=== PATIENT | male | born 1940 | race Caucasian/White ===

== ENCOUNTER 2016-12-11 17:10 | Emergency (ER) | payer OTHER ==
--- NOTE | 2016-12-11 17:22 | DR.GENAD ---
HPI - PCP Primary Care Physician: arthur - Complaint/Symptoms Chief Complaint Doctors Comments: Patient reports that he went to his physician this morning and got a shot in left knee for pain. Upon arrival at home he started shivering. He denies chest pain or dyspnea - Nurses notes reviewed Nurses Notes Review: Yes - Source History Provided: EMS PMH - PMH Past Medical History: Arthritis, CHF, Coronary Artery Disease, Depression, Dyslipidemia, GERD, Hypertension Past Surgical History: Yes Surgical History: CABG/Valve Surgery - Family History Family Medical History: [place], Coronary Artery Disease, Heart Failure, Hypertension - Social History Do you use any recreational Drugs:: No ROS - Review of Systems Constitutional: No Symptoms Reported Eyes: No Symptoms Reported ENTM: No Symptoms Reported Respiratoy: No Symptoms Reported Cardiovascular: No Symptoms Reported Gastrointestinal/Abdominal: No Symptoms Reported Genitourinary: No Symptoms Reported Neurological: No Symptoms Reported Musculoskeletal: No Symptoms Reported Integumentary: No Symptoms Reported Hematologic/Lymphatic: No Symptoms Reported Endocrine: No Symptoms Reported Psychiatric: No Symptoms Reported All Other Systems: Reviewed and Negative PE - Vital Signs Vitals: Temperature 98.8 F Pulse Rate 68 Respiratory Rate 16 Blood Pressure 159/77 O2 Sat by Pulse Oximetry 97 - General Limitations: No Limitations General Appearance: Alert, In No Apparent Distress - Head Head Exam: Normal Inspection, Atraumatic - Eyes Eye exam: Normal Appearance, PERRL, EOMI - ENT ENT Exam: Normal Exam TM/Canal Exam: Bilateral Normal Nose Exam: Normal Nose Exam Mouth Exam: Normal Inspection Throat Exam: Normal Inspection - Neck Neck Exam: Normal Inspection - Chest Chest Inspection: Normal Inspection - Respiratory Respiratory Exam: Normal Lung Sounds Bilat Respiratory Exam: Bilateral Clear to Auscultation - Cardiovascular Cardiovascular Exam: Regular Rate, Normal Rhythm - Abdominal Exam Abdominal Exam: Normal Inspection Abdominal Tenderness: negative: RUQ, RLQ, LUQ, LLQ, Epigastrium, Suprapubic, Diffuse, Mild, Moderate, Severe, Other - Extremities Extremities Exam: Normal Inspection, Full ROM - Back Back Exam: Normal Inspection, Full ROM - Neurologic Neurological Exam: Alert, Oriented X3, CN II-XII Intact - Psychiatric Psychiatric Exam: Normal Affect - Skin Skin Exam: Warm, Dry, Intact Course - Treatment Treatment: IVF, - Reevaluation 1st: Improved ROR - Labs Reviewed Result Diagrams: 12/11/16 17:40 12/11/16 17:40 Laboratory: WBC 4.7 X10^3/uL (3.6-10.0) 12/11/16 17:40 RBC 4.17 X10^6/uL (4.7-6.0) L 12/11/16 17:40 Hgb 13.0 g/dL (13.5-18.0) L 12/11/16 17:40 Hct 38.1 % (42.0-54.0) L 12/11/16 17:40 MCV 91.4 fL (80.0-100.0) 12/11/16 17:40 MCH 31.1 pg (27.0-34.0) 12/11/16 17:40 MCHC 34.1 g/dL (33.0-35.0) 12/11/16 17:40 RDW 13.7 % (11.6-16.5) 12/11/16 17:40 Plt Count 112 X10^3/uL (150.0-450.0) L 12/11/16 17:40 MPV 8.3 fL (7.4-11.0) 12/11/16 17:40 Neut % 84.4 % (42.0-75.0) H 12/11/16 17:40 Lymph % 3.4 % (21.0-51.0) L 12/11/16 17:40 [place] % 4.7 % (0.0-13.0) 12/11/16 17:40 Eos % 7.1 % (0.9-2.9) H 12/11/16 17:40 Baso % 0.4 % (0.2-1.0) 12/11/16 17:40 Neut # 4.0 x10^3/uL (2.2-4.8) 12/11/16 17:40 Lymph # 0.2 X10^3/uL (1.3-2.9) L 12/11/16 17:40 [place] # 0.2 x10^3/uL (0.3-0.8) L 12/11/16 17:40 Eos # 0.3 x10^3/uL (0.0-0.2) H 12/11/16 17:40 Baso # 0.0 X10^3/uL (0.0-0.1) 12/11/16 17:40 Absolute Nucleated RBC 0.0 /100WBC 12/11/16 17:40 Sodium 141 mmol/L (136-145) 12/11/16 17:40 Corrected Sodium TNP 12/11/16 17:40 Potassium 5.1 mmol/L (3.5-5.1) 12/11/16 17:40 Chloride 108 mmol/L (98-107) H 12/11/16 17:40 Carbon Dioxide 25.7 mmol/L (21-32) 12/11/16 17:40 BUN 19 mg/dL (7-18) H 12/11/16 17:40 Creatinine 1.14 mg/dL (0.70-1.30) 12/11/16 17:40 Est GFR (MDRD) Af Amer > 60 (>60) 12/11/16 17:40 Est GFR (MDRD) Non-Af > 60 (>60) 12/11/16 17:40 Glucose 100 mg/dL (65-99) H 12/11/16 17:40 Calcium 8.8 mg/dL (8.5-10.1) 12/11/16 17:40 Corrected Calcium TNP 12/11/16 17:40 Total Bilirubin 0.90 mg/dL (0.2-1.0) 12/11/16 17:40 AST 24 Units/L (15-37) 12/11/16 17:40 ALT 23 Units/L (12-78) 12/11/16 17:40 Alkaline Phosphatase 82 Units/L (46-116) 12/11/16 17:40 C-Reactive Protein 2.70 mg/L (0-3.0) 12/11/16 17:40 Total Protein 7.1 g/dL (6.4-8.2) 12/11/16 17:40 Albumin 3.7 g/dL (3.4-5.0) 12/11/16 17:40 Globulin 3.4 g/dL (2.5-4.5) 12/11/16 17:40 Albumin/Globulin Ratio 1.1 Ratio (1.1-2.1) 12/11/16 17:40 - XRAY XRAY Interpreted by: Self (S/P CABG, no acute pulmonary disease) - Diagnosis Discharge Problem: Chills (without fever) - Discharge Plan Condition: Stable - Follow ups/Referrals Follow ups/Referrals: Sunday Gann [Primary Care Provider] - 3 days - Instructions
[2016-12-11 17:26] VITALS: BP 159/77; BMI 29.6
[2016-12-11] MEDS ORDERED: NS 1000 ML 1,000 ML ONE (17:27)
[2016-12-11] MEDS ORDERED: NS 1000 ML 1,000 ML IV SCH (18:00)
[2016-12-11 18:04] LABS: BASOPHILS % (AUTO) 0.4 % (0.2-1.0); EOSINOPHILS # (AUTO) 0.3 x10^3/uL (0.0-0.2); EOSINOPHILS % (AUTO) 7.1 % (0.9-2.9); HEMATOCRIT 38.1 % (42.0-54.0); LYMPHOCYTES # (AUTO) 0.2 X10^3/uL (1.3-2.9); LYMPHOCYTES % (AUTO) 3.4 % (21.0-51.0); MEAN CORPUSCULAR HEMOGLOBIN 31.1 pg (27.0-34.0); MEAN CORPUSCULAR HGB CONC 34.1 g/dL (33.0-35.0); MEAN CORPUSCULAR VOLUME 91.4 fL (80.0-100.0); MEAN PLATELET VOLUME 8.3 fL (7.4-11.0); MONOCYTES # (AUTO) 0.2 x10^3/uL (0.3-0.8); MONOCYTES % (AUTO) 4.7 % (0.0-13.0); NEUTROPHILS % (AUTO) 84.4 % (42.0-75.0); PLATELET COUNT 112 X10^3/uL (150.0-450.0); RED BLOOD COUNT 4.17 X10^6/uL (4.7-6.0); RED CELL DISTRIBUTION WIDTH 13.7 % (11.6-16.5); WHITE BLOOD COUNT 4.7 X10^3/uL (3.6-10.0)
[2016-12-11 18:14] LABS: ALANINE AMINOTRANSFERASE 23 Units/L (12-78); ALBUMIN 3.7 g/dL (3.4-5.0); ALKALINE PHOSPHATASE 82 Units/L (46-116); ASPARTATE AMINO TRANSFERASE 24 Units/L (15-37); BLOOD UREA NITROGEN 19 mg/dL (7-18); CALCIUM 8.8 mg/dL (8.5-10.1); CARBON DIOXIDE 25.7 mmol/L (21-32); CHLORIDE 108 mmol/L (98-107); CREATININE 1.14 mg/dL (0.70-1.30); GLUCOSE 100 mg/dL (65-99); SODIUM 141 mmol/L (136-145); TOTAL PROTEIN 7.1 g/dL (6.4-8.2); eGFR BLACK RACES > 60 (>60); eGFR NON BLACK RACES > 60 (>60)
--- NOTE | 2016-12-11 19:45 | RAD ---
HISTORY: Fever Study: Chest one view Comparison: December 21, 2015 Findings: The patient is status post median sternotomy and CABG. The heart is enlarged. No congestive heart fa ilure is noted. The jaz are normal. The lungs are hyperinflated consistent with COPD. There is a roberts btle right basilar infiltrate suggestive of pneumonia. No pleural effusions are identified. The bony thorax is unremarkable. IMPRESSION: Cardiomegaly without congestive heart failure Right basilar pneumonia COPD Reported By:
[2016-12-11] MEDS ORDERED: LEVAQUIN PREMIX IV 750 MG 750 MG/150 ML BAG IV ONE ×2 (19:56→20:02)
== END 2016-12-11 21:21 | disposition home or self-care (01) ==
LOC: ER 17:10
DX: J18.9 Pneumonia, unspecified organism (principal); J44.9 Chronic obstructive pulmonary disease, unspecified; I51.7 Cardiomegaly; R68.83 Chills (without fever)
CPT/HCPCS: 36415; 71010; 80053; 85025; 86140; 96365; 96367; 96374; 99283; A4222; J1956

== ENCOUNTER → 2017-04-03 | Outpatient (CLI) | payer OTHER ==
--- NOTE | 2017-04-03 12:58 | MRI ---
MRI left knee without contrast Indication: Left knee pain. Technique: Multi sequence, multiplanar MR images of the left knee were obtained without contrast. Comparison: None Findings: No acute fracture, malalignment or suspicious osseous lesion is identified. There is diffuse full thickness cartilage loss throughout the weight-bearing medial femorotibial com partment with patchy subchondral edema within the medial condyle and tibial plateau. The articular c artilage of the lateral compartment demonstrates mild diffuse thinning, but otherwise appears relati vely well maintained. Small full thickness cartilage defects with subchondral edema are also present throughout the patellofemoral compartment, greatest along the medial patellar facet and mid sagitta l ridge. A small joint effusion is present. A tiny popliteal fossa cyst is also noted. There is a complex degenerative tear of the posterior horn and body medial meniscus with a horizonta l component extending into the anterior junctional zone. The posterior horn tear demonstrates a radi al component with mild associated extrusion of the medial meniscal body. No parameniscal cyst is ayaka ntified.. The lateral meniscus, ACL, PCL superficial MCL, major lateral stabilizers of the knee and extensor m echanism appear intact. Mild edema about the superficial MCL is likely reactive from underlying meni scal tear. Impression: 1. 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 2. Mild chondral degeneration of the medial patellofemoral compartment. 3. Small reactive joint effusion. Reported By:
== END ==
LOC: RAD 09:03
PROVIDERS: ATTEND Internal Medicine
DX: M25.562 Pain in left knee (principal); M25.462 Effusion, left knee
CPT/HCPCS: 73721

== ENCOUNTER → 2017-05-08 | Outpatient (CLI) | payer OTHER ==
--- NOTE | 2017-05-09 09:21 | MRI ---
HISTORY: Low back pain Study: Noncontrast MRI of the lumbar spine Comparison: No priors. A report is made available from three-view lumbar spine done at Dr. Gann's office on May 05, 2017. Advanced degenerative disc disease was noted that exam. Technique: Multiplanar multi-sequence MRI of the lumbar spine was obtained. Sagittal T1, sagittal T 2, and stir weighted images, axial T1, and axial T2 images were obtained. Findings: No fracture or subluxation is seen. Conus terminates at the L1 level. There is fatty change present throughout the bone marrow of the lumbar spine region. Atherosclerotic irregularity is present invol ving the evans of the abdominal aorta without apparent aneurysm formation. No paraspinous mass or fl uid collection is seen there is disc space narrowing and disc desiccation at L4-5 and L5-S1. T12 -- L1: 5.7 millimeter Tarlov cyst present in the right lateral neural foramen. No disc protrusio n, central spinal stenosis lateral foraminal stenosis is seen. L1 -- L2: Mild bilateral facet joint hypertrophy. No disc protrusion, central spinal stenosis or lat eral foraminal stenosis is seen. L2 -- L3: Very mild bilateral facet joint hypertrophy and ligamentum flavum hypertrophy without disc protrusion, central spinal stenosis lateral foraminal stenosis. L3 -- L4: Facet joint and ligamentum flavum hypertrophy. No disc protrusion, central spinal stenosis or foraminal stenosis is seen. Multiple small bilateral cysts are present within the lateral forami nal regions. L4 -- L5: Disc space narrowing and disc desiccation. There is bilateral facet joint and ligamentum h ypertrophy. No central spinal stenosis is seen. Mild bilateral foraminal stenosis is appreciated. L5 -- S1: Disc space narrowing and disc desiccation. Moderate bilateral foraminal stenosis is apprec iated. No central spinal stenosis is seen. IMPRESSION: Multilevel abnormalities as detailed above. Reported By:
== END | disposition home or self-care (01) | DRG 552 ==
LOC: RAD 09:08
PROVIDERS: ATTEND Internal Medicine
DX: M54.5 Low back pain (principal); M47.896 Other spondylosis, lumbar region
CPT/HCPCS: 72148

== ENCOUNTER → 2017-12-31 | Outpatient (CLI) | payer OTHER ==
--- NOTE | 2017-12-31 10:26 | CT ---
CT pelvis without contrast Indication: Right-sided hip pain with fall several weeks prior Technique: 3 mm axial images of the pelvis with coronal and sagittal reformatted images provided with out IV contrast administration. Findings: There appear to be subacute minimally displaced fractures of the right inferior and superio r pubic rami. There is sclerosis noted within the right pubic tubercle and linear lucency seen on cor onal image 36 consistent with subacute potentially insufficiency fractures. There is also linear luce ncy within the right iliac wing extending to the SI joint seen on axial image 30 with sclerosis and p eriosteal reaction consistent with subacute fracture. The fracture extends inferiorly all into a lowe r portion of the SI joint seen on axial image 35. The no acute femoral head or femoral neck fracture identified. Chronic osteopenic insufficiency fractures are noted within bilateral sacral ala. Moderat e degenerative changes noted within both SI joints and mild degenerative change of the pubic symphysi s joint. Chronic buckle fracture deformity of the S1 sacral body with sclerosis is also noted. The th e imaging of the deep pelvis demonstrates moderate calcified atherosclerotic disease and tortuosity o f the abdominal aorta. Impression: 1. Multiple fractures within the pelvis all of which appear to be subacute to chronic in age. There a re minimally displaced right inferior and superior pubic rami fractures, nondisplaced right pubic tub ercle fracture and fracture of the right ilium extending into the superior and inferior portion of th e right SI joint without diastases. Insufficiency fractures are noted within bilateral sacral ala and likely chronic, insufficiency fracture of the S2 sacral body. Neither femoral head demonstrates evid ence of malalignment or fracture. No femoral neck fracture identified. 2. Moderate osteopenia throughout the visualized lumbar spine and pelvis. 3. Given the multiple likely subacute/chronic pelvic fractures if it will make a difference in patien t care MRI examination can be performed for determination of acuity of fracture deformities. Reported By:
--- NOTE | 2017-12-31 14:41 | NM ---
HISTORY: Multiple pelvic fractures. Study: Nuclear medicine whole-body bone scan Comparison: Pelvic CT examination dated 12/31/2017. Technique: Whole body bone scintigraphy was performed in the anterior and posterior projection after the intravenous administration of 25.0 mCi of technetium labeled MDP. Findings: Abnormal uptake is seen within the iliac bones bilaterally, right superior pubic ramus, right inferio r pubic ramus, and right ischium which would be consistent with the patient's known, multifocal, pelv ic fractures which are better defined on the comparative pelvic CT examination. Degenerative uptake is seen within the spine, knee joints, and shoulder joints bilaterally. No other abnormal FDG uptake is seen to suggest an additional fracture. There is appropriate renal uptake and excretion appreciated. There is abnormal soft tissue MDP uptake also observed. IMPRESSION: Abnormal uptake is seen within the iliac bones bilaterally, right superior pubic ramus, right inferio r pubic ramus, and right ischium which would be consistent with the patient's known, multifocal, pelv ic fractures which are better defined on the comparative pelvic CT examination. These multifocal fractures could be traumatic or insufficiency related. No additional focal uptake se en to suggest malignancy or additional fractures on this bone scan examination. Degenerative appearin g MDP uptake seen within the knee joints, spine, hip joints, shoulder joints bilaterally. Reported By:
== END ==
LOC: RAD 09:20
PROVIDERS: ATTEND Orthopaedic Surgery
DX: M25.551 Pain in right hip (principal); M16.11 Unilateral primary osteoarthritis, right hip; S32.810A Multiple fractures of pelvis with stable disruption of pelvic ring, initial encounter for closed fracture; X58.XXXA Exposure to other specified factors, initial encounter; M85.89 Other specified disorders of bone density and structure, multiple sites
CPT/HCPCS: 72192; 78306; A9503

== ENCOUNTER 2019-09-20 15:56 | Observation (INO) ==
--- NOTE | 2019-09-20 18:18 | DR.DIZZY ---
HPI Time seen Time Seen by Provider: 09/20/19 18:07 PCP Primary Care Physician: Azeem HPI Comment HPI Comment: PATIENT IS 79YR OLD MALE IN ER WITH FAMILY WITH GENERALIZED WEAKNESS, DIZZINESS, ANOREXIA AND FEELING OF NOT WANTING TO GET UP AND WALK [place]. FEEL WHEN HE TRY TO GET UP DUE TO DIZZINESS. NO FEVER, CHEST PAIN, ABDOMINAL PAIN OR DYSURIA. Complaint Chief Complaint Doctor Comments: DIZZINESS, GENERALIZED WEAKNESS AND FEELING LIKE HE CANNOT WALK SINCE YESTERDAY. Chief Complaint:: "Since yesterday I have been getting really dizzy. I don't feel like I can even walk good right now. I also fell at home from being dizzy." Nurses Notes Reviewed Nurses Notes Review: Yes Source History Provided: Patient and Family Member Mode of Arrival Mode of Arrival: Wheelchair Timing Onset of Chief Complaint: 09/19/19 Came on: Suddenly Duration Duration: Constant Duration: Days Location of Weakness Weakness Location: Generalized Context Onset: At rest and With light exertion Does pt take pot. toxic medication?: No History of: None Stroke Symptoms: Dizziness Severity Severity: Abnormal activity level Modifying factors Worsens: Other (ACTIVITY.) Associated signs and symptoms Associated Signs and Symptoms: Weak and Headache PMH PMH Past Medical History: Yes Past Medical History: Arthritis, CHF, Coronary Artery Disease, Depression, Dyslipidemia, GERD and Hypertension Past Surgical History: Yes Surgical History: CABG/Valve Surgery Family History History of Family Medical Conditions: Yes Family Medical History: [place], Coronary Artery Disease, Heart Failure and Hypertension Social History Does patient currently use any type of tobacco product: No Have you used tobacco products in the last 12 months: No Type of Tobacco Use: None Does any household member use tobacco: No Alcohol Use: None Do you use any recreational Drugs:: No Lives With: Alone Lives Where: Home infectious screening In the last 2 months have you had wt loss of >10#?: NO Have you had fever, night sweats or hemotysis?: No Have you traveled outside the country in the last 6 months?: No Isolation: Standard ROS Review of Systems Constitutional: See HPI, Weakness, Fatigue and Loss of Appetite; negative Fever Eyes: No Symptoms Reported and See HPI ENTM: No Symptoms Reported and See HPI; negative Ear Pain, Nose Discharge, Nose Congestion and Throat Pain Respiratoy: No Symptoms Reported, See HPI and Short of Breath (ON EXERTION.) Cardiovascular: No Symptoms Reported and See HPI; negative Chest Pain, Edema, Palpitations and Syncope Gastrointestinal/Abdominal: No Symptoms Reported and See HPI; negative Abdominal Pain, Constipation, Diarrhea, Nausea and Vomiting Genitourinary: No Symptoms Reported and See HPI; negative Dysuria, Hematuria and Pain Neurological: See HPI, Headache, Weakness and Dizziness Musculoskeletal: See HPI and Muscle Pain; negative Back Pain Integumentary: Dryness Hematologic/Lymphatic: Easy Bruising; negative Swollen Glands Endocrine: Increased Thirst and Decreased Appetite; negative Increased Urine Psychiatric: No Symptoms Reported and See HPI All Other Systems: Reviewed and Negative PE Vital Signs Vitals: Temperature 98 F Pulse Rate [Left Brachial] 94 Pulse Rate 93 Respiratory Rate 20 Blood Pressure [Right Arm] 151/98 Blood Pressure 168/93 O2 Sat by Pulse Oximetry 98 General Limitations: No Limitations General Appearance: Alert and In No Apparent Distress Head Head Exam: Normal Inspection and Atraumatic Eyes Eye exam: Normal Appearance, PERRL and EOMI; negative Scleral Icterus and Conjunctival Injection Pupils: Regular, Round: Bilateral and Reactive: Bilateral Sclera/Conjunctival: Normal Inspection: Bilateral ENT ENT Exam: Normal Exam, Normal Oropharynx, Normal External Ear Exam and TM's Normal Bilaterally Neck Neck Exam: Normal Inspection and Trachea Midline; negative Tenderness and Lymphadenopathy Chest Chest Inspection: Normal Inspection and Symmetric Chest Wall Rise; negative Tenderness Respiratory Respiratory Exam: Normal Lung Sounds Bilat; negative Accessory Muscle Use, Chest Wall Tenderness and Respiratory Distress Respiratory Exam: Bilateral: Rhonchi and Lower: Rhonchi Cardiovascular Cardiovascular Exam: Regular Rate, Normal Rhythm and Normal Heart Sounds; negative Systolic Murmur and Diastolic Murmur Abdominal Exam Abdominal Exam: Normal Inspection, Normal Bowel Sounds and Soft; negative Tenderness Rectal Rectal Exam: Deferred Extremeties Extremities Exam: Normal Inspection and Normal Capillary Refill; negative Tenderness, Edema and Calf Tenderness Back Back Exam: Normal Inspection; negative Tenderness, (R) CVA Tenderness and (L) CVA Tenderness Neurologic Neurological Exam: Alert, Oriented X3 and CN II-XII Intact; negative Motor Sensory Deficit Patient Oriented To: Person, Place and Time Cranial Nerve Exam: EOM Function (II, III, IV, ): Normal, Facial Sensation (V): Normal, Facial Palsy (VII): Normal, Gag reflex (XI): Normal and Tongue Deviation: Normal Motor Strength - LUE: 5/5 Motor Strength - RUE: 5/5 Motor Strength - LLE: 5/5 Motor Strength - RLE: 5/5 Upper Motor Neuron Exam: Babinski Sign: Normal Psychiatric Psychiatric Exam: Normal Affect and Normal Mood Skin Skin Exam: Dry MDM Additional Information Obtained Additional Information Obtained From: Family Differential Diagnosis Differential Diagnosis: Anemia, CVA, Dehydration, Dysrhythmia, Electrolyte disorder, Hypoglycemia, Myocardial infarction, TIA and Central Vertigo COURSE Treatment Treatment: SEE ORDERS. NS 1L PLUS KCL 40MEQ AT 125CC/HR. Consultation Consultation Comments: DISCUSSED PATIENT WITH DR. AGUIAR AND HE WILL ADMIT PATIENT. Education/Counseling Education/Counseling: Patient and Family Educated On: Diagnosis ROR Labs Reviewed Laboratory Results Reviewed?: Yes Result Diagrams: 09/21/19 04:52 09/21/19 04:52 Laboratory: WBC 5.2 X10^3/uL (3.6-10.0) 09/20/19 18:31 RBC 3.96 X10^6/uL (4.7-6.0) L 09/20/19 18:31 Hgb 13.0 g/dL (13.5-18.0) L 09/20/19 18:31 Hct 37.2 % (42.0-54.0) L 09/20/19 18:31 MCV 94.2 fL (80.0-100.0) 09/20/19 18:31 MCH 32.9 pg (27.0-34.0) 09/20/19 18:31 MCHC 34.9 g/dL (33.0-35.0) 09/20/19 18:31 RDW 13.4 % (11.6-16.5) 09/20/19 18:31 Plt Count 150 X10^3/uL (150.0-450.0) 09/20/19 18:31 MPV 8.1 fL (7.4-11.0) 09/20/19 18:31 Neut % (Auto) 67.2 % (42.0-75.0) 09/20/19 18:31 Lymph % (Auto) 10.3 % (21.0-51.0) L 09/20/19 18:31 [place] % (Auto) 10.1 % (0.0-13.0) 09/20/19 18:31 Eos % (Auto) 12.2 % (0.9-2.9) H 09/20/19 18:31 Baso % (Auto) 0.2 % (0.2-1.0) 09/20/19 18:31 Neut # (Auto) 3.5 x10^3/uL (2.2-4.8) 09/20/19 18:31 Lymph # (Auto) 0.5 X10^3/uL (1.3-2.9) L 09/20/19 18:31 [place] # (Auto) 0.5 x10^3/uL (0.3-0.8) 09/20/19 18:31 Eos # (Auto) 0.6 x10^3/uL (0.0-0.2) H 09/20/19 18:31 Baso # (Auto) 0.0 X10^3/uL (0.0-0.1) 09/20/19 18:31 Absolute Nucleated RBC 0.0 /100WBC 09/20/19 18:31 Sodium 142 mmol/L (136-145) 09/20/19 18:31 Corrected Sodium 145 mmol/L (136-145) 09/20/19 18:31 Potassium 2.9 mmol/L (3.5-5.1) L* 09/20/19 18:31 Chloride 106 mmol/L (98-107) 09/20/19 18:31 Carbon Dioxide 27.3 mmol/L (21-32) 09/20/19 18:31 BUN 19 mg/dL (7-18) H 09/20/19 18:31 Creatinine 1.63 mg/dL (0.70-1.30) H 09/20/19 18:31 Est GFR (MDRD) Af Amer 53 (>60) L 09/20/19 18:31 Est GFR (MDRD) Non-Af 43 (>60) L 09/20/19 18:31 Glucose 209 mg/dL (65-99) H 09/20/19 18:31 Hemoglobin A1c 6.6 % 09/20/19 18:31 Calcium 8.9 mg/dL (8.5-10.1) 09/20/19 18:31 Corrected Calcium TNP 09/20/19 18:31 Magnesium 2.2 mg/dL (1.7-2.9) 09/20/19 18:31 Total Bilirubin 0.40 mg/dL (0.2-1.0) 09/20/19 18:31 AST 18 Units/L (15-37) 09/20/19 18:31 ALT 16 Units/L (12-78) 09/20/19 18:31 Alkaline Phosphatase 65 Units/L (46-116) 09/20/19 18:31 Creatine Kinase 43 Units/L (39-308) 09/20/19 18:31 CK-MB (CK-2) < 1.0 ng/mL (0-4.0) 09/20/19 18:31 CK/CKMB % Calc 2.3 % (<4) 09/20/19 18:31 Troponin I < 0.02 ng/mL (0-1.5) 09/20/19 18:31 Total Protein 7.2 g/dL (6.4-8.2) 09/20/19 18:31 Albumin 3.5 g/dL (3.4-5.0) 09/20/19 18:31 Globulin 3.7 g/dL (2.5-4.5) 09/20/19 18:31 Albumin/Globulin Ratio 0.9 Ratio (1.1-2.1) L 09/20/19 18:31 Specimen Type Clean catch urine 09/20/19 19:08 Urine Color Yellow (YELLOW) 09/20/19 19:08 Urine Appearance Slightly hazy (CLEAR) 09/20/19 19:08 Urine pH 5.0 (5.0 - 8.0) 09/20/19 19:08 Ur Specific [place] 1.015 (1.000-1.030) 09/20/19 19:08 Urine Protein 1+ (NEGATIVE) 09/20/19 19:08 Urine Glucose (UA) 4+ (NEGATIVE) 09/20/19 19:08 Urine Ketones Negative (NEGATIVE) 09/20/19 19:08 Urine Occult Blood 1+ (NEGATIVE) 09/20/19 19:08 Urine Nitrite Negative (NEGATIVE) 09/20/19 19:08 Urine Bilirubin Negative (NEGATIVE) 09/20/19 19:08 Urine Urobilinogen Normal (NORMAL) 09/20/19 19:08 Ur Leukocyte Esterase Negative (NEGATIVE) 09/20/19 19:08 Urine RBC 0-2 /HPF (0-3) 09/20/19 19:08 Urine WBC 0-2 /HPF (0-5) 09/20/19 19:08 Ur Squamous Epith Cells Few /HPF (NEGATIVE) 09/20/19 19:08 Urine Bacteria Trace /HPF (NEGATIVE) 09/20/19 19:08 Urine Mucus Few /HPF (NEGATIVE) 09/20/19 19:08 Ur Culture Indicated? No/not indicated 09/20/19 19:08 XRAY XRAY Interpreted by: Radiologist XRAY Findings: REPORTS NOTED AND DISCUSSED WITH PATIENT. EKG Rate: 82 [place]: Normal Rhythm: NSR Block: None Hypertrophy: LVH ST: Nonsp Opioid Opioid Risk Tool Age (Ankur box if 16-45): No History of Preadolescent Sexual Abuse: No Total: 0 Total Score Risk Category: Low Risk Copyright: Denzel ANN predicting aberrant behaviors
[2019-09-20 18:53] LABS: BASOPHILS % (AUTO) 0.2 % (0.2-1.0); EOSINOPHILS # (AUTO) 0.6 x10^3/uL (0.0-0.2); EOSINOPHILS % (AUTO) 12.2 % (0.9-2.9); HEMATOCRIT 37.2 % (42.0-54.0); LYMPHOCYTES # (AUTO) 0.5 X10^3/uL (1.3-2.9); LYMPHOCYTES % (AUTO) 10.3 % (21.0-51.0); MEAN CORPUSCULAR HEMOGLOBIN 32.9 pg (27.0-34.0); MEAN CORPUSCULAR HGB CONC 34.9 g/dL (33.0-35.0); MEAN CORPUSCULAR VOLUME 94.2 fL (80.0-100.0); MEAN PLATELET VOLUME 8.1 fL (7.4-11.0); MONOCYTES # (AUTO) 0.5 x10^3/uL (0.3-0.8); MONOCYTES % (AUTO) 10.1 % (0.0-13.0); NEUTROPHILS # (AUTO) 3.5 x10^3/uL (2.2-4.8); NEUTROPHILS % (AUTO) 67.2 % (42.0-75.0); PLATELET COUNT 150 X10^3/uL (150.0-450.0); RED BLOOD COUNT 3.96 X10^6/uL (4.7-6.0); RED CELL DISTRIBUTION WIDTH 13.4 % (11.6-16.5); WHITE BLOOD COUNT 5.2 X10^3/uL (3.6-10.0)
--- NOTE | 2019-09-20 19:05 | RAD ---
CHEST, 1 VIEWHISTORY: SOBStudy: AP view of the chest.Comparison:NoneFindings:The cardiomediastinal silhouette is normal. No focal consolidations, pleural effusions or pneumothorax. Scarring atelectasis of the lung bases bilaterally. Bilateral hyperexpansion and interstitial prominence.IMPRESSION:1. No acute cardiopulmonary process.2. Findings of COPD.Electronically signed by: ADRIAN DUMAS (Sep 20, 2019 19:03:25)
--- NOTE | 2019-09-20 19:12 | CT ---
HISTORY: Headaches and mental status changeStudy: CT brain without contrastComparison: 12/25/2018Technique:Multiple axial images of the brain were obtained from the skull base to the vertex without administration of IV contrast. Automated dose control was utilized.Findings:The ventricles are mildly enlarged with diffuse mild prominence of the cortical sulci. There is mild periventricular low density bilaterally. No intracranial hemorrhage or edema is seen. There is no extra-axial fluid collection or mass. There is moderate mucosal thickening throughout the ethmoid and sphenoid sinuses extending into the maxillary air cells. There are no air-fluid levels. No fracture is seen. The midline structures are unremarkable.IMPRESSION:Mild atrophy and mild chronic microischemic changes scattered in the deep white matter with no acute intracranial abnormality seen.Moderate chronic pansinusitis.Electronically signed by: YARA LOO (Sep 20, 2019 19:11:07)
[2019-09-20 19:24] LABS: APPEARANCE,URINE SLIGHTLY HAZY (CLEAR); BILIRUBIN,URINE NEGATIVE (NEGATIVE); BLOOD/HEMOGLOBIN,URINE 1+ (NEGATIVE); COLOR,URINE YELLOW (YELLOW); GLUCOSE, URINE 4+ (NEGATIVE); KETONES,URINE NEGATIVE (NEGATIVE); LEUKOCYTE ESTERASE ,URINE NEGATIVE (NEGATIVE); NITRITES,URINE NEGATIVE (NEGATIVE); PROTEIN,URINE 1+ (NEGATIVE); UROBILINOGEN,URINE NORMAL (NORMAL)
[2019-09-20 19:29] LABS: RBC,URINE 0-2 /HPF (0-3)
[2019-09-20 19:30] LABS: BACTERIA,URINE TRACE /HPF (NEGATIVE); MUCUS,URINE FEW /HPF (NEGATIVE); SQUAMOUS EPITHELIAL CELL,UR FEW /HPF (NEGATIVE)
[2019-09-20 19:40] LABS: ALANINE AMINOTRANSFERASE 16 Units/L (12-78); ALBUMIN 3.5 g/dL (3.4-5.0); ALKALINE PHOSPHATASE 65 Units/L (46-116); ASPARTATE AMINO TRANSFERASE 18 Units/L (15-37); BLOOD UREA NITROGEN 19 mg/dL (7-18); CALCIUM 8.9 mg/dL (8.5-10.1); CARBON DIOXIDE 27.3 mmol/L (21-32); CHLORIDE 106 mmol/L (98-107); CKMB % 2.3 % (<4); COR NA(FOR HYPERGLY) 145 mmol/L (136-145); CREATINE KINASE 43 Units/L (39-308); CREATINE KINASE MB < 1.0 ng/mL (0-4.0); CREATININE 1.63 mg/dL (0.70-1.30); SODIUM 142 mmol/L (136-145); TOTAL PROTEIN 7.2 g/dL (6.4-8.2); TROPONIN I < 0.02 ng/mL (0-1.5); eGFR NON BLACK RACES 43 (>60)
[2019-09-20] MEDS: NS + KCL 40 MEQ/L 1,000 ML IV SCH (21:23)
[2019-09-20 22:22] VITALS: BMI 25.9
[2019-09-20 23:11] LABS: CKMB % 2.4 % (<4); CREATINE KINASE 41 Units/L (39-308); CREATINE KINASE MB < 1.0 ng/mL (0-4.0); TROPONIN I 0.02 ng/mL (0-1.5)
[2019-09-21] MEDS: NS + KCL 40 MEQ/L 1,000 ML IV SCH (05:41)
[2019-09-21 06:02] LABS: ALANINE AMINOTRANSFERASE 13 Units/L (12-78); ALBUMIN 3.1 g/dL (3.4-5.0); ALKALINE PHOSPHATASE 58 Units/L (46-116); ASPARTATE AMINO TRANSFERASE 16 Units/L (15-37); BLOOD UREA NITROGEN 15 mg/dL (7-18); CALCIUM 8.4 mg/dL (8.5-10.1); CHLORIDE 110 mmol/L (98-107); CKMB % 2.5 % (<4); COR CA(FOR HYPOALB) 9.1 mg/dL (8.5-10.1); COR NA(FOR HYPERGLY) 145 mmol/L (136-145); CREATINE KINASE 40 Units/L (39-308); CREATINE KINASE MB < 1.0 ng/mL (0-4.0); CREATININE 1.35 mg/dL (0.70-1.30); MAGNESIUM 1.8 mg/dL (1.7-2.9); SODIUM 144 mmol/L (136-145); TOTAL PROTEIN 6.3 g/dL (6.4-8.2); TROPONIN I 0.02 ng/mL (0-1.5); eGFR NON BLACK RACES 54 (>60)
[2019-09-21 06:05] LABS: BASOPHILS % (AUTO) 0.3 % (0.2-1.0); EOSINOPHILS # (AUTO) 0.6 x10^3/uL (0.0-0.2); EOSINOPHILS % (AUTO) 12.3 % (0.9-2.9); HEMATOCRIT 33.7 % (42.0-54.0); LYMPHOCYTES # (AUTO) 0.6 X10^3/uL (1.3-2.9); LYMPHOCYTES % (AUTO) 11.1 % (21.0-51.0); MEAN CORPUSCULAR HEMOGLOBIN 33.5 pg (27.0-34.0); MEAN CORPUSCULAR HGB CONC 35.6 g/dL (33.0-35.0); MEAN CORPUSCULAR VOLUME 94.1 fL (80.0-100.0); MEAN PLATELET VOLUME 8.3 fL (7.4-11.0); MONOCYTES # (AUTO) 0.5 x10^3/uL (0.3-0.8); MONOCYTES % (AUTO) 9.7 % (0.0-13.0); NEUTROPHILS # (AUTO) 3.5 x10^3/uL (2.2-4.8); NEUTROPHILS % (AUTO) 66.6 % (42.0-75.0); PLATELET COUNT 149 X10^3/uL (150.0-450.0); RED BLOOD COUNT 3.58 X10^6/uL (4.7-6.0); RED CELL DISTRIBUTION WIDTH 13.6 % (11.6-16.5); WHITE BLOOD COUNT 5.3 X10^3/uL (3.6-10.0)
[2019-09-21 12:08] VITALS: BP 170/89
[2019-09-21] MEDS ORDERED: COLACE CAP 100 MG PO SCH (21:00)
--- NOTE | 2019-09-24 15:24 | DR.CARTERS ---
Short Stay Summary - Admission Date Date of Admission: 09/20/19 - Discharge Date Discharge Date: 09/21/19 - Admission Diagnoses (1) Hypokalemia Status: Acute (2) Generalized weakness Status: Acute (3) Dehydration Status: Acute (4) Vertigo Status: Acute - Hospital Course Hospital Course: IS A 79 YEAR OLD PATIENT OF OURS WHO PRESENTED TO THE ER WITH COMPLAINTS OF DIZZINESS, GENERALIZED WEAKNESS, UNSTEADY GAIT X 1 DAY, AND SHORTNESS OF BREATH ON EXERTION. HE ALSO REPORTED FALLING AT HOME DUE TO DIZZINESS. FAMILY REPORTED THAT HE HAS NOT BEEN EATING WELL. HE HAS A PMH OF CAD, CHF, HTN, ARTHRITIS, DYSLIPIDEMIA, GERD, AND CABG. ON ARRIVAL, VITALS WERE 98.0-112-18-97%-171/97. LABS WERE OBTAINED. ABNORMAL LAB VALUES INCLUDED THE FOLLOWING: RBC 3.96, HGB 13.0, HCT 37.2, POTASSIUM 2.9, BUN 19, CREATININE 1.63, GLUCOSE 209. CARDIAC ENZYMES WITHIN NORMAL LIMITS. URINALYSIS IS UNREMARKABLE. BLOOD CULTURES WERE OBTAINED. A BRAIN CT WAS OBTAINED AND REVEALED: Mild atrophy and mild chronic microischemic changes scattered in the deep white matter with no acute intracranial abnormality seen. Moderate chronic pansinusitis. A CHEST XRAY WAS OBTAINED AND REVEALED: 1. No acute cardiopulmonary process. 2. Findings of COPD. EKG REVEALED: SINUS RHYTHM WITH HR 22. HE WAS ADMITTED FOR FURTHER EVALUATION AND TREATMENT OF HYPOKALEMIA, DEHYDRATION, GENERALIZED WEAKNESS, AND VERTIGO. HE WAS STARTED ON NS WITH 40MEQ KCL AT 125ML/HR AND HIS MECLIZINE WAS RESUMED. WE PLANNED TO FOLLOW UP WITH AM LABS, ECHO, AND CONTINUE TO MONITOR. ON MORNING ROUND, PATIENT IS ALERT AND ORIENTED, LYING IN BED ON MORNING ROUNDS. HE REPORTS IMPROVEMENT IN SYMPTOMS, BUT CONTINUES WITH SOME DIZZINESS AT TIMES. ON EXAMINATION, HEART IS REGULAR IN RATE AND RHYTHM. BILATERAL LUNGS ARE NOTED WITH DIMINISHED LUNG SOUNDS THROGHOUT. ABDOMEN IS ROUND, SOFT, AND NON-TENDER WITH NORMAL BOWEL SOUNDS IN ALL QUADRANTS. HIS VITALS THIS MORNING ARE: 98.0-96-20-97%-165/92. LABS WERE OBTAINED. ABNORMAL LAB VALUES INCLUDE THE FOLLOWING: RBC 3.58, HGB 12.0, HCT 33.7, PLT COUNT 149, POTASSIUM 3.1, CHLORIDE 110, CREATININE 1.35, GLUCOSE 125, CALCIUM 8.4, TOTAL PROTEIN 6.3, ALBUMIN 3.1. BLOOD CULTURES PENDING. AN ECHO WAS OBTAINED TODAY AND IS ESSENTIALLY NORMAL. WE PLANNED FOR DISCHARGE. INSTRUCTIONS FOR MEDICATIONS AND FOLLOW UP WERE DISCUSSED WITH PATIENT AND HIS DAUGHTER. THEY VERBALIZED UNDERSTANDING OF ALL ORDERS. HE WAS DISCHARGED HOME WITH NEW PRESCRIPTIONS FOR MECLIZINE 25MG PO TID AND VALIUM 5MG PO HS. WE WILL ARRANGE FOR VISITING NURSES TO MONITOR PATIENT. WE WILL FOLLOW HIM IN THE OFFICE IN ONE WEEK. PATIENT DISCHARGED TO HOME WITH FAMILY IN STABLE CONDITION. - Discharge Medications Discharge Medications: Home Medication List amlodipine 2.5 mg PO DAILY 09/21/19 [History] clobetasol [Temovate] 1 applic TOPICAL BID #1 g 09/21/19 [Rx] diazepam [Valium] 5 mg PO QHS #30 tab MDD 1 09/21/19 [Rx] diltiazem HCl [Cartia XT] 120 mg PO DAILY 09/21/19 [History] meclizine 25 mg PO TID #90 tab 09/21/19 [Rx] megestrol 40 mg PO BID 09/21/19 [History] meloxicam 7.5 mg PO DAILY 09/21/19 [History] metoprolol tartrate 100 mg PO BID 09/21/19 [History] montelukast 10 mg PO DAILY 09/21/19 [History] omeprazole 20 mg PO DAILY 09/21/19 [History] rosuvastatin 20 mg PO HS 09/21/19 [History] tamsulosin 0.4 mg PO DAILY 09/21/19 [History] triamterene-hydrochlorothiazid 1 cap PO DAILY 09/21/19 [History] venlafaxine 150 mg PO DAILY 09/21/19 [History] Prescriptions: clobetasol [Temovate] Sunday Gann diazepam [Valium] Sunday Gann meclizine Sunday Gann Risks, benefits, and alternatives of opioids discussed: No Prescription drug monitoring program results: PDMP was not reviewed - Discharge Plan Disposition: HOME HEALTH SERVICE Condition: Stable Prescriptions: clobetasol [Temovate] 1 applic TOPICAL BID #1 g diazepam [Valium] 5 mg PO QHS #30 tab MDD 1 meclizine 25 mg PO TID #90 tab - Follow up/Referrals Follow up/Referrals: [facility] [STAFF PHYSICIAN] - Sunday Gann [Primary Care Provider] - 09/28/19 12:40 pm - Instructions Instructions: Fall Prevention in the Home, Adult, [id number], Hypokalemia, Vertigo, [id number], Hypertension, [id number], Heart Failure, [id number]-[id number], Dizziness, [id number], Weakness, Rehydration, Elderly, Dehydration, Elderly, [id number] Additional Instructions: DIET TOLERATED. ACTIVITY TOLERATED. Forms: Patient Portal
== END 2019-09-21 12:30 | disposition home health service (06) ==
LOC: ER 16:09 → MED/SURG 16:09
PROVIDERS: ADMIT Family Medicine; ATTEND Internal Medicine
CPT/HCPCS: 36415; 70450; 71010; 71045; 80053; 81001; 82550; 82553; 83036; 83735; 84484; 85025; 87040; 93005; 93306; 94760; 96360; 96361; 96365; 99284; A4216; A4222; G0378

== ENCOUNTER 2020-02-25 11:51 | Observation (INO) ==
--- NOTE | 2020-02-25 12:09 | DR.EXTPAIN ---
HPI Time seen Time Seen by Provider: 02/25/20 12:04 HPI Comment HPI Comment: 79 y/o man 1hr s/p GLF, denies LOC, denies BOV, denies vertigo or dizziness, denies CP or SHOB, presents with c/o left shoulder pain when he moves it. 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 He admits to hitting his head on the wall and landing on the left side. The patient has been able to ambulate without problems after the fall. Denies any lower limb weakness or incontinence. Denies any other recent falls. Denies taking anticoagulants, admits to taking daily ASA. Complaint/Symptoms Chief Complaint:: Ground level fall Nurses notes reviewed Nurses Notes Review: Yes Context History of: None Associated signs and symptoms Associated Signs and Symptoms: None PMH PMH Past Medical History: Arthritis, CHF, Coronary Artery Disease, Depression, Dyslipidemia, GERD and Hypertension Past Surgical History: Yes Surgical History: CABG/Valve Surgery Family History Family Medical History: [place], Coronary Artery Disease, Heart Failure and Hypertension Social History Do you use any recreational Drugs:: No ROS Review of Systems Constitutional: No Symptoms Reported Eyes: No Symptoms Reported ENTM: No Symptoms Reported Respiratoy: No Symptoms Reported Cardiovascular: No Symptoms Reported Gastrointestinal/Abdominal: No Symptoms Reported Genitourinary: No Symptoms Reported Neurological: No Symptoms Reported Musculoskeletal: See HPI and Shoulder Integumentary: No Symptoms Reported Hematologic/Lymphatic: No Symptoms Reported Endocrine: No Symptoms Reported Psychiatric: No Symptoms Reported All Other Systems: Reviewed and Negative PE Vital Signs Vitals: Temperature 98.7 F Pulse Rate [Right Brachial] 81 Pulse Rate 71 Respiratory Rate 16 Blood Pressure [Left Arm] 182/91 Blood Pressure [Right Arm] 151/98 Blood Pressure 187/92 O2 Sat by Pulse Oximetry 99 General Limitations: No Limitations General Appearance: Alert and In No Apparent Distress Head Head Exam: Other (abrasion to the occiput, no surrounding hematoma or tenderness, no lacerations. ); negative Normal Inspection and Atraumatic Eyes Eye exam: Normal Appearance ENT ENT Exam: Normal Exam Neck Neck Exam: Normal Inspection, Full ROM and Other (No step offs, no tenderness. ) Chest Chest Inspection: Normal Inspection and Symmetric Chest Wall Rise; negative Tenderness Respiratory Respiratory Exam: Normal Lung Sounds Bilat; negative Accessory Muscle Use and Chest Wall Tenderness Cardiovascular Cardiovascular Exam: Regular Rate and Normal Rhythm Abdominal Exam Abdominal Exam: Normal Inspection, Normal Bowel Sounds and Soft; negative Dis tention, Tenderness, Guarding, Rebound, Rigidity and Trauma Extremities Extremities Exam: Normal Inspection Upper Extremities Shoulder Exam: Normal Inspection, Full ROM and Other (Pain on shoulder movem ent.); negative Tenderness Elbow Exam: Normal Inspection and Full ROM; negative Tenderness Forearm Exam: Normal Inspection and Full ROM; negative Tenderness Hand Exam: Normal Inspection and Full ROM; negative Tenderness Lower Extremities Hip/Pelvis Exam: Normal Inspection, Full ROM and Pelvis Stable; negative Tenderness Knee Exam: Normal Inspection and Full ROM; negative Tenderness Lower Leg Exam: Normal Inspection and Full ROM; negative Tenderness Ankle Exam: Normal Inspection and Full ROM; negative Tenderness Back Back Exam: Normal Inspection Neurological Neurological Exam: Alert, Oriented X3 and CN II-XII Intact Psychiatric Psychiatric Exam: Normal Affect and Normal Mood Skin Skin Exam: Warm, Dry, Intact and Normal Color COURSE Treatment Treatment: Results concerning for hypokalemia, t1 spinal process fracture, and suspicion of aortic dissection. CKD unchanged from previous. Patient remains largely asymptomatic. Will perform CTA of Chest/abdomen to better assess. Effervescent K+ given, 40 mEq PO. CTA chest/abd was negative for aortic dissection. Discussed the case with Dr. Oreilly, who agreed that the patient needs admission for obs and K+ replacement. Dr. Freed, orthopedics, is currently out of town and couldn't be reached for consult for the T1 SP fx. [facility] Labs Reviewed Laboratory Results Reviewed?: Yes Result Diagrams: 02/25/20 12:14 02/25/20 12:14 Laboratory: WBC 6.9 X10^3/uL (3.6-10.0) 02/25/20 12:14 RBC 4.10 X10^6/uL (4.7-6.0) L 02/25/20 12:14 Hgb 13.4 g/dL (13.5-18.0) L 02/25/20 12:14 Hct 37.8 % (42.0-54.0) L 02/25/20 12:14 MCV 92.3 fL (80.0-100.0) 02/25/20 12:14 MCH 32.7 pg (27.0-34.0) 02/25/20 12:14 MCHC 35.5 g/dL (33.0-35.0) H 02/25/20 12:14 RDW 13.5 % (11.6-16.5) 02/25/20 12:14 Plt Count 165 X10^3/uL (150.0-450.0) 02/25/20 12:14 MPV 7.8 fL (7.4-11.0) 02/25/20 12:14 Neut % (Auto) 72.1 % (42.0-75.0) 02/25/20 12:14 Lymph % (Auto) 5.9 % (21.0-51.0) L 02/25/20 12:14 Crook % (Auto) 8.0 % (0.0-13.0) 02/25/20 12:14 Eos % (Auto) 13.7 % (0.9-2.9) H 02/25/20 12:14 Baso % (Auto) 0.3 % (0.2-1.0) 02/25/20 12:14 Neut # (Auto) 5.0 x10^3/uL (2.2-4.8) H 02/25/20 12:14 Lymph # (Auto) 0.4 X10^3/uL (1.3-2.9) L 02/25/20 12:14 Crook # (Auto) 0.5 x10^3/uL (0.3-0.8) 02/25/20 12:14 Eos # (Auto) 0.9 x10^3/uL (0.0-0.2) H 02/25/20 12:14 Baso # (Auto) 0.0 X10^3/uL (0.0-0.1) 02/25/20 12:14 Absolute Nucleated RBC 0.0 /100WBC 02/25/20 12:14 Sodium 137 mmol/L (136-145) 02/25/20 12:14 Corrected Sodium 139 mmol/L (136-145) 02/25/20 12:14 Potassium 2.6 mmol/L (3.5-5.1) L* 02/25/20 12:14 Chloride 100 mmol/L (98-107) 02/25/20 12:14 Carbon Dioxide 26.8 mmol/L (21-32) 02/25/20 12:14 BUN 26 mg/dL (7-18) H 02/25/20 12:14 Creatinine 1.88 mg/dL (0.70-1.30) H 02/25/20 12:14 Est GFR (MDRD) Af Amer 45 (>60) L 02/25/20 12:14 Est GFR (MDRD) Non-Af 37 (>60) L 02/25/20 12:14 Glucose 180 mg/dL (65-99) H 02/25/20 12:14 Calcium 9.0 mg/dL (8.5-10.1) 02/25/20 12:14 Corrected Calcium TNP 02/25/20 12:14 Magnesium 2.3 mg/dL (1.7-2.9) 02/25/20 12:14 Total Bilirubin 0.40 mg/dL (0.2-1.0) 02/25/20 12:14 AST 22 Units/L (15-37) 02/25/20 12:14 ALT 21 Units/L (12-78) 02/25/20 12:14 Alkaline Phosphatase 61 Units/L (46-116) 02/25/20 12:14 Total Protein 7.6 g/dL (6.4-8.2) 02/25/20 12:14 Albumin 3.8 g/dL (3.4-5.0) 02/25/20 12:14 Globulin 3.8 g/dL (2.5-4.5) 02/25/20 12:14 Albumin/Globulin Ratio 1.0 Ratio (1.1-2.1) L 02/25/20 12:14 Other Results Comments: EKG demonstrates t-wave flattening and u waves, as well as T-U waves, consistent with hypokalemia XRAY XRAY Interpreted by: Radiologist, Self and Both X-ray Results: T1 spinous process fx, non-contrasted CT findings suspicious for aortic dissection. EKG Rate: 67 Slater: Normal Rhythm: NSR Block: None Hypertrophy: None ST: Normal Opioid Opioid Risk Tool Age (Ankur box if 16-45): No History of Preadolescent Sexual Abuse: No Total: 0 Total Score Risk Category: Low Risk Copyright: Denzel ANN predicting aberrant behaviors Diagnosis Discharge Problem: Acute hypokalemia, Closed fracture of spinous process of thoracic vertebra Instructions Forms: Excuse From Work Precautions for COVID19 Patient Portal Social Distancing
[2020-02-25 12:11] VITALS: BMI 23.7
[2020-02-25 12:23] LABS: BASOPHILS % (AUTO) 0.3 % (0.2-1.0); EOSINOPHILS # (AUTO) 0.9 x10^3/uL (0.0-0.2); EOSINOPHILS % (AUTO) 13.7 % (0.9-2.9); HEMATOCRIT 37.8 % (42.0-54.0); HEMOGLOBIN 13.4 g/dL (13.5-18.0); LYMPHOCYTES # (AUTO) 0.4 X10^3/uL (1.3-2.9); LYMPHOCYTES % (AUTO) 5.9 % (21.0-51.0); MEAN CORPUSCULAR HEMOGLOBIN 32.7 pg (27.0-34.0); MEAN CORPUSCULAR HGB CONC 35.5 g/dL (33.0-35.0); MEAN CORPUSCULAR VOLUME 92.3 fL (80.0-100.0); MEAN PLATELET VOLUME 7.8 fL (7.4-11.0); MONOCYTES # (AUTO) 0.5 x10^3/uL (0.3-0.8); NEUTROPHILS % (AUTO) 72.1 % (42.0-75.0); PLATELET COUNT 165 X10^3/uL (150.0-450.0); RED CELL DISTRIBUTION WIDTH 13.5 % (11.6-16.5); WHITE BLOOD COUNT 6.9 X10^3/uL (3.6-10.0)
[2020-02-25 12:30] LABS: BLOOD UREA NITROGEN 26 mg/dL (7-18); CARBON DIOXIDE 26.8 mmol/L (21-32); CHLORIDE 100 mmol/L (98-107); COR NA(FOR HYPERGLY) 139 mmol/L (136-145); CREATININE 1.88 mg/dL (0.70-1.30); SODIUM 137 mmol/L (136-145); eGFR NON BLACK RACES 37 (>60)
[2020-02-25 12:36] LABS: ALANINE AMINOTRANSFERASE 21 Units/L (12-78); ALBUMIN 3.8 g/dL (3.4-5.0); ALKALINE PHOSPHATASE 61 Units/L (46-116); ASPARTATE AMINO TRANSFERASE 22 Units/L (15-37); TOTAL PROTEIN 7.6 g/dL (6.4-8.2)
[2020-02-25] MEDS ORDERED: KLOR-CON PO ONE (12:45)
--- NOTE | 2020-02-25 12:45 | CT ---
HISTORYFELL THIS A.M, C/O NECK AND MID BACK PAIN, HIT HEAD, C/O PAIN, SHOULDER PAINSTUDYCT HEAD WITHOUT CONTRASTCOMPARISONDecember 2018TECHNIQUEAxial CT of the head is performed from the base of the skull through the vertex WITHOUT contrast . Multiplaner reformats are generated from the original axial data.FINDINGSAge related cortical volume loss is observed. There is commensurate dilation of the lateral ventricles. Moderate chronic microangiopathic ischemic white matter changes of the supratentorial brain are observed. There is no evidence of an acute intracranial hemorrhage or extra-axial fluid collection. There is no mass effect, shift or cerebral edema. Atherosclerotic calcifications are associated with the cavernous ICA segments. There is no acute stage, large artery territorial infarct.Mild multi chamber paranasal sinus mucosal thickening is observed affecting the right sphenoid sinus and right and left maxillary sinus chamber to the greatest degree. The mastoid air cells are clear. No skull fracture or extracalvarial soft tissue hematoma is identified.IMPRESSIONNo acute intracranial abnormalities. Chronic age related involutional changes of the brain parenchyma and microangiopathic ischemic findings as described aboveMulti chamber paranasal sinus mucosal thickening consistent with chronic sinus disease.Radiation dose reduction was achieved through individualized adjustment of kVP and/or mA, through adaptive statistical iterative reconstruction, and/or through automated tube current modulation.Electronically signed by: JENS MCKAY (Feb 25, 2020 12:44:27)
--- NOTE | 2020-02-25 12:50 | RAD ---
HISTORYFELL THIS A.M, C/O LT SHOULDER PAINSTUDYThree views of the left shoulderCOMPARISONNoneFINDINGSThere is no fracture or subluxation or significant osteophyte formation.IMPRESSIONNegativeElectronically signed by: IKE PA (Feb 25, 2020 12:48:55)
--- NOTE | 2020-02-25 12:52 | CT ---
HISTORYFell this morning, complains of neck and mid back painSTUDYCT of the cervical spine without contrastCOMPARISONNo recent comparison studiesNoncontrast cervical spine CT is performed in the axial plane and is reconstructed with multiplanar imaging sequences.Radiation dose reduction was achieved through individualized adjustment of kVP and/or mA, through adaptive statistical iterative reconstruction, and/or through automated tube current modulation.FINDINGSThe included intracranial contents of the exam are unremarkable. No prevertebral soft tissue swelling or paraspinal fluid collections are demonstrated. Atherosclerotic calcifications are associated with the aortic arch and bilateral carotid tributaries. The partially imaged lung apices are clear. Biapical pleural parenchymal scarring is evident.The cranial cervical alignment is maintained. The occipital condyle is intact. Advanced osteopenia is noted. Cervical spinal alignment remains anatomic. There are no perched or dislocated facet joints. The vertebral body heights are adequately maintained. There is disc space narrowing with spondylosis and uncovertebral hypertrophy at C4-5, C5-6 and C6-7 levels, associated with bilateral neural foraminal compromise. Mild multilevel facet arthropathy is also observed. There is an acute fracture associated with the mid spinous process of the T1 vertebral body which is transversely oriented and mildly displaced.Incidental note is made of severe left temporomandibular joint osteoarthrosis.IMPRESSIONAcute spinous process fracture of the T1 vertebral body with mild displacement.Otherwise, no additional acute cervical spine fracture or posttraumatic subluxation identifiedDegenerative disc space narrowing, spondylosis and uncovertebral hypertrophy at C4-5, C5-6 and C6-7 with bilateral neural foraminal compromiseAdvanced osteopeniaOther chronic and age related degenerative findings as above.Electronically signed by: JENS MCKAY (Feb 25, 2020 12:51:12)
--- NOTE | 2020-02-25 13:04 | CT ---
HISTORYFell this morning, neck and mid back pain, hit head, shoulder painSTUDYCT of the thoracic spine without contrastCOMPARISONNo priorsNoncontrast CT of the thoracic spine is performed in the axial plane and is reconstructed with multiplanar reformats.Radiation dose reduction was achieved through individualized adjustment of kVP and/or mA, through adaptive statistical iterative reconstruction, and/or through automated tube current modulation.FINDINGSPostoperative changes of median sternotomy and coronary bypass surgery are observed. Atherosclerotic calcifications are demonstrated within the thoracic aorta and [place] coronary arteries. The thoracic aorta maintains a tortuous configuration and the ascending segment is ectatic and measures 4.2 cm while the descending segment measures approximately 3.3 cm. The aortic arch measures 3.4 cm. There is a trace, loculated right basilar pleural effusion with adjacent parenchymal scarring or atelectasis observed. The cardiac silhouette is mildly enlarged and there is evidence of a small hiatal hernia. Atherosclerotic calcifications are also demonstrated within the upper abdominal aorta and also involve the mesenteric tributaries. Aspects of both the thoracic aorta as well as the abdominal aorta demonstrate regions of low attenuation along the inner wall with displaced intimal calcifications. Dissection cannot be excluded on a noncontrast CT. The abdominal aorta is also dilated at 3 cm below the level of the renal arteries.Scoliotic curvature of the thoracic spine is demonstrated with evidence of multilevel endplate spondylosis. There is an acute fracture associated with the mid spinous process of the T1 vertebral body. This fracture is mildly displaced and transversely oriented. Advanced osteopenia is observed. There is minor height loss at T6 probably due to spondylosis with anterior wedging which is likely chronic and degenerative in nature. There is also mild height loss associated with the L2 vertebral body which also appears chronic. Multilevel endplate Schmorl's node defects are observed. The sagittal alignment of the thoracic spine is normal. No other acute fractures are demonstrated separately within the thoracic spine. The remaining vertebral bodies demonstrate normal height and no acute compression fractures are identified.Incidental nonobstructing upper pole right renal calculus is observed measuring approximately 5.6 mm.IMPRESSIONAn acute fracture involving the T1 spinous process with mild displacement.Aneurysmal dilatation of the ascending thoracic aorta, aortic arch and portions of the abdominal aorta with displaced intimal calcifications for which superimposed dissection cannot be excluded on a noncontrast CT. Further evaluation with a CTA of the chest and abdomen is recommended.Mild scoliotic curvature of the thoracic spine associated with multilevel endplate spondylosis.Chronic, partially loculated right basilar pleural effusion with adjacent parenchymal scarring or atelectasisOther chronic and incidental findings as detailed within the body of the report.Critical findings were resulted to Dr. Pinedo at 1 p.m. on 02/25/[address] MCKAY.Electronically signed by: JENS MCKAY (Feb 25, 2020 13:02:47)
[2020-02-25] MEDS ORDERED: NS 500 ML IV 500 ML IV ONE ×2 (13:05→13:06)
[2020-02-25] MEDS ORDERED: KLOR-CON ONE (14:00)
[2020-02-25] MEDS ORDERED: NS + KCL 40 MEQ/L 1,000 ML IV ONE (16:14)
--- NOTE | 2020-02-25 16:32 | CT ---
HISTORYDILATION OF ASCENDING AORTASTUDYCTA chest AND abdomenCOMPARISONCT THORACIC SPINE DATED 02/25/2020TECHNIQUEAXIAL IMAGES THROUGH THE CHEST AND ABDOMEN TO THE BIFURCATION WERE OBTAINED AFTER THE ADMINISTRATION OF 50 CC OF OMNIPAQUE 350. 3D MPR IMAGES WERE PERFORMED.CT scan was performed following ALARA (As low as Reasonably Achievable). CORONAL AND SAGITTAL IMAGES WERE ALSO PERFORMEDFINDINGSThe ascending aorta measures 4 x 4.1 centimeters. No pleural or pericardial effusions. There is normal enhancement of the great vessels with tortuosity of the subclavian arteries. There is extensive thrombous/plaque along the descending thoracic aorta and the abdominal aorta after the takeoff from the subclavian artery. Some areas demonstrate calcification suggestive of a subacute or old process. No hyperdensity seen on prior CT from 02/25/2020 to suggest acute hematoma or acute dissection. However small penetrating ulcer are not totally excluded. There is no evidence of filling defects in the pulmonary arteries, there are patchy atelectases in the right lower lobe with a small effusionNo significant mediastinal or axillary adenopathyThe liver and spleen and pancreas demonstrate no focal lesion lesions, gallbladder is contracted, no intra or extrahepatic biliary dilatation, no adrenal masses normal-sized kidneys without hydronephrosis, no abnormal dilated small bowel loops.These extensive calcifications at the level of the abdominal branches with 70 percent stenosis the celiac trunk and 70 percent stenosis at the level of the superior mesenteric artery, there is also severe stenoses at the origin of the left renal artery, the right renal artery demonstrates 50 percent narrowing. No free air or free fluid.Bone windows no acute compression fractures. Fracture of the spinous processes of [id number] suspicious for acute dissection of the thoracic and abdominal aorta. Extensive thrombus and plaque with some calcification and without hyperdensity to suggest acute changes. 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 Acute fracture of the T1 spinous processElectronically signed by: Rach Ortega (Feb 25, 2020 16:30:43)
[2020-02-25] MEDS: NS + KCL 40 MEQ/L 1,000 ML IV SCH (16:33)
[2020-02-25] MEDS ORDERED: NORCO 5/325 MG TAB PO PRN (18:32)
[2020-02-25] MEDS ORDERED: TYLENOL 325 MG TAB PO PRN (18:32)
[2020-02-25] MEDS: MEGACE PO SCH (20:20)
[2020-02-25] MEDS: ANTIVERT TAB 25 MG PO SCH (20:20)
[2020-02-25] MEDS: CRESTOR TAB 10 MG PO SCH (20:20)
[2020-02-26] MEDS: NS + KCL 40 MEQ/L 1,000 ML IV SCH ×3 (01:55→18:42)
[2020-02-26 06:53] LABS: BASOPHILS % (AUTO) 0.3 % (0.2-1.0); EOSINOPHILS # (AUTO) 0.9 x10^3/uL (0.0-0.2); HEMATOCRIT 37.5 % (42.0-54.0); HEMOGLOBIN 13.4 g/dL (13.5-18.0); LYMPHOCYTES # (AUTO) 0.6 X10^3/uL (1.3-2.9); LYMPHOCYTES % (AUTO) 10.6 % (21.0-51.0); MEAN CORPUSCULAR HEMOGLOBIN 33.5 pg (27.0-34.0); MEAN CORPUSCULAR HGB CONC 35.7 g/dL (33.0-35.0); MEAN CORPUSCULAR VOLUME 93.8 fL (80.0-100.0); MEAN PLATELET VOLUME 8.9 fL (7.4-11.0); MONOCYTES # (AUTO) 0.6 x10^3/uL (0.3-0.8); MONOCYTES % (AUTO) 10.3 % (0.0-13.0); NEUTROPHILS # (AUTO) 3.9 x10^3/uL (2.2-4.8); NEUTROPHILS % (AUTO) 64.8 % (42.0-75.0); PLATELET COUNT 154 X10^3/uL (150.0-450.0); RED CELL DISTRIBUTION WIDTH 13.4 % (11.6-16.5); WHITE BLOOD COUNT 6.1 X10^3/uL (3.6-10.0)
[2020-02-26 07:00] LABS: BLOOD UREA NITROGEN 18 mg/dL (7-18); CALCIUM 8.9 mg/dL (8.5-10.1); CARBON DIOXIDE 22.9 mmol/L (21-32); CHLORIDE 107 mmol/L (98-107); CREATININE 1.42 mg/dL (0.70-1.30); SODIUM 140 mmol/L (136-145); eGFR NON BLACK RACES 51 (>60)
[2020-02-26] MEDS ORDERED: POTASSIUM CHL 40 MEQ/NS 0.45% 500 ML IV PRN (08:47)
[2020-02-26] MEDS ORDERED: POTASSIUM CHLORIDE LIQ 20 MEQ UDC PO PRN (08:47)
[2020-02-26] MEDS ORDERED: POTASSIUM CHL 60 MEQ/NS 0.45% 500 ML IV PRN (08:47)
[2020-02-26] MEDS ORDERED: K-DUR TAB 20 MEQ PO PRN (08:47)
[2020-02-26] MEDS ORDERED: KLOR-CON PO PRN (08:47)
[2020-02-26] MEDS ORDERED: MICRO K EXTEN CAP 10 MEQ PO PRN (08:47)
[2020-02-26] MEDS ORDERED: K-RIDER 10 MEQ/NS 100 ML 10 MEQ/100 ML BAG IV PRN (08:47)
[2020-02-26] MEDS ORDERED: MAGNESIUM PO SCH (09:00)
[2020-02-26] MEDS ORDERED: CHOLECALCIFEROL 25 MCG PO SCH (09:00)
[2020-02-26] MEDS ORDERED: TRIAMTERENE HYDROCHLOROTHIAZID PO SCH (09:00)
[2020-02-26] MEDS ORDERED: CHOLECALCIFEROL PO SCH (09:00)
[2020-02-26] MEDS ORDERED: CALCIUM CARBONATE PO SCH (09:00)
[2020-02-26] MEDS: CARDIZEM CD 120 MG 24-HR PO SCH (09:47)
[2020-02-26] MEDS: VITAMIN D3 25 mcg (1,000 UNITS) PO SCH (09:48)
[2020-02-26] MEDS: OSCAL+D or CALTRATE+D PO SCH (09:48)
[2020-02-26] MEDS: SINGULAIR TAB 10 MG PO SCH (09:48)
[2020-02-26] MEDS: MAXZIDE 37.5/25 MG PO SCH (09:49)
[2020-02-26] MEDS: ANTIVERT TAB 25 MG PO SCH ×2 (09:49→20:58)
[2020-02-26] MEDS: MEGACE PO SCH ×2 (09:49→20:58)
[2020-02-26] MEDS: FLOMAX PO SCH (09:49)
[2020-02-26] MEDS: LOVENOX INJ 30 MG SYR SC SCH (09:50)
[2020-02-26] MEDS: EFFEXOR XR 150 MG CAP 24-HR PO SCH (09:50)
[2020-02-26] MEDS: ASPIRIN EC 81 MG PO SCH (09:50)
[2020-02-26 18:10] LABS: APPEARANCE,URINE CLEAR (CLEAR); BILIRUBIN,URINE NEGATIVE (NEGATIVE); BLOOD/HEMOGLOBIN,URINE NEGATIVE (NEGATIVE); COLOR,URINE YELLOW (YELLOW); GLUCOSE, URINE 1+ (NEGATIVE); KETONES,URINE NEGATIVE (NEGATIVE); LEUKOCYTE ESTERASE ,URINE NEGATIVE (NEGATIVE); NITRITES,URINE NEGATIVE (NEGATIVE); PROTEIN,URINE NEGATIVE (NEGATIVE); UROBILINOGEN,URINE NORMAL (NORMAL)
[2020-02-26] MEDS: CRESTOR TAB 10 MG PO SCH (20:58)
[2020-02-27] MEDS: NS + KCL 40 MEQ/L 1,000 ML IV SCH ×3 (02:00→23:00)
[2020-02-27 06:30] LABS: BASOPHILS % (AUTO) 0.3 % (0.2-1.0); EOSINOPHILS # (AUTO) 0.7 x10^3/uL (0.0-0.2); EOSINOPHILS % (AUTO) 13.4 % (0.9-2.9); HEMATOCRIT 36.2 % (42.0-54.0); HEMOGLOBIN 12.9 g/dL (13.5-18.0); LYMPHOCYTES # (AUTO) 0.5 X10^3/uL (1.3-2.9); LYMPHOCYTES % (AUTO) 9.4 % (21.0-51.0); MEAN CORPUSCULAR HEMOGLOBIN 33.4 pg (27.0-34.0); MEAN CORPUSCULAR HGB CONC 35.7 g/dL (33.0-35.0); MEAN CORPUSCULAR VOLUME 93.6 fL (80.0-100.0); MEAN PLATELET VOLUME 8.1 fL (7.4-11.0); MONOCYTES # (AUTO) 0.5 x10^3/uL (0.3-0.8); MONOCYTES % (AUTO) 8.9 % (0.0-13.0); NEUTROPHILS # (AUTO) 3.7 x10^3/uL (2.2-4.8); PLATELET COUNT 145 X10^3/uL (150.0-450.0); RED BLOOD COUNT 3.87 X10^6/uL (4.7-6.0); RED CELL DISTRIBUTION WIDTH 13.5 % (11.6-16.5); WHITE BLOOD COUNT 5.4 X10^3/uL (3.6-10.0)
[2020-02-27 06:45] LABS: ALANINE AMINOTRANSFERASE 20 Units/L (12-78); ALBUMIN 3.2 g/dL (3.4-5.0); ALKALINE PHOSPHATASE 51 Units/L (46-116); ASPARTATE AMINO TRANSFERASE 20 Units/L (15-37); BLOOD UREA NITROGEN 13 mg/dL (7-18); CALCIUM 9.1 mg/dL (8.5-10.1); CARBON DIOXIDE 22.9 mmol/L (21-32); CHLORIDE 107 mmol/L (98-107); COR CA(FOR HYPOALB) 9.7 mg/dL (8.5-10.1); COR NA(FOR HYPERGLY) 139 mmol/L (136-145); CREATININE 1.35 mg/dL (0.70-1.30); SODIUM 139 mmol/L (136-145); TOTAL PROTEIN 6.8 g/dL (6.4-8.2); eGFR NON BLACK RACES 54 (>60)
[2020-02-27] MEDS ORDERED: MEGACE PO SCH (09:00)
[2020-02-27] MEDS: ASPIRIN EC 81 MG PO SCH (09:16)
[2020-02-27] MEDS: ANTIVERT TAB 25 MG PO SCH ×2 (09:16→21:13)
[2020-02-27] MEDS: CARDIZEM CD 120 MG 24-HR PO SCH (09:17)
[2020-02-27] MEDS: FLOMAX PO SCH (09:17)
[2020-02-27] MEDS: EFFEXOR XR 150 MG CAP 24-HR PO SCH (09:17)
[2020-02-27] MEDS: MAXZIDE 37.5/25 MG PO SCH (09:18)
[2020-02-27] MEDS: LOVENOX INJ 30 MG SYR SC SCH (09:18)
[2020-02-27] MEDS: OSCAL+D or CALTRATE+D PO SCH (09:19)
[2020-02-27] MEDS: MEGACE PO SCH ×2 (09:19→21:12)
[2020-02-27] MEDS: SINGULAIR TAB 10 MG PO SCH (09:20)
[2020-02-27] MEDS: VITAMIN D3 25 mcg (1,000 UNITS) PO SCH (09:22)
[2020-02-27] MEDS ORDERED: NORVASC TAB 2.5 MG ONE (09:24)
[2020-02-27] MEDS ORDERED: LOPRESSOR TAB 50 MG ONE (09:25)
[2020-02-27] MEDS: LOPRESSOR TAB 50 MG PO SCH ×2 (09:27→21:12)
[2020-02-27] MEDS: NORVASC TAB 2.5 MG PO SCH (09:28)
[2020-02-27] MEDS: CRESTOR TAB 10 MG PO SCH (21:13)
[2020-02-28] MEDS: NS + KCL 40 MEQ/L 1,000 ML IV SCH ×2 (01:00→11:15)
[2020-02-28 05:51] LABS: BASOPHILS % (AUTO) 0.3 % (0.2-1.0); EOSINOPHILS # (AUTO) 0.9 x10^3/uL (0.0-0.2); EOSINOPHILS % (AUTO) 14.2 % (0.9-2.9); HEMATOCRIT 36.4 % (42.0-54.0); HEMOGLOBIN 12.9 g/dL (13.5-18.0); LYMPHOCYTES # (AUTO) 0.4 X10^3/uL (1.3-2.9); LYMPHOCYTES % (AUTO) 6.8 % (21.0-51.0); MEAN CORPUSCULAR HEMOGLOBIN 33.7 pg (27.0-34.0); MEAN CORPUSCULAR HGB CONC 35.5 g/dL (33.0-35.0); MEAN CORPUSCULAR VOLUME 94.9 fL (80.0-100.0); MEAN PLATELET VOLUME 8.6 fL (7.4-11.0); MONOCYTES # (AUTO) 0.5 x10^3/uL (0.3-0.8); MONOCYTES % (AUTO) 8.2 % (0.0-13.0); NEUTROPHILS # (AUTO) 4.4 x10^3/uL (2.2-4.8); NEUTROPHILS % (AUTO) 70.5 % (42.0-75.0); PLATELET COUNT 149 X10^3/uL (150.0-450.0); RED BLOOD COUNT 3.84 X10^6/uL (4.7-6.0); RED CELL DISTRIBUTION WIDTH 13.6 % (11.6-16.5); WHITE BLOOD COUNT 6.2 X10^3/uL (3.6-10.0)
[2020-02-28 06:09] LABS: ALBUMIN 3.1 g/dL (3.4-5.0); CALCIUM 8.7 mg/dL (8.5-10.1); COR CA(FOR HYPOALB) 9.4 mg/dL (8.5-10.1); CREATININE 1.47 mg/dL (0.70-1.30); TOTAL PROTEIN 6.6 g/dL (6.4-8.2)
[2020-02-28] MEDS ORDERED: NORVASC TAB 2.5 MG ONE (09:05)
[2020-02-28] MEDS: LOVENOX INJ 30 MG SYR SC SCH (09:17)
[2020-02-28] MEDS: FLOMAX PO SCH (09:18)
[2020-02-28] MEDS: VITAMIN D3 25 mcg (1,000 UNITS) PO SCH (09:18)
[2020-02-28] MEDS: ANTIVERT TAB 25 MG PO SCH (09:19)
[2020-02-28] MEDS: OSCAL+D or CALTRATE+D PO SCH (09:19)
[2020-02-28] MEDS: CARDIZEM CD 120 MG 24-HR PO SCH (09:20)
[2020-02-28] MEDS: MEGACE PO SCH (09:20)
[2020-02-28] MEDS: SINGULAIR TAB 10 MG PO SCH (09:20)
[2020-02-28] MEDS: EFFEXOR XR 150 MG CAP 24-HR PO SCH (09:20)
[2020-02-28] MEDS: MAXZIDE 37.5/25 MG PO SCH (09:20)
[2020-02-28] MEDS: ASPIRIN EC 81 MG PO SCH (09:21)
[2020-02-28] MEDS: NORVASC TAB 2.5 MG PO SCH (09:21)
[2020-02-28] MEDS: LOPRESSOR TAB 50 MG PO SCH (09:24)
[2020-02-28 09:58] VITALS: BP 168/86
== END 2020-02-28 11:05 | disposition home health service (06) ==
LOC: ER 11:51 → MED/SURG 11:51
PROVIDERS: ADMIT Internal Medicine; ATTEND Internal Medicine
DX: W18.39XA Other fall on same level, initial encounter; M54.2 Cervicalgia; S22.019A Unspecified fracture of first thoracic vertebra, initial encounter for closed fracture; M25.512 Pain in left shoulder; Y92.091 Bathroom in other non-institutional residence as the place of occurrence of the external cause; E87.6 Hypokalemia; M85.89 Other specified disorders of bone density and structure, multiple sites; R94.31 Abnormal electrocardiogram [ECG] [EKG]
CPT/HCPCS: 36415; 70450; 71275; 72125; 72128; 73030; 74175; 80048; 80053; 81003; 83735; 84132; 85025; 87040; 93005; 96365; 97110; 97166; 99284; A4222; G0378; J1650; J3490; J7040; S0179

== ENCOUNTER 2021-07-14 14:17 | Observation (INO) ==
[2021-07-14 14:42] VITALS: BMI 24.3
[2021-07-14 15:21] LABS: BASOPHILS # (AUTO) 0.1 X10^3/uL (0.0-0.1); BASOPHILS % (AUTO) 1.2 % (0.2-1.0); EOSINOPHILS # (AUTO) 0.5 x10^3/uL (0.0-0.2); EOSINOPHILS % (AUTO) 8.3 % (0.9-2.9); HEMOGLOBIN 14.1 g/dL (13.5-18.0); LYMPHOCYTES # (AUTO) 0.3 X10^3/uL (1.3-2.9); LYMPHOCYTES % (AUTO) 4.6 % (21.0-51.0); MEAN CORPUSCULAR HEMOGLOBIN 34.1 pg (27.0-34.0); MEAN CORPUSCULAR VOLUME 94.7 fL (80.0-100.0); MEAN PLATELET VOLUME 8.2 fL (7.4-11.0); MONOCYTES # (AUTO) 0.4 x10^3/uL (0.3-0.8); MONOCYTES % (AUTO) 6.4 % (0.0-13.0); NEUTROPHILS # (AUTO) 5.2 x10^3/uL (2.2-4.8); NEUTROPHILS % (AUTO) 79.5 % (42.0-75.0); PLATELET COUNT 181 X10^3/uL (150.0-450.0); RED BLOOD COUNT 4.12 X10^6/uL (4.7-6.0); RED CELL DISTRIBUTION WIDTH 13.7 % (11.6-16.5); WHITE BLOOD COUNT 6.5 X10^3/uL (3.6-10.0)
--- NOTE | 2021-07-14 15:35 | CT ---
PROCEDURE: CT Head without Contrast .HISTORY: Syncopal episode.TECHNIQUE: Axial images were performed through the head without the administration of IV contrast with multiplanar reformations . Dose reduction techniques including Automated Exposure Control (AEC) and adjustment of mA and kV were utilized .COMPARISON: 09/25/2020.TECHNICAL QUALITY: Satisfactory .FINDINGS:Brain shows no mass, hemorrhage, or acute stroke.Mild periventricular old micro ischemic changes. Moderate diffuse cerebral and cerebellar atrophy.Ventricles are normal size for patient's age.No acute skull or scalp abnormality.Visualized sinuses and mastoids are clear.IMPRESSION:1. No acute intracranial abnormality.2. Senescent changes.Electronically signed by: Amol Swanson (Jul 14, 2021 15:33:19)
--- NOTE | 2021-07-14 15:45 | RAD ---
HISTORYfall, syncope CAD, HTN, CHF, BOWEL, CABGSTUDYCHEST, 1 VIEWCOMPARISONOne-view chest September 20, 2019.FINDINGSThe lungs are adequately expanded. The airway is normal. The lungs are clear without infiltrates or effusions.No pneumothorax.No pleural effusion.No consolidation.Cardiomediastinal silhouette is normal in size and position. There are sternotomy wires and surgical clips from prior CIS heart surgery.Osseous structures and soft tissues are unremarkable.IMPRESSIONPostsurgical chest but no acute cardiopulmonary findings and no change from prior film September 20, 2019..Electronically signed by: ABDOULAYE MELO (Jul 14, 2021 15:43:28)
--- NOTE | 2021-07-14 15:50 | RAD ---
HISTORYfall, left knee pains CAD, HTN, CHF, BOWEL, CABGSTUDYKNEE, AP/LAT LEFTCOMPARISONNoneFINDINGSNo evidence for acute cortical disruption or dislocation. There is moderate joint space narrowing medial compartment of the left knee. There is also mild hypertrophic lipping. The lateral and patellofemoral compartment are normal. The lateral radiograph fails to demonstrate significant joint effusion. Patellofemoral compartment is normal in its appearance.IMPRESSIONNegative exam other than moderate osteoarthritic narrowing medial compartment of the left knee.Electronically signed by: ABDOULAYE MELO (Jul 14, 2021 15:48:23)
[2021-07-14 15:53] LABS: ALANINE AMINOTRANSFERASE 22 Units/L (12-78); ALBUMIN 3.5 g/dL (3.4-5.0); ALKALINE PHOSPHATASE 65 Units/L (46-116); ASPARTATE AMINO TRANSFERASE 18 Units/L (15-37); BLOOD UREA NITROGEN 42 mg/dL (7-18); CALCIUM 10.1 mg/dL (8.5-10.1); CARBON DIOXIDE 26.8 mmol/L (21-32); CHLORIDE 98 mmol/L (98-107); CKMB % 3.6 % (<4); COR NA(FOR HYPERGLY) 140 mmol/L (136-145); CREATINE KINASE 28 Units/L (39-308); CREATINE KINASE MB < 1.0 ng/mL (0-4.0); CREATININE 3.15 mg/dL (0.70-1.30); SODIUM 136 mmol/L (136-145); TOTAL PROTEIN 7.6 g/dL (6.4-8.2); TROPONIN I < 0.02 ng/mL (0-1.5); eGFR NON BLACK RACES 20 (>60)
--- NOTE | 2021-07-14 15:53 | DR.EXTPAIN ---
HPI Time seen Time Seen by Provider: 07/14/21 15:47 PCP Primary Care Physician: Azeem HPI Comment HPI Comment: Pt accompanied by daughter .According to her pt has had several fall over the last few weeks .he felt dizzy this morning and then fell. EMS called and patient was brought to ER .His blood sugar when checked by EMS was over 300 .pt indicates he feels wek and tired with decreased appetite Complaint/Symptoms Chief Complaint:: Left hip pain post dizziness with fall COVID-19 Coronavirus risk:travel/contact w/high risk person: No Has patient experienced Coronavirus symptoms: No Nurses notes reviewed Nurses Notes Review: Yes Source History Provided: Patient, Family Member and EMS Mode of arrival Mode of Arrival: EMS Timing Onset of Chief Complaint: 07/14/21 Context History of: Arthritis Associated signs and symptoms Associated Signs and Symptoms: Weakness PMH PMH Past Medical History: Yes Past Medical History: Diabetes and Hypertension Past Surgical History: No Surgical History: Unknown Family History History of Family Medical Conditions: No (unknown) Family Medical History: [place], Coronary Artery Disease, Heart Failure and Hypertension Social History Does patient currently use any type of tobacco product: No Do you use any recreational Drugs:: No Lives With: Alone Lives Where: Home Travel Risk Coronavirus risk:travel/contact w/high risk person: No Has patient experienced Coronavirus symptoms: No Infectious screening Have you traveled outside the country in the last 6 months?: No Isolation: Standard ROS Review of Systems Constitutional: Malaise and Fatigue Eyes: No Symptoms Reported ENTM: No Symptoms Reported Cardiovascular: No Symptoms Reported and See HPI Gastrointestinal/Abdominal: No Symptoms Reported Genitourinary: No Symptoms Reported Neurological: Dizziness Musculoskeletal: Joint Pain Integumentary: No Symptoms Reported Hematologic/Lymphatic: No Symptoms Reported PE Vital Signs Vitals: Temperature 98.1 F Pulse Rate 84 Respiratory Rate 17 Blood Pressure [Left Arm] 161/83 Blood Pressure 138/93 O2 Sat by Pulse Oximetry 96 General Limitations: No Limitations General Appearance: Alert and Lethargic Head Head Exam: Normal Inspection and Atraumatic Eyes Eye exam: PERRL and EOMI ENT ENT Exam: Normal Exam and Mucous Membranes Dry Neck Neck Exam: Normal Inspection and Full ROM Chest Chest Inspection: Normal Inspection and Symmetric Chest Wall Rise Respiratory Respiratory Exam: Normal Lung Sounds Bilat Respiratory Exam: Bilateral: Clear to Auscultation Cardiovascular Cardiovascular Exam: +S1 and +S2 Abdominal Exam Abdominal Exam: Normal Bowel Sounds and Soft Extremities Extremities Exam: Full ROM and Other (left knee tendernes no ligament laxity ) Lower Extremities Hip/Pelvis Exam: Normal Inspection Upper Leg Exam: Normal Inspection Lower Leg Exam: Normal Inspection Ankle Exam: Normal Inspection Foot/Toe Exam: Normal Inspection Neurovascular/Tendon Exam: Normal Capillary Refill Back Back Exam: Normal Inspection Neurological Neurological Exam: Alert Psychiatric Psychiatric Exam: Flat Affect Skin Skin Exam: Normal Color MDM Differential Diagnosis Differential Diagnosis: Other (fall,fatigue,malaise,dizziness ,hx of fdementia ,chronic systolic CHF ) COURSE Treatment Treatment: labs, ekg NEW ONSET DM cardiac enzymes neg Dimer pos may be sec to chronic CHF unable to perform CTA due to low GFR and ser cr of 0ver3. Will hydrate monitor cardiac enzymes and drug and alcohol counselor blood sugra supplement potassium stop lasix and dyazide spoke with Dr Gann agreed to admit patient for further management ROR Labs Reviewed Laboratory Results Reviewed?: Yes Result Diagrams: 07/14/21 14:50 07/14/21 14:50 Laboratory: WBC 6.5 X10^3/uL (3.6-10.0) 07/14/21 14:50 RBC 4.12 X10^6/uL (4.7-6.0) L 07/14/21 14:50 Hgb 14.1 g/dL (13.5-18.0) 07/14/21 14:50 Hct 39.0 % (42.0-54.0) L 07/14/21 14:50 MCV 94.7 fL (80.0-100.0) 07/14/21 14:50 MCH 34.1 pg (27.0-34.0) H 07/14/21 14:50 MCHC 36.0 g/dL (33.0-35.0) H 07/14/21 14:50 RDW 13.7 % (11.6-16.5) 07/14/21 14:50 Plt Count 181 X10^3/uL (150.0-450.0) 07/14/21 14:50 MPV 8.2 fL (7.4-11.0) 07/14/21 14:50 Neut % (Auto) 79.5 % (42.0-75.0) H 07/14/21 14:50 Lymph % (Auto) 4.6 % (21.0-51.0) L 07/14/21 14:50 [place] % (Auto) 6.4 % (0.0-13.0) 07/14/21 14:50 Eos % (Auto) 8.3 % (0.9-2.9) H 07/14/21 14:50 Baso % (Auto) 1.2 % (0.2-1.0) H 07/14/21 14:50 Neut # (Auto) 5.2 x10^3/uL (2.2-4.8) H 07/14/21 14:50 Lymph # (Auto) 0.3 X10^3/uL (1.3-2.9) L 07/14/21 14:50 [place] # (Auto) 0.4 x10^3/uL (0.3-0.8) 07/14/21 14:50 Eos # (Auto) 0.5 x10^3/uL (0.0-0.2) H 07/14/21 14:50 Baso # (Auto) 0.1 X10^3/uL (0.0-0.1) 07/14/21 14:50 Absolute Nucleated RBC 0.0 /100WBC 07/14/21 14:50 PT 13.9 SECONDS (11.8-14.3) 07/14/21 14:50 INR Target Range - 07/14/21 14:50 INR 1.12 (0.8-1.3) 07/14/21 14:50 APTT 33.4 SECONDS (22.9-36.5) 07/14/21 14:50 PTT Comment - 07/14/21 14:50 D-Dimer 2.70 ug/ml (0.0-0.57) H* 07/14/21 14:50 Sodium 136 mmol/L (136-145) 07/14/21 14:50 Corrected Sodium 140 mmol/L (136-145) 07/14/21 14:50 Potassium 2.6 mmol/L (3.5-5.1) L* 07/14/21 14:50 Chloride 98 mmol/L (98-107) 07/14/21 14:50 Carbon Dioxide 26.8 mmol/L (21-32) 07/14/21 14:50 BUN 42 mg/dL (7-18) H 07/14/21 14:50 Creatinine 3.15 mg/dL (0.70-1.30) H 07/14/21 14:50 Est GFR (MDRD) Af Amer 25 (>60) L 07/14/21 14:50 Est GFR (MDRD) Non-Af 20 (>60) L 07/14/21 14:50 Glucose 247 mg/dL (65-99) H 07/14/21 14:50 Hemoglobin A1c 6.8 % 07/14/21 14:50 Calcium 10.1 mg/dL (8.5-10.1) 07/14/21 14:50 Corrected Calcium TNP 07/14/21 14:50 Magnesium 2.5 mg/dL (1.7-2.9) 07/14/21 14:50 Total Bilirubin 0.90 mg/dL (0.2-1.0) 07/14/21 14:50 AST 18 Units/L (15-37) 07/14/21 14:50 ALT 22 Units/L (12-78) 07/14/21 14:50 Alkaline Phosphatase 65 Units/L (46-116) 07/14/21 14:50 Creatine Kinase 28 Units/L (39-308) L 07/14/21 14:50 CK-MB (CK-2) < 1.0 ng/mL (0-4.0) 07/14/21 14:50 CK/CKMB % Calc 3.6 % (<4) 07/14/21 14:50 Troponin I < 0.02 ng/mL (0-1.5) 07/14/21 14:50 Total Protein 7.6 g/dL (6.4-8.2) 07/14/21 14:50 Albumin 3.5 g/dL (3.4-5.0) 07/14/21 14:50 Globulin 4.1 g/dL (2.5-4.5) 07/14/21 14:50 Albumin/Globulin Ratio 0.9 Ratio (1.1-2.1) L 07/14/21 14:50 Other Results Comments: non specific ST changes Opioid Opioid Risk Tool Age (Ankur box if 16-45): No History of Preadolescent Sexual Abuse: No Total: 0 Total Score Risk Category: Low Risk Copyright: [facility] predicting aberrant behaviors Diagnosis Discharge Problem: Dehydration, Acute hypokalemia, Chronic systolic (congestive) heart failure, New onset type 2 diabetes mellitus, Dementia Acute renal failure Qualifiers: Acute renal failure type: unspecified Qualified Code(s): N17.9 - Acute kidney failure, unspecified Instructions Forms: [facility] Patient Portal Social Distancing
--- NOTE | 2021-07-14 15:54 | RAD ---
HISTORYfall, left hip pains CAD, HTN, CHF, BOWEL, CABGSTUDYHIP, LEFTCOMPARISONCT pelvis September 14, 2020FINDINGSA single frontal view of the pelvis demonstrates the pelvic ring to be intact. There are old healed fractures of the right superior pubic ramus and right inferior pubic ramus that were present on the prior CT September 14, 2020. No evidence for acute cortical disruption or dislocation of the hip can be observed. Frog leg views of the hip fails to demonstrate evidence for fracture or significant joint abnormality.IMPRESSIONNegative exam for acute fracture at the left hip or pubic bones.Old healed fractures are seen at the right superior pubic ramus and right inferior pubic ramus.Electronically signed by: ABDOULAYE MELO (Jul 14, 2021 15:52:09)
[2021-07-14] MEDS ORDERED: K-DUR TAB 20 MEQ PO ONE ×3 (16:24→21:00)
[2021-07-14] MEDS: NS 1000 ML 1,000 ML IV SCH (18:15)
[2021-07-14] MEDS: LOPRESSOR TAB 50 MG PO SCH (20:39)
[2021-07-14] MEDS: CRESTOR TAB 10 MG PO SCH (20:39)
[2021-07-14 21:07] LABS: CKMB % 3.6 % (<4); CREATINE KINASE 28 Units/L (39-308); TROPONIN I < 0.02 ng/mL (0-1.5)
[2021-07-15 03:10] LABS: CKMB % 3.7 % (<4); CREATINE KINASE 27 Units/L (39-308); TROPONIN I < 0.02 ng/mL (0-1.5)
[2021-07-15] MEDS: NS 1000 ML 1,000 ML IV SCH ×3 (06:03→23:13)
[2021-07-15 06:43] LABS: BASOPHILS % (AUTO) 0.4 % (0.2-1.0); EOSINOPHILS # (AUTO) 0.6 x10^3/uL (0.0-0.2); EOSINOPHILS % (AUTO) 10.6 % (0.9-2.9); HEMATOCRIT 35.6 % (42.0-54.0); LYMPHOCYTES # (AUTO) 0.6 X10^3/uL (1.3-2.9); LYMPHOCYTES % (AUTO) 10.6 % (21.0-51.0); MEAN CORPUSCULAR HEMOGLOBIN 34.2 pg (27.0-34.0); MEAN CORPUSCULAR HGB CONC 36.4 g/dL (33.0-35.0); MEAN CORPUSCULAR VOLUME 94.1 fL (80.0-100.0); MEAN PLATELET VOLUME 7.8 fL (7.4-11.0); MONOCYTES # (AUTO) 0.6 x10^3/uL (0.3-0.8); MONOCYTES % (AUTO) 10.3 % (0.0-13.0); NEUTROPHILS # (AUTO) 3.9 x10^3/uL (2.2-4.8); NEUTROPHILS % (AUTO) 68.1 % (42.0-75.0); PLATELET COUNT 180 X10^3/uL (150.0-450.0); RED BLOOD COUNT 3.79 X10^6/uL (4.7-6.0); RED CELL DISTRIBUTION WIDTH 14.1 % (11.6-16.5); WHITE BLOOD COUNT 5.7 X10^3/uL (3.6-10.0)
[2021-07-15 07:05] LABS: ALANINE AMINOTRANSFERASE 19 Units/L (12-78); ALBUMIN 3.1 g/dL (3.4-5.0); ALKALINE PHOSPHATASE 54 Units/L (46-116); ASPARTATE AMINO TRANSFERASE 17 Units/L (15-37); BLOOD UREA NITROGEN 34 mg/dL (7-18); CALCIUM 9.2 mg/dL (8.5-10.1); CARBON DIOXIDE 25.6 mmol/L (21-32); CHLORIDE 106 mmol/L (98-107); COR CA(FOR HYPOALB) 9.9 mg/dL (8.5-10.1); CREATININE 2.39 mg/dL (0.70-1.30); SODIUM 140 mmol/L (136-145); TOTAL PROTEIN 6.7 g/dL (6.4-8.2); eGFR NON BLACK RACES 28 (>60)
[2021-07-15] MEDS: LOPRESSOR TAB 50 MG PO SCH ×2 (08:18→22:02)
--- NOTE | 2021-07-15 14:43 | DR.H&P ---
H&P - History & Physical for Day of: H&P Date: 07/14/21 - Chief Complaint Chief Complaint: LEFT KNEE PAIN, LEFT HIP PAIN, DIZZINESS, DECREASED APPETITE, WEAKNESS, FREQUENT FALLS - History of Present Illness History of Present Illness: IS A 80 YEAR OLD PATIENT OF OURS. HE REPORTED TO THE ER WITH COMPLAINTS OF FREQUENT FALLS AT HOME OVER THE PAST TWO WEEKS. HE REPORTS LEFT KNEE PAIN, LEFT HIP PAIN, DIZZINESS, DECREASED APPETITE, AND WEAKNESS. HE LIVES AT HOME ALONE. EMS REPORTS THAT HIS BLOOD GLUCOSE LEVEL WAS GREATER THAN 300. PATIENT DOES NOT REPORT A HISTORY OF DIABETES. HIS PMH INCLUDES: Arthritis, CHF, Coronary Artery Disease, Depression, Dyslipidemia, GERD, Hypertension, and CABG. ON ARRIVAL TO THE ER, VITALS WERE 98.1-93-16-96%-138/93. LABS WERE OBTAINED. ABNORMAL LAB VALUES INCLUDE THE FOLLOWING: RBC 4.12, HCT 39.0, D-DIMER 2.70, POTASSIUM 2.6, BUN 42, CREATININE 3.15, GLUCOSE 247, HA1C 6.8, CREATINE KINASE 28. TROPONIN WAS NORMAL. COVID, INFLUENZA, AND RSV NEGATIVE. A BRAIN CT WAS OBTAINED AND REVEALED: 1. No acute intracranial abnormality.2. Senescent changes. CHEST XRAY OBTAINED AND REVEALED: Postsurgical chest but no acute cardiopulmonary findings and no change from prior film September 20, 2019. LEFT KNEE XRAY OBTAINED AND REVEALED: Negative exam other than moderate osteoarthritic narrowing medial compartment of the left knee. A LEFT HIP XRAY WAS OBTAINED AND REVEALED: Negative exam for acute fract ure at the left hip or pubic bones. Old healed fractures are seen at the right superior pubic ramus and right inferior pubic ramus. AN EKG WAS OBTAINED AND REVEALED: SINUS RHYTHM WITH HR 91. IN THE ER, HE WAS GIVEN K-DUR 40MEQ PO X 1 DOSE. HE WAS ADMITTED TO THE HOSPITAL FOR FURTHER EVALUATION AND TREATMENT OF ACUTE RENAL FAILURE, HYPOKALEMIA, DEHYDRATION, NEW ONSET DM. HE WAS STARTED ON NORMAL SALINE AT 80 ML/HR, METOPROLOL 100MG PO BID, ROSUVASTATIN 20MG PO HS, COLACE 100MG PO HS, OTBS ACHS. WE WILL REVIEW HIS OTHER HOME MEDICATIONS WHEN THEY ARE VERIFIED. OTHERWISE, WE WILL FOLLOW UP WITH AM LABS AND CONTINUE TO MONITOR. TIME SPENT ON CLINICAL ASSESSMENT, REVIEWING LABS AND IMAGING, DECISION MAKING, AND DOCUMENTATION GREATER THAN 75 MINUTES. - Past Medical History Past Medical History: Arthritis, CHF, Coronary Artery Disease, Depression, Dyslipidemia, GERD, Hypertension - Past Surgical History Surgical History: CABG/Valve Surgery, Other - Family History Family Medical History: [place], Coronary Artery Disease, Heart Failure, Hypertension - Social History Does patient currently use any type of tobacco product: No Have you used tobacco products in the last 12 months: No Type of Tobacco Use: None Does any household member use tobacco: No Alcohol Use: None Drug Use: None - Medications Home Medications: Penicillins Allergy (Verified 02/25/20 11:52) CONTINUE taking the following medications aspirin 81 mg PO ONCE 07/14/21 [History] donepezil [Aricept] 5 mg PO DAILY 07/14/21 [History] duloxetine [Cymbalta] 60 mg PO DAILY 07/14/21 [History] furosemide [Lasix] 20 mg PO BID 07/14/21 [History] meclizine 25 mg PO HS 07/14/21 [History] megestrol 40 mg PO BID 07/14/21 [History] metoprolol tartrate 100 mg PO BID 07/14/21 [History] mirabegron [Myrbetriq] 50 mg PO ONCE 07/14/21 [History] triamterene-hydrochlorothiazid [Dyazide] 1 cap PO QAM 07/14/21 [History] - Review of Systems Constitutional: Weakness, Malaise Eyes: No Symptoms Reported ENT: No Symptoms Reported Respiratory: No Symptoms Reported Cardiovascular: Light Headedness Gastrointestinal: No Symptoms Reported Genitourinary: No Symptoms Reported Musculoskeletal: See HPI, Other (LEFT KNEE PAIN, LEFT HIP PAIN ) Skin: No Symptoms Reported Neurological: Weakness - Physical Exam Vital Signs: Temperature 98.8 F Pulse Rate [Right Radial] 53 Pulse Rate 84 Respiratory Rate 20 Blood Pressure [Left Arm] 158/85 Blood Pressure 138/93 O2 Sat by Pulse Oximetry 97 Oriented: Normal Eyes: Normal Ear: Normal Nose: Normal Throat: Normal Respiratory: Diminished Throughout Cardiovascular: Normal : Normal Auscultation: Bowel Sounds: Normal Palpation: Normal Tenderness: Normal Skin: Normal Musculoskeletal: Left, Hip, Knee, Tender Psychiatric: Normal Mood Description: Calm Affect: Normal Speech Pattern: Clear - Assessment/Plan (1) Acute renal failure Qualifiers: Acute renal failure type: unspecified Qualified Code(s): N17.9 - Acute kidney failure, unspecified Status: Acute Plan: ADMIT, NORMAL SALINE AT 80 ML/HR, METOPROLOL 100MG PO BID, ROSUVASTATIN 20MG PO HS, COLACE 100MG PO HS, OTBS ACHS. (2) Dehydration Status: Acute (3) Acute hypokalemia Status: Acute (4) New onset type 2 diabetes mellitus Status: Acute (5) Frequent falls Status: Acute - Allergies Allergies/Adverse Reactions: Allergies Allergy/AdvReac Type Severity Reaction Status Date / Time Penicillins Allergy Verified 02/25/20 11:52
[2021-07-15] MEDS ORDERED: HumuLIN R SC PRN (20:00)
[2021-07-15] MEDS ORDERED: COLACE CAP 100 MG PO SCH (21:00)
[2021-07-15] MEDS: CRESTOR TAB 10 MG PO SCH (22:02)
[2021-07-16 05:18] LABS: BASOPHILS % (AUTO) 0.5 % (0.2-1.0); EOSINOPHILS # (AUTO) 0.7 x10^3/uL (0.0-0.2); EOSINOPHILS % (AUTO) 12.2 % (0.9-2.9); HEMATOCRIT 35.3 % (42.0-54.0); HEMOGLOBIN 12.7 g/dL (13.5-18.0); LYMPHOCYTES # (AUTO) 0.6 X10^3/uL (1.3-2.9); LYMPHOCYTES % (AUTO) 10.2 % (21.0-51.0); MEAN CORPUSCULAR HEMOGLOBIN 34.6 pg (27.0-34.0); MEAN CORPUSCULAR HGB CONC 36.1 g/dL (33.0-35.0); MEAN CORPUSCULAR VOLUME 95.9 fL (80.0-100.0); MEAN PLATELET VOLUME 8.3 fL (7.4-11.0); MONOCYTES # (AUTO) 0.6 x10^3/uL (0.3-0.8); MONOCYTES % (AUTO) 9.2 % (0.0-13.0); NEUTROPHILS # (AUTO) 4.1 x10^3/uL (2.2-4.8); NEUTROPHILS % (AUTO) 67.9 % (42.0-75.0); PLATELET COUNT 176 X10^3/uL (150.0-450.0); RED BLOOD COUNT 3.68 X10^6/uL (4.7-6.0); RED CELL DISTRIBUTION WIDTH 13.8 % (11.6-16.5)
[2021-07-16 05:27] LABS: ALBUMIN 2.8 g/dL (3.4-5.0); CALCIUM 8.5 mg/dL (8.5-10.1); CARBON DIOXIDE 23.1 mmol/L (21-32); COR CA(FOR HYPOALB) 9.5 mg/dL (8.5-10.1); CREATININE 1.98 mg/dL (0.70-1.30); TOTAL PROTEIN 6.2 g/dL (6.4-8.2)
[2021-07-16] MEDS ORDERED: POTASSIUM CHL 60 MEQ/NS 0.45% 500 ML IV PRN (05:48)
[2021-07-16] MEDS ORDERED: KLOR-CON PO PRN (05:48)
[2021-07-16] MEDS ORDERED: K-DUR TAB 20 MEQ PO PRN (05:48)
[2021-07-16] MEDS ORDERED: POTASSIUM CHLORIDE LIQ 20 MEQ UDC PO PRN (05:48)
[2021-07-16] MEDS ORDERED: POTASSIUM CHL 40 MEQ/NS 0.45% 500 ML IV PRN (05:48)
[2021-07-16] MEDS ORDERED: MICRO K EXTEN CAP 10 MEQ PO PRN (05:48)
[2021-07-16] MEDS ORDERED: K-RIDER 10 MEQ/NS 100 ML 10 MEQ/100 ML BAG IV PRN (05:48)
[2021-07-16] MEDS: LOPRESSOR TAB 50 MG PO SCH (08:36)
[2021-07-16] MEDS ORDERED: MIRABEGRON 50 MG PO SCH (08:45)
[2021-07-16] MEDS ORDERED: ASPIRIN EC 81 MG PO NR (08:45)
[2021-07-16] MEDS ORDERED: ARICEPT TAB 5 MG PO SCH (09:00)
[2021-07-16] MEDS ORDERED: CYMBALTA PO SCH (09:00)
[2021-07-16] MEDS ORDERED: SINGULAIR TAB 10 MG PO SCH (09:00)
[2021-07-16] MEDS ORDERED: NORVASC TAB 2.5 MG PO SCH (09:00)
[2021-07-16] MEDS ORDERED: MEGACE PO SCH (09:00)
[2021-07-16 10:49] VITALS: BP 168/92
[2021-07-16] MEDS: NS 1000 ML 1,000 ML IV SCH (10:50)
[2021-07-16] MEDS ORDERED: NORVASC TAB 2.5 MG ONE (10:54)
== END 2021-07-16 11:20 | disposition home health service (06) ==
LOC: ER 14:17 → INTOOBSV 17:03 → MED/SURG 17:03
PROVIDERS: ADMIT Internal Medicine; ATTEND Internal Medicine
DX: Z20.822 Contact with and (suspected) exposure to COVID-19; I25.10 Atherosclerotic heart disease of native coronary artery without angina pectoris; K21.9 Gastro-esophageal reflux disease without esophagitis; R55 Syncope and collapse; R29.6 Repeated falls; W18.39XA Other fall on same level, initial encounter; E86.0 Dehydration; E78.2 Mixed hyperlipidemia; M25.562 Pain in left knee; M25.552 Pain in left hip; R94.31 Abnormal electrocardiogram [ECG] [EKG]; E87.6 Hypokalemia; E11.65 Type 2 diabetes mellitus with hyperglycemia; I10 Essential (primary) hypertension; N17.8 Other acute kidney failure

== ENCOUNTER 2022-02-24 22:38 | Observation (INO) ==
--- NOTE | 2022-02-24 22:55 | DR.EXTPAIN ---
HPI Time seen Time Seen by Provider: 02/24/22 22:50 HPI Comment HPI Comment: An 81 y/o male presenting with c/o Lt. lower rib pain onset just before he called the EMS tonight. He was trying to get out of bed, and hit his chest on the edge of his hospital bed. It hurts to inhale deeply. He has no SOB or cough. Nurses notes reviewed Nurses Notes Review: Yes Source History Provided: Patient Mode of arrival Mode of Arrival: EMS Context History of: None Associated signs and symptoms Associated Signs and Symptoms: None PMH PMH Past Medical History: Arthritis, CHF, Coronary Artery Disease, Depression, Dyslipidemia, GERD and Hypertension Past Surgical History: No Surgical History: CABG/Valve Surgery and Other Family History Family Medical History: [place], Coronary Artery Disease, Heart Failure and Hypertension Social History Do you use any recreational Drugs:: No ROS Review of Systems Constitutional: No Symptoms Reported Eyes: No Symptoms Reported ENTM: No Symptoms Reported Respiratoy: No Symptoms Reported Cardiovascular: No Symptoms Reported Gastrointestinal/Abdominal: No Symptoms Reported Genitourinary: No Symptoms Reported Neurological: No Symptoms Reported Musculoskeletal: Rib(s) (pain, Lt.) Integumentary: No Symptoms Reported Hematologic/Lymphatic: No Symptoms Reported Endocrine: No Symptoms Reported Psychiatric: No Symptoms Reported PE Vital Signs Vitals: Temperature 98.1 F Pulse Rate 74 Respiratory Rate 18 Blood Pressure [Left Arm] 168/92 Blood Pressure 178/89 O2 Sat by Pulse Oximetry 92 General Limitations: No Limitations General Appearance: Alert and In No Apparent Distress Head Head Exam: Normal Inspection, Atraumatic and Normocephalic Eyes Eye exam: Normal Appearance and EOMI ENT ENT Exam: Normal Exam, Normal Oropharynx, Normal External Ear Exam, Mucous Membranes Moist and TM's Normal Bilaterally Neck Neck Exam: Normal Inspection, Full ROM and Trachea Midline Chest Chest Inspection: Normal Inspection, Symmetric Chest Wall Rise and Tenderness (Lt. lower ribs in mid-axillary line ) Respiratory Respiratory Exam: Normal Lung Sounds Bilat Cardiovascular Cardiovascular Exam: Regular Rate, Normal Rhythm, Normal Heart Sounds, +S1 and +S2 Abdominal Exam Abdominal Exam: Normal Inspection, Normal Bowel Sounds and Soft Extremities Extremities Exam: Normal Inspection and Full ROM Back Back Exam: Normal Inspection and Full ROM Neurological Neurological Exam: Alert and Oriented X3 Psychiatric Psychiatric Exam: Normal Affect and Normal Mood Skin Skin Exam: Intact COURSE Treatment Treatment: He was sent home with a script for Ultram 50 mg tabs, directions to take 1 tab p.o. TID/prn. Reevaluation 1st: Unchanged Education/Counseling Education/Counseling: Patient, Family, Education and Counseling Educated On: Treatment, Diagnosis, Prognosis and Needs for Follow Up ROR XRAY XRAY Interpreted by: Self X-ray Results: Lt. rib series: THere is no pneumothorax or rib fracture(s) noted. The cardiac silhouette is normal. He is s/p anterior thoracotomy. Radiologist report is pending. Opioid Opioid Risk Tool Age (Ankur box if 16-45): No History of Preadolescent Sexual Abuse: No Total: 0 Total Score Risk Category: Low Risk Copyright: [facility] predicting aberrant behaviors Diagnosis Discharge Problem: Contusion of rib on left side Qualifiers: Encounter type: initial encounter Qualified Code(s): S20.212A - Contusion of left front wall of thorax, initial encounter Instructions Instructions: Rib Contusion Forms: Precautions for COVID19 [facility] Patient Portal Social Distancing
[2022-02-24] MEDS ORDERED: XYLOCAINE 1 % (PLAIN) ONE (23:18)
[2022-02-24] MEDS ORDERED: ROCEPHIN VIAL 1 GRAM ONE (23:18)
[2022-02-25] MEDS ORDERED: ULTRAM PO ONE (00:10)
[2022-02-25] MEDS ORDERED: ULTRAM ONE (00:16)
--- NOTE | 2022-02-25 01:56 | RAD ---
HISTORYT IN ED VIA STRETCHER PER [facility] EMS WITH C/O OF FALLING AGAINST THE CORNER OF HIS HOSPITAL BED HITTING LEFT UPPER RIB AREA. PT C/O PAIN THAT AREA AND LEFT UPPER ABD. ARTHRITIS, CHF, CAD, HTN SX: CABG/VALVESTUDYRIB SERIESCOMPARISONOctober 2020.FINDINGSThe patient is s/p median sternotomy for coronary artery bypass grafting. The trachea is midline. The cardiac silhouette is unremarkable. There is dolichoectasia and aneurysmal dilatation of the aortic arch measuring up to 5.2 cm in its largest diameter.. The lungs reveal a left upper lobe pneumothorax representing approximately 20 percent of the left lung volume. Most of the pneumothorax is noted involving the left upper lobe. There is also focal density in the left retrocardiac region concerning for an infiltrate.There are subtle nondisplaced fractures involving the left 7th, 8th, and 9th posterior ribs.IMPRESSION1. Left lung pneumothorax involving 20 percent of the left lung volume. Dr. Chen was notified of the findings at the time of the interpretation of the exam at 1:45 a.m. on 02/25/2022.2. Subtle nondisplaced fractures involving the left 7th, 8th, 9th posterior ribs.3. Query left retrocardiac infiltrate.4. Prominence of the aortic arch which may represent aneurysmal dilatation measuring up to 5.2 cm.Electronically signed by: Janeth Gaitan (Feb 25, 2022 01:55:14)
[2022-02-25] MEDS ORDERED: APRESOLINE INJ 20 MG VIAL IVP ONE (02:55)
[2022-02-25] MEDS ORDERED: MORPHINE SULFATE INJ 2 MG INJ IVP ONE (02:55)
[2022-02-25] MEDS ORDERED: APRESOLINE INJ 20 MG VIAL ONE (02:57)
[2022-02-25] MEDS ORDERED: MORPHINE SULFATE INJ 2 MG INJ ONE (02:58)
--- NOTE | 2022-02-25 03:12 | DR.EXTPAIN ---
HPI Time seen Time Seen by Provider: 02/24/22 22:50 PCP Primary Care Physician: YODIT HPI Comment HPI Comment: I [facility] (Dr. Janeth Gaitan)that his films have been over read showing a 20 % Lt. pneumothorax. and roberts btle ribfractures ot hte LT. postrior 7th, 8th and 9th ribs. We had contacted the family to bring the pt. back into the ED. EMS service was also called to see if they could help reach him at home. In the interim, I spoke with on-call surgeon - Dr. Mustafa about the case. The recommendation is that if the pt. is clinically stable he can be admitted to Dr. Cast's service and to have repeat chest films on him in early a.m. Complaint/Symptoms Chief Complaint:: PT IN ED VIA STRETCHER [facility] EMS WITH C/O OF FALLING AGAINST THE CORNER OF HIS HOSPITAL BED HITTING LEFT UPPER RIB AREA. PT C/O PAIN THAT AREA AND LEFT UPPER ABD. COVID-19 Coronavirus risk:travel/contact w/high risk person: No Has patient experienced Coronavirus symptoms: No Source History Provided: Patient Mode of arrival Mode of Arrival: EMS Timing Onset of Chief Complaint: 02/24/22 Associated signs and symptoms Associated Signs and Symptoms: None PMH PMH Past Medical History: Yes Past Medical History: Arthritis, CHF, Coronary Artery Disease, Depression, Dyslipidemia, GERD and Hypertension Past Surgical History: No Surgical History: CABG/Valve Surgery and Other Family History History of Family Medical Conditions: Yes Family Medical History: [place], Coronary Artery Disease, Heart Failure and Hypertension Social History Does patient currently use any type of tobacco product: No Have you used tobacco products in the last 12 months: No Type of Tobacco Use: None Does any household member use tobacco: No Alcohol Use: None Do you use any recreational Drugs:: No Lives With: Family Lives Where: Home Travel Risk Coronavirus risk:travel/contact w/high risk person: No Has patient experienced Coronavirus symptoms: No Infectious screening In the last 2 months have you had wt loss of >10#?: NO Have you had fever, night sweats or hemotysis?: No Have you traveled outside the country in the last 6 months?: No Isolation: Standard PE Vital Signs Vitals: Temperature 98.1 F Pulse Rate [Left Brachial] 78 Pulse Rate 74 Respiratory Rate 24 Blood Pressure [Left Arm] 192/108 Blood Pressure 178/89 O2 Sat by Pulse Oximetry 94 General Limitations: No Limitations General Appearance: Alert and In No Apparent Distress Head Head Exam: Normal Inspection, Atraumatic and Normocephalic Eyes Eye exam: Normal Appearance and EOMI ENT ENT Exam: Normal Exam, Normal Oropharynx, Normal External Ear Exam and Mucous Membranes Moist Neck Neck Exam: Normal Inspection, Full ROM and Trachea Midline Chest Chest Inspection: Normal Inspection, Symmetric Chest Wall Rise and Tenderness (Lt. lower anterior rib cage) Respiratory Respiratory Exam: Normal Lung Sounds Bilat Cardiovascular Cardiovascular Exam: Regular Rate, Normal Rhythm, Normal Heart Sounds, +S1 and +S2 Abdominal Exam Abdominal Exam: Normal Inspection, Normal Bowel Sounds and Soft Extremities Extremities Exam: Normal Inspection and Full ROM Back Back Exam: Normal Inspection and Full ROM Neurological Neurological Exam: Alert and Oriented X3 Psychiatric Psychiatric Exam: Normal Affect and Normal Mood Skin Skin Exam: Intact COURSE Reevaluation 1st: Unchanged Opioid Opioid Risk Tool Age (Ankur box if 16-45): No History of Preadolescent Sexual Abuse: No Total: 0 Total Score Risk Category: Low Risk Copyright: [facility] predicting aberrant behaviors Diagnosis Discharge Problem: Pneumothorax on right Multiple fractures of ribs of left side Qualifiers: Encounter type: initial encounter Fracture type: closed Qualified Code(s): S22.42XA - Multiple fractures of ribs, left side, initial encounter for closed fracture CHF (congestive heart failure), NYHA class III Qualifiers: Congestive heart failure type: unspecified Qualified Code(s): I50.9 - Heart failure, unspecified Hypertensive heart disease with congestive heart failure Qualifiers: Heart failure type: unspecified Qualified Code(s): I11.0 - Hypertensive heart disease with heart failure Instructions Forms: Precautions for [address] [facility] Patient Portal Social Distancing
[2022-02-25 04:57] VITALS: BMI 23.1
[2022-02-25 05:26] LABS: BASOPHILS % (AUTO) 0.2 % (0.2-1.0); EOSINOPHILS % (AUTO) 0.5 % (0.9-2.9); HEMATOCRIT 39.5 % (42.0-54.0); HEMOGLOBIN 14.1 g/dL (13.5-18.0); LYMPHOCYTES # (AUTO) 0.3 X10^3/uL (1.3-2.9); LYMPHOCYTES % (AUTO) 4.4 % (21.0-51.0); MEAN CORPUSCULAR HEMOGLOBIN 32.6 pg (27.0-34.0); MEAN CORPUSCULAR HGB CONC 35.6 g/dL (33.0-35.0); MEAN CORPUSCULAR VOLUME 91.6 fL (80.0-100.0); MEAN PLATELET VOLUME 8.6 fL (7.4-11.0); MONOCYTES # (AUTO) 0.5 x10^3/uL (0.3-0.8); NEUTROPHILS # (AUTO) 6.8 x10^3/uL (2.2-4.8); NEUTROPHILS % (AUTO) 87.9 % (42.0-75.0); RED BLOOD COUNT 4.31 X10^6/uL (4.7-6.0); RED CELL DISTRIBUTION WIDTH 14.8 % (11.6-16.5); WHITE BLOOD COUNT 7.7 X10^3/uL (3.6-10.0)
[2022-02-25 05:42] LABS: ALBUMIN 3.3 g/dL (3.4-5.0); CALCIUM 9.4 mg/dL (8.5-10.1); CARBON DIOXIDE 23.2 mmol/L (21-32); CREATININE 1.82 mg/dL (0.70-1.30); TOTAL PROTEIN 7.5 g/dL (6.4-8.2)
[2022-02-25] MEDS: APRESOLINE TAB 25 MG PO SCH ×3 (06:23→22:34)
--- NOTE | 2022-02-25 06:58 | RAD ---
HISTORYFollow-up pneumothoraxSTUDYChest AP [id number]/2022FINDINGSPati ent is status post median sternotomy and CABG. The heart is enlarged. No congestive heart failure is noted. Aortic arch is dilated measuring 5.2 cm. This is unchanged from the prior examination. Once again noted is a left pneumothorax which has increased somewhat when compared to the prior examination. Is likely 30 of 35 percent. No midline shift. No definite acute infiltrates are identified. Bony thorax is unremarkable. The left rib fractures described on the prior examination are not well demonstrated on this examination.IMPRESSIONIncreasing left pneumothorax now 30 of 35 percent. Chest tube therapy may be required.Cardiomegaly without congestive heart failureDilated aortic arch likely aneurysmal but unchanged from the prior examinationNo infiltratesPatient's left rib fractures are not well demonstrated on this examination.Electronically signed by: LORIE SAAVEDRA (Feb 25, 2022 06:56:49)
[2022-02-25] MEDS: MORPHINE SULFATE INJ 2 MG INJ IVP PRN (07:42)
[2022-02-25] MEDS: LOVENOX INJ 30 MG SYR SC SCH ×2 (09:00→09:50)
[2022-02-25] MEDS ORDERED: NORVASC TAB 2.5 MG ONE (09:45)
[2022-02-25] MEDS: ARICEPT TAB 5 MG PO SCH (09:47)
[2022-02-25] MEDS: ASPIRIN EC 81 MG PO SCH (09:47)
[2022-02-25] MEDS: CYMBALTA PO SCH (09:48)
[2022-02-25] MEDS: CARDIZEM CD 120 MG 24-HR PO SCH (09:48)
[2022-02-25] MEDS: FLOMAX PO SCH (09:49)
[2022-02-25] MEDS: EXELON PATCH TD SCH (09:49)
[2022-02-25] MEDS: LOPRESSOR TAB 50 MG PO SCH ×2 (09:50→20:35)
[2022-02-25] MEDS: MEGACE PO SCH ×2 (09:51→20:36)
[2022-02-25] MEDS: PriLOSEC PO SCH (09:52)
[2022-02-25] MEDS: MICRO K EXTEN CAP 10 MEQ PO SCH (09:52)
[2022-02-25] MEDS: NORVASC TAB 2.5 MG PO SCH (09:52)
[2022-02-25] MEDS: SINGULAIR TAB 10 MG PO SCH (09:53)
[2022-02-25] MEDS: NS 1,000 ML IV 1,000 ML IV SCH (09:57)
--- NOTE | 2022-02-25 10:07 | DR.H&P ---
H&P - History & Physical for Day of: H&P Date: 02/25/22 - Chief Complaint Chief Complaint: FREQUENT FALLS, LEFT SIDE RIB PAIN - History of Present Illness History of Present Illness: IS A 81 YEAR OLD PATIENT OF OUR[facility]. HE PRESENTED TO THE ER WITH COMPLAINTS OF LEFT SIDE RIB PAIN FOLLOWING A FALL AT HOME. HE REPORTS HITTING HIS CHEST AND LEFT SIDE ON THE EDGE OF HIS HOSPITAL BED. HE REPORTS THAT IT HURTS WHEN HE TRIES TO INHALE DEEPLY. HE DENIES SHORTNESS OF BREATH OR COUGH. HIS PMH INCLUDES: ARTHRITIS, CHF, CAD, DEPRESSION, DYSLIPIDEMIA, GERD, HTN, CABG. EXAMINATION REVEALED DIMINISHED LUNG SOUNDS ON THE LEFT SIDE. MODERATE PAIN NOTED TO PALPATION OF LEFT LOWER RIBS. ON ARRIVAL, HIS VITALS WERE: 98.1-74-24-92%-178/89. LABS WERE OBTAINED. WBC 7.7, RBC 4.31, HGB 14.1, HCT 39.5, SODIUM 137, POTASSIUM 4.2, CHLORIDE 103, BUN 30, CREATININE 1.82, GLUCOSE 212, AST 34, ALT 41, ALK PHOS 79, TOTAL PROTEIN 7.5, ALBUMIN 3.3. COVID-19 NEGATIVE. A RIB SERIES WITH CHEST XRAY WAS OBTAINED AND REVEALED: 1. Left lung pneumothorax involving 20 percent of the left lung volume. Dr. Chen was notified of the findings at the time of the interpretation of the exam at 1:45 a.m. on 02/25/2022. 2. Subtle nondisplaced fractures involving the left 7th, 8th, 9th posterior ribs. 3. Query left retrocardiac infiltrate. 4. Prominence of the aortic arch which may represent aneurysmal dilatation measuring up to 5.2 cm. 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 IN THE ER, HE WAS GIVEN ULTRAM 50MG PO X 1, APRESOLINE 20MG IV X 1, MORPHINE 2MG IV X 1. - Past Medical History Past Medical History: Coronary Artery Disease, Hypertension, Dyslipidemia, Depression, GERD, Arthritis, CHF - Past Surgical History Surgical History: CABG/Valve Surgery, Other - Family History Family Medical History: [place], Coronary Artery Disease, Heart Failure, Hypertension - Social History Does patient currently use any type of tobacco product: No Have you used tobacco products in the last 12 months: No Type of Tobacco Use: None Does any household member use tobacco: No Alcohol Use: None Drug Use: None - Medications Home Medications: Penicillins Allergy (Verified 02/25/20 11:52) CONTINUE taking the following medications omeprazole 20 mg PO DAILY 02/25/22 [History] rivastigmine 1 patch TRANSDERMAL DAILY 02/25/22 [History] New Prescriptions tramadol 50 mg PO TID PRN #15 tab MDD 3 02/25/22 [Rx] - Review of Systems Constitutional: Weakness Eyes: No Symptoms Reported ENT: No Symptoms Reported - Physical Exam Vital Signs: Temperature 98 F Pulse Rate [Right Brachial] 90 Pulse Rate [Left Brachial] 82 Pulse Rate 74 Respiratory Rate 18 Blood Pressure [Right Arm] 148/78 Blood Pressure [Left Arm] 179/95 Blood Pressure 178/89 O2 Sat by Pulse Oximetry 93 - Allergies Allergies/Adverse Reactions: Allergies Allergy/AdvReac Type Severity Reaction Status Date / Time Penicillins Allergy Verified 02/25/20 11:52
[2022-02-25 10:25] LABS: CKMB % 4.3 % (<4); CREATINE KINASE MB 1.5 ng/mL (0-4.0)
--- NOTE | 2022-02-25 10:59 | RAD ---
HISTORYFollow-up pneumothoraxSTUDYChest AP [id number]/06/2022 5:17 a.m.FINDINGSPatient is status post median sternotomy and CABG. The heart remains enlarged. No congestive heart failure is noted. Aortic arch is dilated but unchanged. Once again noted is a left pneumothorax which continues to increase in size. Pleural separation in the lung apex measures 3.49 cm on this examination as compared to 2.12 cm on the prior examination. Along the lateral chest wall pleural separation is 1.47 cm as compared to 1.35 cm. No tension identified. No definite acute infiltrates are identified. Bony thorax is unremarkable. Left rib fractures described on prior examinations are not definitely visualized on this examination.IMPRESSIONContinued increase in the size of the patient's left pneumothorax particularly in the left upper hemithorax when compared with the prior examination.No other changes when compared to the earlier examinationElectronically signed by: LORIE SAAVEDRA (Feb 25, 2022 10:58:09)
[2022-02-25] MEDS: MIRABEGRON 50 MG PO SCH (11:27)
--- NOTE | 2022-02-25 13:27 | DR.CONSULT ---
Consult - Consultation for Day of: Date: 02/25/22 - Chief Complaint Chief Complaint: WEAKNESS, DIZZINESS, LEFT SIDED RIB PAIN - History of Present Illness History of Present Illness: IS A 81 YEAR OLD PATIENT OF [facility]. HE PRESENTED TO THE ER WITH COMPLAINTS OF LEFT SIDE RIB PAIN FOLLOWING A FALL AT HOME. HE REPORTS HITTING HIS CHEST AND LEFT SIDE ON THE EDGE OF HIS HOSPITAL BED. HE REPORTS THAT IT HURTS WHEN HE TRIES TO INHALE DEEPLY. HE DENIES SHORTNESS OF BREATH OR COUGH. HIS PMH INCLUDES: ARTHRITIS, CHF, CAD, DEPRESSION, DYSLIPIDEMIA, GERD, HTN, CABG. EXAMINATION REVEALED DIMINISHED LUNG SOUNDS ON THE LEFT SIDE. MODERATE PAIN NOTED TO PALPATION OF LEFT LOWER RIBS. ON ARRIVAL, HIS VITALS WERE: 98.1-74-24-92%-192/108. LABS WERE OBTAINED. WBC 7.7, RBC 4.31, HGB 14.1, HCT 39.5, SODIUM 137, POTASSIUM 4.2, CHLORIDE 103, BUN 30, CREATININE 1.82, GLUCOSE 212, AST 34, ALT 41, ALK PHOS 79, TOTAL PROTEIN 7.5, ALBUMIN 3.3. COVID-19 NEGATIVE. A RIB SERIES WITH CHEST XRAY WAS OBTAINED AND REVEALED: 1. Left lung pneumothorax involving 20 percent of the left lung volume. Dr. Chen was notified of the findings at the time of the interpretation of the exam at 1:45 a.m. on 02/25/2022. 2. Subtle nondisplaced fractures involving the left 7th, 8th, 9th posterior ribs. 3. Query left retrocardiac infiltrate. 4. Prominence of the aortic arch which may represent aneurysmal dilatation measuring up to 5.2 cm. HIS CHEST XRAY WAS REPEATED AT 0515 THIS MORNING. IT REVEALED: Increasing left pneumothorax now 30 of 35 percent. Chest tube therapy may be required. 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 IN THE ER, HE WAS GIVEN ULTRAM 50MG PO X 1, APRESOLINE 20MG IV X 1, MORPHINE 2MG IV X 1. BLOOD PRESSURE DECREASED TO 179/95. ADMITTED PATIENT OBSERVATION STATUS FOR FURTHER EVALUATION AND TREATMENT OF LEFT SIDED PNEUMOTHORAX, MULTIPLE RIB FX, HTN. WE WERE CONSULTED FOR MEDICAL MANAGEMENT. WE WILL START HIM ON NORMAL SALINE AT 75 ML/HR DUE TO DEHYDRATION. WE WILL ALSO START LOVENOX 30MG SC DAILY, MORPHINE 2MG IV Q4H PRN, AND HIS HOME MEDICATIONS WERE RESUMED WITH THE EXCEPTION OF HIS TRIAMTERENE-HCTZ. PLANS TO HOLD OFF ON A CHEST TUBE FOR NOW, BUT WILL CONTINUE TO MONITOR WITH CHEST XRAYS. WE WILL OBTAIN A BRAIN CT WITHOUT CONTRAST DUE TO COMPLAINTS OF SEVERE WEAKNESS AND DIZZINESS. OTHERWISE, WE WILL FOLLOW-UP WITH AM LABS AND CONTINUE TO MONITOR. TIME SPENT ON CLINICAL ASSESSMENT, REVIEWING LABS AND IMAGING, DECISION MAKING, AND DOCUMENTATION GREATER THAN 75 MINUTES. - Past Medical History Past Medical History: Coronary Artery Disease, Hypertension, Dyslipidemia, Depression, GERD, Arthritis, CHF - Past Surgical History Surgical History: CABG/Valve Surgery, Other - Family History Family Medical History: [place], Coronary Artery Disease, Heart Failure, Hypertension - Social History Does patient currently use any type of tobacco product: No Have you used tobacco products in the last 12 months: No Type of Tobacco Use: None Does any household member use tobacco: No Alcohol Use: None Drug Use: None - Medications Home Medications: Penicillins Allergy (Verified 02/25/20 11:52) CONTINUE taking the following medications omeprazole 20 mg PO DAILY 02/25/22 [History] rivastigmine 1 patch TRANSDERMAL DAILY 02/25/22 [History] New Prescriptions tramadol 50 mg PO TID PRN #15 tab MDD 3 02/25/22 [Rx] - Review of Systems Constitutional: Weakness Eyes: No Symptoms Reported ENT: No Symptoms Reported Respiratory: No Symptoms Reported Cardiovascular: Light Headedness Gastrointestinal: No Symptoms Reported Genitourinary: No Symptoms Reported Musculoskeletal: See HPI, Other (LEFT SIDE RIB PAIN ) Skin: Bruising Neurological: See HPI, Weakness - Physical Exam Vital Signs: Temperature 98 F Pulse Rate [Right Brachial] 90 Pulse Rate [Left Brachial] 82 Pulse Rate 72 Respiratory Rate 21 Blood Pressure [Right Arm] 148/78 Blood Pressure [Left Arm] 179/95 Blood Pressure 177/88 O2 Sat by Pulse Oximetry 93 Oriented: Normal Eyes: Normal Ear: Normal Nose: Normal Throat: Normal Respiratory: LML Diminished, LLL Diminished Cardiovascular: Normal : Normal Auscultation: Bowel Sounds: Normal Palpation: Normal Tenderness: Normal Skin: Decreased Turgur Musculoskeletal: Left (LEFT SIDE RIB PAIN TENDERNESS ), Tender Psychiatric: Normal Mood Description: Calm Affect: Normal Speech Pattern: Clear - Plan Plan: OBTAIN BRAIN CT WITHOUT CONTRAST, MONITOR LABS, MONITOR CHEST XRAYS - Allergies Allergies/Adverse Reactions: Allergies Allergy/AdvReac Type Severity Reaction Status Date / Time Penicillins Allergy Verified 02/25/20 11:52
--- NOTE | 2022-02-25 16:43 | CT ---
HISTORYAltered mental statusSTUDYCT brain without contrastCOMPARISONOctober 2020TECHNIQUEMultiple axial images of the brain were obtained from the skull base to the vertex [without] administration of IV contrast.Dose reduction techniques including Automated Exposure Control (AEC) and adjustment of mA and kV were utlized.FINDINGS[No acute intraparenchymal hemorrhage or mass can be identified.] [No extra-axial fluid collections are seen.] [No alteration in the attenuation of the brain parenchyma can be identified to suggest acute or subacute ischemic change.] Small vessel ischemic changes and age-appropriate atrophy are again noted. An old left basal ganglia lacunar infarct is noted. [The ventricular system is symmetric and nondilated.] [There is opacification of the right maxillary sinus with small air-fluid level which is new from prior and correlation for acute sinusitis is requested.IMPRESSION[No acute intracranial process can be identified.]Possible acute right maxillary sinusitis as above.Electronically signed by: CODY DIMAS (Feb 25, 2022 16:41:18)
[2022-02-25] MEDS: CRESTOR TAB 10 MG PO SCH (20:35)
[2022-02-25] MEDS: ANTIVERT TAB 25 MG PO SCH (20:36)
[2022-02-25] MEDS: VIBRAMYCIN 100 MG in D5W 250 ML IV 250 ML IV SCH (20:36)
--- NOTE | 2022-02-25 22:54 | RAD ---
HISTORYPNEUMOTHORAXSTUDYCHEST, 1 VIEWCOMPARISONJune 2021 at 10:12 a.m.TECHNIQUEChest radiographic imaging, AP portable projection, 1 imageFINDINGSMild cardiomegaly.Status post median sternotomy/CABG.No focal airspace disease.No pleural effusion.Left pneumothorax; without significant change when compared to the previous exam.No acute osseous abnormality.IMPRESSIONNo significant interval acute cardiopulmonary changes.Electronically signed by: Fortino Camarena (Feb 25, 2022 22:52:20)
[2022-02-26] MEDS: NS 1,000 ML IV 1,000 ML IV SCH ×2 (00:30→13:47)
[2022-02-26 05:04] LABS: BASOPHILS % (AUTO) 0.2 % (0.2-1.0); EOSINOPHILS % (AUTO) 0.8 % (0.9-2.9); HEMATOCRIT 36.6 % (42.0-54.0); LYMPHOCYTES # (AUTO) 0.3 X10^3/uL (1.3-2.9); LYMPHOCYTES % (AUTO) 5.5 % (21.0-51.0); MEAN CORPUSCULAR HEMOGLOBIN 32.6 pg (27.0-34.0); MEAN CORPUSCULAR HGB CONC 35.5 g/dL (33.0-35.0); MONOCYTES # (AUTO) 0.4 x10^3/uL (0.3-0.8); MONOCYTES % (AUTO) 7.5 % (0.0-13.0); NEUTROPHILS # (AUTO) 5.2 x10^3/uL (2.2-4.8); RED BLOOD COUNT 3.98 X10^6/uL (4.7-6.0); RED CELL DISTRIBUTION WIDTH 14.6 % (11.6-16.5)
[2022-02-26] MEDS: APRESOLINE TAB 25 MG PO SCH ×3 (05:08→21:00)
[2022-02-26 05:14] LABS: ALBUMIN 2.7 g/dL (3.4-5.0); CALCIUM 8.9 mg/dL (8.5-10.1); CARBON DIOXIDE 26.1 mmol/L (21-32); COR CA(FOR HYPOALB) 9.9 mg/dL (8.5-10.1); CREATININE 1.48 mg/dL (0.70-1.30); TOTAL PROTEIN 6.3 g/dL (6.4-8.2)
[2022-02-26] MEDS: MORPHINE SULFATE INJ 2 MG INJ IVP PRN ×2 (06:07→12:50)
--- NOTE | 2022-02-26 06:14 | RAD ---
HISTORYFollow-up pneumothoraxSTUDYChest AP [id number]/06/2022FINDINGSPati ent is rotated to the left. Patient is status post median sternotomy and CABG. The heart remains enlarged. No congestive heart failure is noted. Once again noted is aneurysmal dilatation of the aortic arch stable when compared to the prior examination. The right lung remains clear. Left pneumothorax is not significantly changed from the prior examination. Left upper lung field is clear. There is increasing density in the retrocardiac area of the left lower lobe which could be due to developing atelectasis or infiltrate. No definite left pleural effusion is identified. Bony thorax is unremarkable.IMPRESSIONNo significant change left pneumothoraxNo change cardiomegaly without congestive heart failureIncreasing density retrocardiac area of the left lower lobe which could be due to atelectasis or infiltrateNo change dilated aortic archElectronically signed by: LORIE SAAVEDRA (Feb 26, 2022 06:13:14)
[2022-02-26] MEDS ORDERED: NORVASC TAB 2.5 MG ONE (09:03)
[2022-02-26] MEDS: ARICEPT TAB 5 MG PO SCH (09:13)
[2022-02-26] MEDS: CARDIZEM CD 120 MG 24-HR PO SCH (09:14)
[2022-02-26] MEDS: ASPIRIN EC 81 MG PO SCH (09:14)
[2022-02-26] MEDS: CYMBALTA PO SCH (09:15)
[2022-02-26] MEDS: EXELON PATCH TD SCH (09:15)
[2022-02-26] MEDS: FLOMAX PO SCH (09:16)
[2022-02-26] MEDS: LOPRESSOR TAB 50 MG PO SCH ×2 (09:16→20:46)
[2022-02-26] MEDS: LOVENOX INJ 30 MG SYR SC SCH (09:17)
[2022-02-26] MEDS: MEGACE PO SCH ×2 (09:18→20:46)
[2022-02-26] MEDS: MICRO K EXTEN CAP 10 MEQ PO SCH (09:18)
[2022-02-26] MEDS: NORVASC TAB 2.5 MG PO SCH (09:19)
[2022-02-26] MEDS: MIRABEGRON 50 MG PO SCH (09:19)
[2022-02-26] MEDS: PriLOSEC PO SCH (09:20)
[2022-02-26] MEDS: SINGULAIR TAB 10 MG PO SCH (09:22)
[2022-02-26] MEDS: VIBRAMYCIN 100 MG in D5W 250 ML IV 250 ML IV SCH ×2 (09:22→20:47)
[2022-02-26] MEDS: XOPENEX 1.25 MG/3 ML NEBULE NEB SCH ×3 (09:25→21:33)
--- NOTE | 2022-02-26 10:01 | DR.PROGNOT ---
Hospital Progress Notes - Progress Note for Day of: Progress Note Date: 02/26/22 - Chief Complaint Chief Complaint: c/o Lt chest pain .. no SOB .mild cough . no abdominal pain . chest X ray showed no changes in the pneumothorax . - Past Medical Family Social History Past Med/Fam/Surg Hx: No changes since H&P Allergies: Allergies Penicillins Allergy (Verified 02/25/20 11:52) - Review Of Systems ROS: No change since H&P - Vital Signs Vital Signs: Temperature 98.6 F Pulse Rate [Right Brachial] 90 Pulse Rate [Left Brachial] 82 Pulse Rate 74 Respiratory Rate 18 Blood Pressure [Right Arm] 148/78 Blood Pressure [Left Arm] 179/95 Blood Pressure 180/91 O2 Sat by Pulse Oximetry 94 - Physical Exam Oriented: Normal Eyes: Normal Ear: Normal Nose: Normal Throat: Normal Respiratory: Left (tenderness Lt chest wall with diminished BS ), Diminished Cardiovascular: Normal : Normal GI:Auscultation: Normal GI:Palpation: Normal GI: Tenderness: Normal Skin: Decreased Turgur Musculoskeletal: Left (LEFT SIDE RIB PAIN TENDERNESS ), Tender Psychiatric: Normal Mood Description: Calm Affect: Normal Speech Pattern: Clear, Appropriate - Laboratory and Diagnostics Result Diagrams: 02/26/22 04:10 02/26/22 04:10 Labs: Laboratory WBC 6.0 X10^3/uL (3.6-10.0) 02/26/22 04:10 RBC 3.98 X10^6/uL (4.7-6.0) L 02/26/22 04:10 Hgb 13.0 g/dL (13.5-18.0) L 02/26/22 04:10 Hct 36.6 % (42.0-54.0) L 02/26/22 04:10 MCV 92.0 fL (80.0-100.0) 02/26/22 04:10 MCH 32.6 pg (27.0-34.0) 02/26/22 04:10 MCHC 35.5 g/dL (33.0-35.0) H 02/26/22 04:10 RDW 14.6 % (11.6-16.5) 02/26/22 04:10 Plt Count 163 X10^3/uL (150.0-450.0) 02/26/22 04:10 MPV 8.0 fL (7.4-11.0) 02/26/22 04:10 Neut % (Auto) 86.0 % (42.0-75.0) H 02/26/22 04:10 Lymph % (Auto) 5.5 % (21.0-51.0) L 02/26/22 04:10 [place] % (Auto) 7.5 % (0.0-13.0) 02/26/22 04:10 Eos % (Auto) 0.8 % (0.9-2.9) L 02/26/22 04:10 Baso % (Auto) 0.2 % (0.2-1.0) 02/26/22 04:10 Neut # (Auto) 5.2 x10^3/uL (2.2-4.8) H 02/26/22 04:10 Lymph # (Auto) 0.3 X10^3/uL (1.3-2.9) L 02/26/22 04:10 [place] # (Auto) 0.4 x10^3/uL (0.3-0.8) 02/26/22 04:10 Eos # (Auto) 0.0 x10^3/uL (0.0-0.2) 02/26/22 04:10 Baso # (Auto) 0.0 X10^3/uL (0.0-0.1) 02/26/22 04:10 Absolute Nucleated RBC 0.0 /100WBC 02/26/22 04:10 Sodium 136 mmol/L (136-145) 02/26/22 04:10 Corrected Sodium 137 mmol/L (136-145) 02/26/22 04:10 Potassium 3.5 mmol/L (3.5-5.1) 02/26/22 04:10 Chloride 103 mmol/L (98-107) 02/26/22 04:10 Carbon Dioxide 26.1 mmol/L (21-32) 02/26/22 04:10 BUN 23 mg/dL (7-18) H 02/26/22 04:10 Creatinine 1.48 mg/dL (0.70-1.30) H 02/26/22 04:10 Est GFR (MDRD) Af Amer 59 (>60) 02/26/22 04:10 Est GFR (MDRD) Non-Af 48 (>60) L 02/26/22 04:10 Glucose 125 mg/dL (65-99) H 02/26/22 04:10 POC Glucose (mg/dL) 182 mg/dL (65-99) H 02/25/22 20:17 Calcium 8.9 mg/dL (8.5-10.1) 02/26/22 04:10 Corrected Calcium 9.9 mg/dL (8.5-10.1) 02/26/22 04:10 Total Bilirubin 1.00 mg/dL (0.2-1.0) 02/26/22 04:10 AST 17 Units/L (15-37) 02/26/22 04:10 ALT 28 Units/L (12-78) 02/26/22 04:10 Alkaline Phosphatase 68 Units/L (46-116) 02/26/22 04:10 Creatine Kinase 35 Units/L (39-308) L 02/25/22 09:54 CK-MB (CK-2) 1.5 ng/mL (0-4.0) 02/25/22 09:54 CK/CKMB % Calc 4.3 % (<4) 02/25/22 09:54 Troponin I High Sens 11.3 ng/L (4.0-60.0) 02/25/22 09:54 Total Protein 6.3 g/dL (6.4-8.2) L 02/26/22 04:10 Albumin 2.7 g/dL (3.4-5.0) L 02/26/22 04:10 Globulin 3.6 g/dL (2.5-4.5) 02/26/22 04:10 Albumin/Globulin Ratio 0.8 Ratio (1.1-2.1) L 02/26/22 04:10 SARS-CoV-2 (PCR) Negative (NEGATIVE) 02/25/22 03:21 - Assessment and Plan 1: blunt ches trauma . Lt pneumothorax ( stable ). rib Fractures 7,8,9. same plan .. PT and OOB , incentive spirometer .. repeat chest Xray in am - Problem Patient Problems: Patient Problems Pneumothorax on right (Acute) J93.9 Multiple fractures of ribs of left side (Acute) S22.42XA CHF (congestive heart failure), NYHA class III (Acute) I50.9 Hypertensive heart disease with congestive heart failure (Acute) I11.0
[2022-02-26] MEDS ORDERED: LEVAQUIN PREMIX IV 500 MG 500 MG/100 ML BAG IV NR (11:00)
--- NOTE | 2022-02-26 18:22 | RAD ---
HISTORYAbdominal painSTUDYKUBCOMPARISONNone availableTECHNIQUEKUB, 2 imagesFINDINGSGas and stool in non-distended colon and rectum.No gross free.No abnormal calcifications.No acute osseous abnormality.Imaged portion of the lungs are clear.IMPRESSIONNo acute intra-abdominal abnormality detected.Electronically signed by: Fortino Camarena (Feb 26, 2022 18:21:35)
[2022-02-26] MEDS ORDERED: VIBRAMYCIN IV ONE (20:07)
[2022-02-26] MEDS: ANTIVERT TAB 25 MG PO SCH (20:46)
[2022-02-26] MEDS: CRESTOR TAB 10 MG PO SCH (20:46)
[2022-02-27 04:53] LABS: BASOPHILS % (AUTO) 0.2 % (0.2-1.0); EOSINOPHILS % (AUTO) 0.5 % (0.9-2.9); HEMATOCRIT 36.1 % (42.0-54.0); HEMOGLOBIN 12.7 g/dL (13.5-18.0); LYMPHOCYTES # (AUTO) 0.3 X10^3/uL (1.3-2.9); LYMPHOCYTES % (AUTO) 5.3 % (21.0-51.0); MEAN CORPUSCULAR HEMOGLOBIN 32.3 pg (27.0-34.0); MEAN CORPUSCULAR HGB CONC 35.2 g/dL (33.0-35.0); MEAN CORPUSCULAR VOLUME 91.6 fL (80.0-100.0); MONOCYTES # (AUTO) 0.5 x10^3/uL (0.3-0.8); MONOCYTES % (AUTO) 8.5 % (0.0-13.0); NEUTROPHILS # (AUTO) 4.6 x10^3/uL (2.2-4.8); NEUTROPHILS % (AUTO) 85.5 % (42.0-75.0); RED BLOOD COUNT 3.94 X10^6/uL (4.7-6.0); RED CELL DISTRIBUTION WIDTH 14.8 % (11.6-16.5); WHITE BLOOD COUNT 5.4 X10^3/uL (3.6-10.0)
[2022-02-27 05:13] LABS: ALBUMIN 2.4 g/dL (3.4-5.0); CALCIUM 8.7 mg/dL (8.5-10.1); CARBON DIOXIDE 21.6 mmol/L (21-32); CREATININE 1.52 mg/dL (0.70-1.30); TOTAL PROTEIN 6.2 g/dL (6.4-8.2)
[2022-02-27] MEDS: NS 1,000 ML IV 1,000 ML IV SCH ×3 (05:13→18:09)
[2022-02-27] MEDS: XOPENEX 1.25 MG/3 ML NEBULE NEB SCH ×3 (06:07→21:17)
--- NOTE | 2022-02-27 06:07 | RAD ---
HISTORYShortness of breathSTUDYChest AP [id number]/07/2022FINDINGSPati ent is status post median sternotomy and CABG. Heart remains enlarged. No congestive heart failure is noted. The aortic arch is dilated but unchanged. Right lung is clear. There has been a decrease in the size of the left pneumothorax when compared with the prior examination. Pneumothorax can still be identified in the apical region, medial upper lung and left costophrenic angle. Increased density remains in the retrocardiac area of the left lower lobe obscuring the medial left hemidiaphragm which could be due to atelectasis or infiltrate. No definite left pleural effusion is identified. Bony thorax is unremarkable.IMPRESSIONDecreasing left pneumothorax when compared with the prior examinationExamination is otherwise unchanged from the prior examinationElectronically signed by: LORIE SAAVEDRA (Feb 27, 2022 06:05:25)
[2022-02-27] MEDS: APRESOLINE TAB 25 MG PO SCH ×3 (06:28→21:02)
[2022-02-27] MEDS ORDERED: NORVASC TAB 2.5 MG ONE (08:57)
[2022-02-27] MEDS: ASPIRIN EC 81 MG PO SCH (09:07)
[2022-02-27] MEDS: CYMBALTA PO SCH (09:07)
[2022-02-27] MEDS: CARDIZEM CD 120 MG 24-HR PO SCH (09:07)
[2022-02-27] MEDS: LOPRESSOR TAB 50 MG PO SCH ×2 (09:08→21:01)
[2022-02-27] MEDS: FLOMAX PO SCH (09:08)
[2022-02-27] MEDS: LEVAQUIN PREMIX IV 250 MG 250 MG/50 ML BAG IV SCH (09:08)
[2022-02-27] MEDS: LOVENOX INJ 30 MG SYR SC SCH (09:09)
[2022-02-27] MEDS: MEGACE PO SCH ×2 (09:09→21:01)
[2022-02-27] MEDS: MICRO K EXTEN CAP 10 MEQ PO SCH (09:11)
[2022-02-27] MEDS: MIRABEGRON 50 MG PO SCH (09:12)
[2022-02-27] MEDS: NORVASC TAB 2.5 MG PO SCH (09:12)
[2022-02-27] MEDS: PriLOSEC PO SCH (09:13)
[2022-02-27] MEDS: SINGULAIR TAB 10 MG PO SCH (09:13)
[2022-02-27] MEDS: EXELON PATCH TD SCH (09:16)
[2022-02-27] MEDS: ARICEPT TAB 5 MG PO SCH (09:16)
--- NOTE | 2022-02-27 09:50 | DR.PROGNOT ---
Hospital Progress Notes - Progress Note for Day of: Progress Note Date: 02/27/22 - Chief Complaint Chief Complaint: confused at times .. no SOB ,. c/o Lt chest pain . no abdominal pain . chest X ray showed decreased pneumothorax and infiltrates LLL. BUN/Creat 21/1.5 .. K 3.4 - Past Medical Family Social History Past Med/Fam/Surg Hx: No changes since H&P Allergies: Allergies Penicillins Allergy (Verified 02/25/20 11:52) - Review Of Systems ROS: No change since H&P - Vital Signs Vital Signs: Temperature 98.7 F Pulse Rate [Right Brachial] 90 Pulse Rate [Left Brachial] 82 Pulse Rate 92 Respiratory Rate 28 Blood Pressure [Right Arm] 148/78 Blood Pressure [Left Arm] 179/95 Blood Pressure 166/85 O2 Sat by Pulse Oximetry 93 - Physical Exam Oriented: Normal Eyes: Normal Ear: Normal Nose: Normal Throat: Normal Respiratory: Left (tenderness Lt chest wall with diminished BS ), Diminished Cardiovascular: Normal : Normal GI:Auscultation: Normal GI:Palpation: Normal GI: Tenderness: Normal Skin: Decreased Turgur Musculoskeletal: Left (LEFT SIDE RIB PAIN TENDERNESS ), Tender Psychiatric: Normal Mood Description: Calm Affect: Normal Speech Pattern: Unclear - Laboratory and Diagnostics Result Diagrams: 02/27/22 04:20 02/27/22 04:20 Labs: Laboratory WBC 5.4 X10^3/uL (3.6-10.0) 02/27/22 04:20 RBC 3.94 X10^6/uL (4.7-6.0) L 02/27/22 04:20 Hgb 12.7 g/dL (13.5-18.0) L 02/27/22 04:20 Hct 36.1 % (42.0-54.0) L 02/27/22 04:20 MCV 91.6 fL (80.0-100.0) 02/27/22 04:20 MCH 32.3 pg (27.0-34.0) 02/27/22 04:20 MCHC 35.2 g/dL (33.0-35.0) H 02/27/22 04:20 RDW 14.8 % (11.6-16.5) 02/27/22 04:20 Plt Count 151 X10^3/uL (150.0-450.0) 02/27/22 04:20 MPV 8.0 fL (7.4-11.0) 02/27/22 04:20 Neut % (Auto) 85.5 % (42.0-75.0) H 02/27/22 04:20 Lymph % (Auto) 5.3 % (21.0-51.0) L 02/27/22 04:20 [place] % (Auto) 8.5 % (0.0-13.0) 02/27/22 04:20 Eos % (Auto) 0.5 % (0.9-2.9) L 02/27/22 04:20 Baso % (Auto) 0.2 % (0.2-1.0) 02/27/22 04:20 Neut # (Auto) 4.6 x10^3/uL (2.2-4.8) 02/27/22 04:20 Lymph # (Auto) 0.3 X10^3/uL (1.3-2.9) L 02/27/22 04:20 [place] # (Auto) 0.5 x10^3/uL (0.3-0.8) 02/27/22 04:20 Eos # (Auto) 0.0 x10^3/uL (0.0-0.2) 02/27/22 04:20 Baso # (Auto) 0.0 X10^3/uL (0.0-0.1) 02/27/22 04:20 Absolute Nucleated RBC 0.0 /100WBC 02/27/22 04:20 Sodium 133 mmol/L (136-145) L 02/27/22 04:20 Corrected Sodium 135 mmol/L (136-145) L 02/27/22 04:20 Potassium 3.4 mmol/L (3.5-5.1) L 02/27/22 04:20 Chloride 103 mmol/L (98-107) 02/27/22 04:20 Carbon Dioxide 21.6 mmol/L (21-32) 02/27/22 04:20 BUN 21 mg/dL (7-18) H 02/27/22 04:20 Creatinine 1.52 mg/dL (0.70-1.30) H 02/27/22 04:20 Est GFR (MDRD) Af Amer 57 (>60) L 02/27/22 04:20 Est GFR (MDRD) Non-Af 47 (>60) L 02/27/22 04:20 Glucose 163 mg/dL (65-99) H 02/27/22 04:20 POC Glucose (mg/dL) 242 mg/dL (65-99) H 02/26/22 19:45 Calcium 8.7 mg/dL (8.5-10.1) 02/27/22 04:20 Corrected Calcium 10.0 mg/dL (8.5-10.1) 02/27/22 04:20 Total Bilirubin 0.50 mg/dL (0.2-1.0) 02/27/22 04:20 AST 16 Units/L (15-37) 02/27/22 04:20 ALT 22 Units/L (12-78) 02/27/22 04:20 Alkaline Phosphatase 65 Units/L (46-116) 02/27/22 04:20 Creatine Kinase 35 Units/L (39-308) L 02/25/22 09:54 CK-MB (CK-2) 1.5 ng/mL (0-4.0) 02/25/22 09:54 CK/CKMB % Calc 4.3 % (<4) 02/25/22 09:54 Troponin I High Sens 11.3 ng/L (4.0-60.0) 02/25/22 09:54 Total Protein 6.2 g/dL (6.4-8.2) L 02/27/22 04:20 Albumin 2.4 g/dL (3.4-5.0) L 02/27/22 04:20 Globulin 3.8 g/dL (2.5-4.5) 02/27/22 04:20 Albumin/Globulin Ratio 0.6 Ratio (1.1-2.1) L 02/27/22 04:20 SARS-CoV-2 (PCR) Negative (NEGATIVE) 02/25/22 03:21 - Assessment and Plan 1: blunt chest trauma . Lt pneumothorax ( stable ). Rib Fractures 7,8,9. LLL infiltrate , atelectasis . CKD. confusion. same plan .. PT and OOB , incentive spirometer .. repeat chest Xray in am - Problem Patient Problems: Patient Problems Pneumothorax on right (Acute) J93.9 Multiple fractures of ribs of left side (Acute) S22.42XA CHF (congestive heart failure), NYHA class III (Acute) I50.9 Hypertensive heart disease with congestive heart failure (Acute) I11.0
[2022-02-27] MEDS: ATIVAN TAB 1 MG PO PRN ×2 (10:07→21:03)
[2022-02-27] MEDS: VIBRAMYCIN 100 MG in D5W 250 ML IV 250 ML IV SCH ×2 (10:28→21:02)
--- NOTE | 2022-02-27 13:18 | PCM.PROG ---
Progress Note - Progress Note for Day of Date of Exam: 02/26/22 - Subjective Subjective: WAS ADMITTED OBSERVATION STATUS FOR TREATMENT OF LEFT SIDED PNEUMOTHORAX, DEHYDRATION, AND MULTIPLE RIB FX. HE IS BEING FOLLOWED BY , GENERAL SURGEON. HE CHOSE NOT TO INSERT A CHEST TUBE ON ADMISSION, BUT TO CONTINUE TO MONITOR. TODAY, HE IS ALERT AND ORIENTED, LYING IN BED ON MORNING ROUNDS. HE CONTINUES WITH COMPLAINTS OF WEAKNESS AND SHORTNESS OF BREATH. HE DENIES SIGNIFICANT IMPROVEMENT IN SYMPTOMS SINCE ADMISSION. ON EXAMINATION, HEART IS REGULAR IN RATE AND RHYTHM. BILATERAL LUNGS ARE NOTED WITH DIMINISHED LUNG SOUNDS THROUGHOUT. ABDOMEN IS FLAT, SOFT, AND NON-TENDER WITH NORMAL BOWEL SOUNDS NOTED IN ALL QUADRANTS. NO UPPER OR LOWER EXTREMITY EDEMA NOTED. HIS VITALS THIS MORNING ARE: 98.1-72-22-91%RA-152/89. LABS WERE OBTAINED. WBC 6.0, RBC 3.98, HGB 13.0, HCT 36.6, PLT COUNT 163, SODIUM 136, POTASSIUM 3.5, CHLORIDE 103, CARBON DIOXIDE 26.1, BUN 23, CREATININE 1.48, GLUCOSE 125, CALCIUM 8.9, AST 17, ALT 28, ALK PHOS 68, TOTAL PROTEIN 6.3, ALBUMIN 2.7. A CHEST XRAY WAS REPEATED THIS MORNING AND REVEALED: No significant change left pneumothorax. No change cardiomegaly without congestive heart failure. Increasing density retrocardiac area of the left lower lobe which could be due to atelectasis or infiltrate. No change dilated aortic arch. HE IS CURRENTLY RECEIVING NORMAL SALINE AT 75 ML/HRDOXYCYCLINE 100MG IV BID, LOVENOX 30MG SC DAILY, MORPHINE 2MG IV Q4H PRN, AND HIS HOME MEDICATIONS WERE RESUMED WITH THE EXCEPTION OF HIS TRIAMTERENE-HCTZ. TODAY, WE WILL ADD LEVAQUIN 250MG IV DAILY AND XOPENEX NEB TX TODAY FOR TREATMENT OF PNEUMONIA. OTHERWISE, WE WILL FOLLOW-UP WITH AM LABS AND CHEST XRAY AND CONTINUE TO MONITOR. TIME SPENT ON CLINICAL ASSESSMENT, REVIEWING LABS AND IMAGING, DECISION MAKING, AND DOCUMENTATION GREATER THAN 45 MINUTES. - Past Medical Family Social History Past Med/Fam/Surg Hx: No changes since H&P Allergies: Allergies Penicillins Allergy (Verified 02/25/20 11:52) - Review of Systems ROS: No change since H&P - Vital Signs and I&O's Vital Signs: Temperature 99.0 F Pulse Rate [Right Brachial] 90 Pulse Rate [Left Brachial] 82 Pulse Rate 87 Respiratory Rate 32 Blood Pressure [Right Arm] 148/78 Blood Pressure [Left Arm] 179/95 Blood Pressure 166/97 O2 Sat by Pulse Oximetry 94 Intake and Output: Intake & Output 02/25/22 02/26/22 02/27/22 02/28/22 11:59 11:59 11:59 11:59 Intake Total 1698 / 169 2820 / 2820 Output Total 500 / 500 Balance 1698 / 1698 2320 / 2320 - Physical Exam Oriented: Normal Eyes: Normal Ear: Normal Nose: Normal Throat: Normal Respiratory: Left (tenderness Lt chest wall with diminished BS ), Diminished Cardiovascular: Normal : Normal Auscultation: Bowel Sounds: Normal Palpation: Normal Tenderness: Normal Skin: Decreased Turgur Musculoskeletal: Left (LEFT SIDE RIB PAIN TENDERNESS ), Tender Psychiatric: Normal Mood Description: Calm Affect: Normal Speech Pattern: Unclear - Laboratory and Diagnostics Result Diagrams: 02/27/22 04:20 02/27/22 04:20 Labs: Laboratory WBC 5.4 X10^3/uL (3.6-10.0) 02/27/22 04:20 RBC 3.94 X10^6/uL (4.7-6.0) L 02/27/22 04:20 Hgb 12.7 g/dL (13.5-18.0) L 02/27/22 04:20 Hct 36.1 % (42.0-54.0) L 02/27/22 04:20 MCV 91.6 fL (80.0-100.0) 02/27/22 04:20 MCH 32.3 pg (27.0-34.0) 02/27/22 04:20 MCHC 35.2 g/dL (33.0-35.0) H 02/27/22 04:20 RDW 14.8 % (11.6-16.5) 02/27/22 04:20 Plt Count 151 X10^3/uL (150.0-450.0) 02/27/22 04:20 MPV 8.0 fL (7.4-11.0) 02/27/22 04:20 Neut % (Auto) 85.5 % (42.0-75.0) H 02/27/22 04:20 Lymph % (Auto) 5.3 % (21.0-51.0) L 02/27/22 04:20 Divide % (Auto) 8.5 % (0.0-13.0) 02/27/22 04:20 Eos % (Auto) 0.5 % (0.9-2.9) L 02/27/22 04:20 Baso % (Auto) 0.2 % (0.2-1.0) 02/27/22 04:20 Neut # (Auto) 4.6 x10^3/uL (2.2-4.8) 02/27/22 04:20 Lymph # (Auto) 0.3 X10^3/uL (1.3-2.9) L 02/27/22 04:20 Divide # (Auto) 0.5 x10^3/uL (0.3-0.8) 02/27/22 04:20 Eos # (Auto) 0.0 x10^3/uL (0.0-0.2) 02/27/22 04:20 Baso # (Auto) 0.0 X10^3/uL (0.0-0.1) 02/27/22 04:20 Absolute Nucleated RBC 0.0 /100WBC 02/27/22 04:20 Sodium 133 mmol/L (136-145) L 02/27/22 04:20 Corrected Sodium 135 mmol/L (136-145) L 02/27/22 04:20 Potassium 3.4 mmol/L (3.5-5.1) L 02/27/22 04:20 Chloride 103 mmol/L (98-107) 02/27/22 04:20 Carbon Dioxide 21.6 mmol/L (21-32) 02/27/22 04:20 BUN 21 mg/dL (7-18) H 02/27/22 04:20 Creatinine 1.52 mg/dL (0.70-1.30) H 02/27/22 04:20 Est GFR (MDRD) Af Amer 57 (>60) L 02/27/22 04:20 Est GFR (MDRD) Non-Af 47 (>60) L 02/27/22 04:20 Glucose 163 mg/dL (65-99) H 02/27/22 04:20 POC Glucose (mg/dL) 204 mg/dL (65-99) H 02/27/22 11:14 Calcium 8.7 mg/dL (8.5-10.1) 02/27/22 04:20 Corrected Calcium 10.0 mg/dL (8.5-10.1) 02/27/22 04:20 Total Bilirubin 0.50 mg/dL (0.2-1.0) 02/27/22 04:20 AST 16 Units/L (15-37) 02/27/22 04:20 ALT 22 Units/L (12-78) 02/27/22 04:20 Alkaline Phosphatase 65 Units/L (46-116) 02/27/22 04:20 Creatine Kinase 35 Units/L (39-308) L 02/25/22 09:54 CK-MB (CK-2) 1.5 ng/mL (0-4.0) 02/25/22 09:54 CK/CKMB % Calc 4.3 % (<4) 02/25/22 09:54 Troponin I High Sens 11.3 ng/L (4.0-60.0) 02/25/22 09:54 Total Protein 6.2 g/dL (6.4-8.2) L 02/27/22 04:20 Albumin 2.4 g/dL (3.4-5.0) L 02/27/22 04:20 Globulin 3.8 g/dL (2.5-4.5) 02/27/22 04:20 Albumin/Globulin Ratio 0.6 Ratio (1.1-2.1) L 02/27/22 04:20 SARS-CoV-2 (PCR) Negative (NEGATIVE) 02/25/22 03:21 - Plan (1) Pneumothorax on left Status: Acute Plan: NORMAL SALINE AT 75 ML/HR, DOXYCYCLINE 100MG IV BID, LEVAQUIN 250MG IV DAILY, XOPENEX NEB TX, LOVENOX 30MG SC DAILY, MORPHINE 2MG IV Q4H PRN, AND HIS HOME MEDICATIONS WERE RESUMED WITH THE EXCEPTION OF HIS TRIAMTERENE-HCTZ (2) Pneumonia Status: Acute Qualifiers: Pneumonia type: due to unspecified organism Laterality: left Lung location: lower lobe of lung Qualified Code(s): J18.9 - Pneumonia, unspecified organism (3) Multiple rib fractures Status: Acute Qualifiers: Encounter type: initial encounter Fracture type: closed Laterality: left Qualified Code(s): S22.42XA - Multiple fractures of ribs, left side, initial encounter for closed fracture (4) Dehydration Status: Acute (5) Hypertension Status: Chronic Qualifiers: Hypertension type: primary hypertension Qualified Code(s): I10 - Essential (primary) hypertension
--- NOTE | 2022-02-27 13:26 | PCM.PROG ---
Progress Note - Progress Note for Day of Date of Exam: 02/27/22 - Subjective Subjective: WAS ADMITTED OBSERVATION STATUS FOR TREATMENT OF LEFT SIDED PNEUMOTHORAX, PNEUMONIA, DEHYDRATION, AND MULTIPLE RIB FX. HE IS BEING FOLLOWED BY , GENERAL SURGEON. HE CHOSE NOT TO INSERT A CHEST TUBE ON ADMISSION, BUT TO CONTINUE TO MONITOR. TODAY, HE IS ALERT AND ORIENTED, LYING IN BED ON MORNING ROUNDS. HE CONTINUES WITH COMPLAINTS OF WEAKNESS AND SHORTNESS OF BREATH. HE DENIES SIGNIFICANT IMPROVEMENT IN SYMPTOMS SINCE ADMISSION. ON EXAMINATION, HEART IS REGULAR IN RATE AND RHYTHM. BILATERAL LUNGS ARE NOTED WITH DIMINISHED LUNG SOUNDS THROUGHOUT. ABDOMEN IS FLAT, SOFT, AND NON-TENDER WITH NORMAL BOWEL SOUNDS NOTED IN ALL QUADRANTS. NO UPPER OR LOWER EXTREMITY EDEMA NOTED. HIS VITALS THIS MORNING ARE: 98.7-85-25-92%-183/96. LABS WERE OBTAINED. WBC 5.4, RBC 3.94, HGB 12.7, HCT 36.1, SODIUM 133, POTASSIUM 3.4, BUN 21, CREATININE 1.52, GLUCOSE 163, TOTAL PROTEIN 6.2, ALBUMIN 2.4. A CHEST XRAY WAS REPEATED THIS MORNING AND REVEALED: Decreasing left pneumothorax when compared with the prior examination. Examination is otherwise unchanged from the prior examination. HE IS CURRENTLY RECEIVING NORMAL SALINE AT 75 ML/HR, DOXYCYCLINE 100MG IV BID, LEVAQUIN 250MG IV DAILY, XOPENEX NEB TX, LOVENOX 30MG SC DAILY, MORPHINE 2MG IV Q4H PRN, AND HIS HOME MEDICATIONS WERE RESUMED WITH THE EXCEPTION OF HIS TRIAMTERENE-HCTZ. WE WILL CONTINUE WITH CURRENT PLAN OF CARE TODAY. OTHERWISE, WE WILL FOLLOW-UP WITH AM LABS AND CHEST XRAY AND CONTINUE TO MONITOR. TIME SPENT ON CLINICAL ASSESSMENT, REVIEWING LABS AND IMAGING, DECISION MAKING, AND DOCUMENTATION GREATER THAN 45 MINUTES. - Past Medical Family Social History Past Med/Fam/Surg Hx: No changes since H&P Allergies: Allergies Penicillins Allergy (Verified 02/25/20 11:52) - Review of Systems ROS: No change since H&P - Vital Signs and I&O's Vital Signs: Temperature 99.0 F Pulse Rate [Right Brachial] 90 Pulse Rate [Left Brachial] 82 Pulse Rate 87 Respiratory Rate 32 Blood Pressure [Right Arm] 148/78 Blood Pressure [Left Arm] 179/95 Blood Pressure 166/97 O2 Sat by Pulse Oximetry 94 Intake and Output: Intake & Output 02/25/22 02/26/22 02/27/22 02/28/22 11:59 11:59 11:59 11:59 Intake Total 1697 / 1697 2820 / 2820 Output Total 500 / 500 300 / 300 Balance 1697 / 169 2320 / 2320 -300 / -300 - Physical Exam Oriented: Normal Eyes: Normal Ear: Normal Nose: Normal Throat: Normal Respiratory: Left (tenderness Lt chest wall with diminished BS ), Diminished Cardiovascular: Normal : Normal Auscultation: Bowel Sounds: Normal Tenderness: Normal Skin: Decreased Turgur Musculoskeletal: Left (LEFT SIDE RIB PAIN TENDERNESS ), Tender Psychiatric: Normal Mood Description: Calm Affect: Normal Speech Pattern: Unclear - Laboratory and Diagnostics Result Diagrams: 02/27/22 04:20 02/27/22 04:20 Labs: Laboratory WBC 5.4 X10^3/uL (3.6-10.0) 02/27/22 04:20 RBC 3.94 X10^6/uL (4.7-6.0) L 02/27/22 04:20 Hgb 12.7 g/dL (13.5-18.0) L 02/27/22 04:20 Hct 36.1 % (42.0-54.0) L 02/27/22 04:20 MCV 91.6 fL (80.0-100.0) 02/27/22 04:20 MCH 32.3 pg (27.0-34.0) 02/27/22 04:20 MCHC 35.2 g/dL (33.0-35.0) H 02/27/22 04:20 RDW 14.8 % (11.6-16.5) 02/27/22 04:20 Plt Count 151 X10^3/uL (150.0-450.0) 02/27/22 04:20 MPV 8.0 fL (7.4-11.0) 02/27/22 04:20 Neut % (Auto) 85.5 % (42.0-75.0) H 02/27/22 04:20 Lymph % (Auto) 5.3 % (21.0-51.0) L 02/27/22 04:20 [place] % (Auto) 8.5 % (0.0-13.0) 02/27/22 04:20 Eos % (Auto) 0.5 % (0.9-2.9) L 02/27/22 04:20 Baso % (Auto) 0.2 % (0.2-1.0) 02/27/22 04:20 Neut # (Auto) 4.6 x10^3/uL (2.2-4.8) 02/27/22 04:20 Lymph # (Auto) 0.3 X10^3/uL (1.3-2.9) L 02/27/22 04:20 Beltrami # (Auto) 0.5 x10^3/uL (0.3-0.8) 02/27/22 04:20 Eos # (Auto) 0.0 x10^3/uL (0.0-0.2) 02/27/22 04:20 Baso # (Auto) 0.0 X10^3/uL (0.0-0.1) 02/27/22 04:20 Absolute Nucleated RBC 0.0 /100WBC 02/27/22 04:20 Sodium 133 mmol/L (136-145) L 02/27/22 04:20 Corrected Sodium 135 mmol/L (136-145) L 02/27/22 04:20 Potassium 3.4 mmol/L (3.5-5.1) L 02/27/22 04:20 Chloride 103 mmol/L (98-107) 02/27/22 04:20 Carbon Dioxide 21.6 mmol/L (21-32) 02/27/22 04:20 BUN 21 mg/dL (7-18) H 02/27/22 04:20 Creatinine 1.52 mg/dL (0.70-1.30) H 02/27/22 04:20 Est GFR (MDRD) Af Amer 57 (>60) L 02/27/22 04:20 Est GFR (MDRD) Non-Af 47 (>60) L 02/27/22 04:20 Glucose 163 mg/dL (65-99) H 02/27/22 04:20 POC Glucose (mg/dL) 204 mg/dL (65-99) H 02/27/22 11:14 Calcium 8.7 mg/dL (8.5-10.1) 02/27/22 04:20 Corrected Calcium 10.0 mg/dL (8.5-10.1) 02/27/22 04:20 Total Bilirubin 0.50 mg/dL (0.2-1.0) 02/27/22 04:20 AST 16 Units/L (15-37) 02/27/22 04:20 ALT 22 Units/L (12-78) 02/27/22 04:20 Alkaline Phosphatase 65 Units/L (46-116) 02/27/22 04:20 Creatine Kinase 35 Units/L (39-308) L 02/25/22 09:54 CK-MB (CK-2) 1.5 ng/mL (0-4.0) 02/25/22 09:54 CK/CKMB % Calc 4.3 % (<4) 02/25/22 09:54 Troponin I High Sens 11.3 ng/L (4.0-60.0) 02/25/22 09:54 Total Protein 6.2 g/dL (6.4-8.2) L 02/27/22 04:20 Albumin 2.4 g/dL (3.4-5.0) L 02/27/22 04:20 Globulin 3.8 g/dL (2.5-4.5) 02/27/22 04:20 Albumin/Globulin Ratio 0.6 Ratio (1.1-2.1) L 02/27/22 04:20 SARS-CoV-2 (PCR) Negative (NEGATIVE) 02/25/22 03:21 - Plan (1) Pneumothorax on left Status: Acute Plan: NORMAL SALINE AT 75 ML/HR, DOXYCYCLINE 100MG IV BID, LEVAQUIN 250MG IV DAILY, XOPENEX NEB TX, LOVENOX 30MG SC DAILY, MORPHINE 2MG IV Q4H PRN, AND HIS HOME MEDICATIONS WERE RESUMED WITH THE EXCEPTION OF HIS TRIAMTERENE-HCTZ (2) Pneumonia Status: Acute Qualifiers: Pneumonia type: due to unspecified organism Laterality: left Lung location: lower lobe of lung Qualified Code(s): J18.9 - Pneumonia, unspecified organism (3) Multiple rib fractures Status: Acute Qualifiers: Encounter type: initial encounter Fracture type: closed Laterality: left Qualified Code(s): S22.42XA - Multiple fractures of ribs, left side, initial encounter for closed fracture (4) Dehydration Status: Acute (5) Hypertension Status: Chronic Qualifiers: Hypertension type: primary hypertension Qualified Code(s): I10 - Essential (primary) hypertension
[2022-02-27] MEDS: CRESTOR TAB 10 MG PO SCH (21:00)
[2022-02-27] MEDS: ANTIVERT TAB 25 MG PO SCH (21:00)
[2022-02-28] MEDS: NS 1,000 ML IV 1,000 ML IV SCH ×2 (05:08→08:52)
[2022-02-28 05:23] LABS: BASOPHILS % (AUTO) 0.1 % (0.2-1.0); EOSINOPHILS # (AUTO) 0.1 x10^3/uL (0.0-0.2); EOSINOPHILS % (AUTO) 1.6 % (0.9-2.9); HEMATOCRIT 35.9 % (42.0-54.0); HEMOGLOBIN 12.7 g/dL (13.5-18.0); LYMPHOCYTES # (AUTO) 0.3 X10^3/uL (1.3-2.9); LYMPHOCYTES % (AUTO) 5.7 % (21.0-51.0); MEAN CORPUSCULAR HEMOGLOBIN 32.3 pg (27.0-34.0); MEAN CORPUSCULAR HGB CONC 35.2 g/dL (33.0-35.0); MEAN CORPUSCULAR VOLUME 91.5 fL (80.0-100.0); MEAN PLATELET VOLUME 8.1 fL (7.4-11.0); MONOCYTES # (AUTO) 0.4 x10^3/uL (0.3-0.8); MONOCYTES % (AUTO) 7.7 % (0.0-13.0); NEUTROPHILS # (AUTO) 4.4 x10^3/uL (2.2-4.8); NEUTROPHILS % (AUTO) 84.9 % (42.0-75.0); RED BLOOD COUNT 3.92 X10^6/uL (4.7-6.0); RED CELL DISTRIBUTION WIDTH 14.8 % (11.6-16.5); WHITE BLOOD COUNT 5.1 X10^3/uL (3.6-10.0)
[2022-02-28] MEDS: APRESOLINE TAB 25 MG PO SCH ×2 (05:25→13:01)
[2022-02-28 05:29] LABS: ALANINE AMINOTRANSFERASE 21 Units/L (12-78); ALBUMIN 2.5 g/dL (3.4-5.0); ALKALINE PHOSPHATASE 64 Units/L (46-116); ASPARTATE AMINO TRANSFERASE 15 Units/L (15-37); BLOOD UREA NITROGEN 16 mg/dL (7-18); CALCIUM 8.9 mg/dL (8.5-10.1); CARBON DIOXIDE 22.8 mmol/L (21-32); CHLORIDE 106 mmol/L (98-107); COR CA(FOR HYPOALB) 10.1 mg/dL (8.5-10.1); COR NA(FOR HYPERGLY) 139 mmol/L (136-145); CREATININE 1.41 mg/dL (0.70-1.30); SODIUM 138 mmol/L (136-145); TOTAL PROTEIN 6.2 g/dL (6.4-8.2); eGFR NON BLACK RACES 51 (>60)
[2022-02-28] MEDS: XOPENEX 1.25 MG/3 ML NEBULE NEB SCH (05:40)
--- NOTE | 2022-02-28 06:07 | RAD ---
HISTORYShortness of breath, follow-up pneumothoraxSTUDYChest AP [id number] ent is status post median sternotomy and CABG. Heart remains enlarged. No congestive heart failure is noted. Aorta is calcified, ectatic and the arch dilated stable when compared with the prior examination. There has been a slight decrease in the size of the left pneumothorax being followed. Increased density remains present in the retrocardiac area of the left lower lobe obscuring the left hemidiaphragm. This could be due to infiltrate atelectasis or combination. Remainder of the lung baird are clear. Bony thorax is unremarkable.IMPRESSIONSlight decrease in size of the left pneumothorax being followedNo change cardiomegaly without congestive heart failureNo change increased density retrocardiac area left lower lobe obscuring the left elda-diaphragm which could be on the basis of atelectasis, infiltrate or combination.Electronically signed by: LORIE SAAVEDRA (Feb 28, 2022 06:05:47)
[2022-02-28] MEDS ORDERED: KLOR-CON PO PRN (07:25)
[2022-02-28] MEDS ORDERED: K-RIDER 10 MEQ/NS 100 ML 10 MEQ/100 ML BAG IV PRN (07:25)
[2022-02-28] MEDS ORDERED: MICRO K EXTEN CAP 10 MEQ PO PRN (07:25)
[2022-02-28] MEDS ORDERED: POTASSIUM CHL 60 MEQ/NS 0.45% 500 ML IV PRN (07:25)
[2022-02-28] MEDS ORDERED: K-DUR TAB 20 MEQ PO PRN (07:25)
[2022-02-28] MEDS ORDERED: POTASSIUM CHL 40 MEQ/NS 0.45% 500 ML IV PRN (07:25)
[2022-02-28] MEDS ORDERED: POTASSIUM CHLORIDE LIQ 20 MEQ UDC PO PRN (07:25)
[2022-02-28] MEDS ORDERED: NORVASC TAB 2.5 MG ONE (08:47)
[2022-02-28] MEDS: ARICEPT TAB 5 MG PO SCH (08:52)
[2022-02-28] MEDS: CYMBALTA PO SCH (08:53)
[2022-02-28] MEDS: ASPIRIN EC 81 MG PO SCH (08:53)
[2022-02-28] MEDS: CARDIZEM CD 120 MG 24-HR PO SCH (08:53)
[2022-02-28] MEDS: MIRABEGRON 50 MG PO SCH (08:53)
[2022-02-28] MEDS: EXELON PATCH TD SCH (08:54)
[2022-02-28] MEDS: LEVAQUIN PREMIX IV 250 MG 250 MG/50 ML BAG IV SCH (08:54)
[2022-02-28] MEDS: FLOMAX PO SCH (08:54)
[2022-02-28] MEDS: LOPRESSOR TAB 50 MG PO SCH (08:55)
[2022-02-28] MEDS: MEGACE PO SCH (08:55)
[2022-02-28] MEDS: LOVENOX INJ 30 MG SYR SC SCH (08:55)
[2022-02-28] MEDS: PriLOSEC PO SCH (08:56)
[2022-02-28] MEDS: SINGULAIR TAB 10 MG PO SCH (08:56)
[2022-02-28] MEDS: NORVASC TAB 2.5 MG PO SCH (08:56)
[2022-02-28] MEDS: MICRO K EXTEN CAP 10 MEQ PO SCH (08:56)
[2022-02-28] MEDS: ATIVAN TAB 1 MG PO PRN (08:57)
[2022-02-28] MEDS: VIBRAMYCIN 100 MG in D5W 250 ML IV 250 ML IV SCH (08:57)
[2022-02-28] MEDS ORDERED: LASIX PO SCH (09:00)
[2022-02-28] MEDS ORDERED: ULTRAM PO PRN (12:50)
[2022-02-28 13:03] VITALS: BP 175/96
== END 2022-02-28 13:30 | disposition home health service (06) ==
LOC: ER 22:38 → MED/SURG 22:38 → ER 02-25 00:35 → MED/SURG 02-25 03:43 → ICU 02-25 09:19
PROVIDERS: ADMIT Internal Medicine; ATTEND Surgery
DX: E86.0 Dehydration; R42 Dizziness and giddiness; S27.0XXA Traumatic pneumothorax, initial encounter; R26.89 Other abnormalities of gait and mobility; J98.11 Atelectasis; R53.1 Weakness; R41.82 Altered mental status, unspecified; I10 Essential (primary) hypertension; I25.10 Atherosclerotic heart disease of native coronary artery without angina pectoris; S20.212A Contusion of left front wall of thorax, initial encounter; E78.2 Mixed hyperlipidemia; R06.02 Shortness of breath; K21.9 Gastro-esophageal reflux disease without esophagitis; S22.42XA Multiple fractures of ribs, left side, initial encounter for closed fracture; Z20.822 Contact with and (suspected) exposure to COVID-19; W18.09XA Striking against other object with subsequent fall, initial encounter

== ENCOUNTER 2022-03-05 12:22 | Observation (INO) ==
[2022-03-05 12:41] VITALS: BMI 25.8
--- NOTE | 2022-03-05 13:12 | DR.GENAD ---
HPI Time Seen Time Seen by Provider: 03/05/22 13:11 PCP Primary Care Physician: YODIT Complaint/Symptoms Chief Complaint Doctors Comments: CONSTIPATION FOR 3 DAYS. RECENTLY DISCHARGED FROM THE HOSPITAL. NOW C/O OF ABDOMINAL DISTENTION. Chief Complaint:: PT. WAS JUST RECENTLY DISCHARGED FROM THE HOSPITAL. PT. C/O ABDOMINAL PAIN AND TENDERNESS X 3 DAYS WELL ABDOMINAL DISTENTION. PT. HAS BEEN TAKING ORAL PAIN MEDICATION AT HOME SINCE D/C FROM HOSPITAL. LAST BOWEL MOVEMENT WAS 2-3 DAYS AGO BUT WAS VERY SMALL. COVID-19 Coronavirus risk:travel/contact w/high risk person: No Has patient experienced Coronavirus symptoms: No Source History Provided: Patient and EMS Mode of Arrival Mode of Arrival: EMS Timing Onset of Chief Complaint: 03/02/22 PMH PMH Past Medical History: Yes Past Medical History: Arthritis, CHF, Coronary Artery Disease, Depression, Dyslipidemia, GERD and Hypertension Past Surgical History: Yes Surgical History: CABG/Valve Surgery and Other Family History History of Family Medical Conditions: Yes Family Medical History: DC, Coronary Artery Disease, Heart Failure and Hypertension Social History Does patient currently use any type of tobacco product: No Have you used tobacco products in the last 12 months: No Type of Tobacco Use: None Does any household member use tobacco: No Alcohol Use: None Do you use any recreational Drugs:: No Lives With: Family Lives Where: Home Travel Risk Coronavirus risk:travel/contact w/high risk person: No Has patient experienced Coronavirus symptoms: No Infectious screening In the last 2 months have you had wt loss of >10#?: NO Have you had fever, night sweats or hemotysis?: No Have you traveled outside the country in the last 6 months?: No Isolation: Standard ROS Review of Systems Constitutional: Other (CONSTIPATION) Eyes: No Symptoms Reported ENTM: No Symptoms Reported Respiratoy: No Symptoms Reported Cardiovascular: No Symptoms Reported Gastrointestinal/Abdominal: Constipation Genitourinary: No Symptoms Reported Neurological: No Symptoms Reported Musculoskeletal: No Symptoms Reported Integumentary: No Symptoms Reported Hematologic/Lymphatic: No Symptoms Reported Endocrine: No Symptoms Reported Psychiatric: No Symptoms Reported All Other Systems: Reviewed and Negative PE Vital Signs Vitals: Temperature 97.6 F Pulse Rate 62 Respiratory Rate 17 Blood Pressure [Right Arm] 148/78 Blood Pressure [Left Arm] 179/95 Blood Pressure [Standing] 144/83 Blood Pressure [Sitting] 179/96 Blood Pressure [Lying] 166/87 Blood Pressure 131/69 O2 Sat by Pulse Oximetry 93 General Limitations: No Limitations General Appearance: Alert and In No Apparent Distress Head Head Exam: Normal Inspection Eyes Eye exam: Normal Appearance ENT ENT Exam: Normal Exam External Ear Exam: Normal External Inspection TM/Canal Exam: Bilateral: Normal Nose Exam: Normal Nose Exam Mouth Exam: Normal Inspection Throat Exam: Normal Inspection Neck Neck Exam: Normal Inspection Chest Chest Inspection: Normal Inspection Respiratory Respiratory Exam: Normal Lung Sounds Bilat Respiratory Exam: Bilateral: Clear to Auscultation Cardiovascular Cardiovascular Exam: Regular Rate and Normal Rhythm Abdominal Exam Abdominal Exam: Normal Bowel Sounds, Soft and Other (SLIGHT ABDOMINAL DISTENTION BUT NOT RIGID) Extremities Extremities Exam: Normal Inspection Back Back Exam: Normal Inspection Neurologic Neurological Exam: Alert and Oriented X3 Psychiatric Psychiatric Exam: Normal Affect and Normal Mood Skin Skin Exam: Warm, Dry, Intact and Normal Color MDM Additional Information Findings: CONSTIPATION Differential Diagnosis Differential Diagnosis: CONSTIPATION,BOWEL OBSTRUCTION COURSE Treatment Treatment: PATIENT REMAINED RELATIVELY STABLE DURING ER EVALUATION. WAS FOUND ON CT SCAN OF ABDOMEN AND PELVIS TO BE CONSTIPATED AND THER IS A LESION ON THE DISTAL SIDE IF THE DESCENDING COLON(COULD BE A MASS AND NEEDS FURTHER EVALUATION BY COLONOSCOPY) NURSE SPOKE TO DR MONSIVAIS AND STATED TO REFER THE PATIENT TO OBSERVATION FOR OBSTIPATION AND GENERALYZED WEAKNESS. PATIENT AND PATIENT'S DAUGHTER WERE MADE AWARE OF THE INTENT AND WAS AGREABLE TO THE PLAN. ROR Labs Reviewed Laboratory Results Reviewed?: Yes Result Diagrams: 03/05/22 13:00 03/05/22 13:00 Laboratory: WBC 6.8 X10^3/uL (3.6-10.0) 03/05/22 13:00 RBC 3.92 X10^6/uL (4.7-6.0) L 03/05/22 13:00 Hgb 12.8 g/dL (13.5-18.0) L 03/05/22 13:00 Hct 36.1 % (42.0-54.0) L 03/05/22 13:00 MCV 92.1 fL (80.0-100.0) 03/05/22 13:00 MCH 32.6 pg (27.0-34.0) 03/05/22 13:00 MCHC 35.4 g/dL (33.0-35.0) H 03/05/22 13:00 RDW 14.6 % (11.6-16.5) 03/05/22 13:00 Plt Count 222 X10^3/uL (150.0-450.0) 03/05/22 13:00 MPV 7.6 fL (7.4-11.0) 03/05/22 13:00 Neut % (Auto) 82.8 % (42.0-75.0) H 03/05/22 13:00 Lymph % (Auto) 7.4 % (21.0-51.0) L 03/05/22 13:00 Kendall % (Auto) 6.3 % (0.0-13.0) 03/05/22 13:00 Eos % (Auto) 3.2 % (0.9-2.9) H 03/05/22 13:00 Baso % (Auto) 0.3 % (0.2-1.0) 03/05/22 13:00 Neut # (Auto) 5.7 x10^3/uL (2.2-4.8) H 03/05/22 13:00 Lymph # (Auto) 0.5 X10^3/uL (1.3-2.9) L 03/05/22 13:00 [place]all # (Auto) 0.4 x10^3/uL (0.3-0.8) 03/05/22 13:00 Eos # (Auto) 0.2 x10^3/uL (0.0-0.2) 03/05/22 13:00 Baso # (Auto) 0.0 X10^3/uL (0.0-0.1) 03/05/22 13:00 Absolute Nucleated RBC 0.1 /100WBC 03/05/22 13:00 Sodium 135 mmol/L (136-145) L 03/05/22 13:00 Corrected Sodium 135 mmol/L (136-145) L 03/05/22 13:00 Potassium 3.5 mmol/L (3.5-5.1) 03/05/22 13:00 Chloride 103 mmol/L (98-107) 03/05/22 13:00 Carbon Dioxide 24.3 mmol/L (21-32) 03/05/22 13:00 BUN 25 mg/dL (7-18) H 03/05/22 13:00 Creatinine 1.75 mg/dL (0.70-1.30) H 03/05/22 13:00 Est GFR (MDRD) Af Amer 48 (>60) L 03/05/22 13:00 Est GFR (MDRD) Non-Af 40 (>60) L 03/05/22 13:00 Glucose 119 mg/dL (65-99) H 03/05/22 13:00 Calcium 8.9 mg/dL (8.5-10.1) 03/05/22 13:00 Corrected Calcium 9.8 mg/dL (8.5-10.1) 03/05/22 13:00 Total Bilirubin 0.50 mg/dL (0.2-1.0) 03/05/22 13:00 AST 22 Units/L (15-37) 03/05/22 13:00 ALT 34 Units/L (12-78) 03/05/22 13:00 Alkaline Phosphatase 74 Units/L (46-116) 03/05/22 13:00 Total Protein 6.6 g/dL (6.4-8.2) 03/05/22 13:00 Albumin 2.9 g/dL (3.4-5.0) L 03/05/22 13:00 Globulin 3.7 g/dL (2.5-4.5) 03/05/22 13:00 Albumin/Globulin Ratio 0.8 Ratio (1.1-2.1) L 03/05/22 13:00 SARS-CoV-2 (PCR) Negative (NEGATIVE) 03/05/22 15:25 Opioid Opioid Risk Tool Age (Ankur box if 16-45): No History of Preadolescent Sexual Abuse: No Total: 0 Total Score Risk Category: Low Risk Copyright: Denzel ANN predicting aberrant behaviors Diagnosis Discharge Problem: Cachexia, Mass of colon Constipation Qualifiers: Qualified Code(s): K59.00 - Constipation, unspecified Instructions Forms: Precautions for COVID19 [facility] Social Distancing
[2022-03-05 13:30] LABS: BASOPHILS % (AUTO) 0.3 % (0.2-1.0); EOSINOPHILS # (AUTO) 0.2 x10^3/uL (0.0-0.2); EOSINOPHILS % (AUTO) 3.2 % (0.9-2.9); HEMATOCRIT 36.1 % (42.0-54.0); HEMOGLOBIN 12.8 g/dL (13.5-18.0); LYMPHOCYTES # (AUTO) 0.5 X10^3/uL (1.3-2.9); LYMPHOCYTES % (AUTO) 7.4 % (21.0-51.0); MEAN CORPUSCULAR HEMOGLOBIN 32.6 pg (27.0-34.0); MEAN CORPUSCULAR HGB CONC 35.4 g/dL (33.0-35.0); MEAN CORPUSCULAR VOLUME 92.1 fL (80.0-100.0); MEAN PLATELET VOLUME 7.6 fL (7.4-11.0); MONOCYTES # (AUTO) 0.4 x10^3/uL (0.3-0.8); MONOCYTES % (AUTO) 6.3 % (0.0-13.0); NEUTROPHILS # (AUTO) 5.7 x10^3/uL (2.2-4.8); NEUTROPHILS % (AUTO) 82.8 % (42.0-75.0); RED BLOOD COUNT 3.92 X10^6/uL (4.7-6.0); RED CELL DISTRIBUTION WIDTH 14.6 % (11.6-16.5); WHITE BLOOD COUNT 6.8 X10^3/uL (3.6-10.0)
[2022-03-05 13:50] LABS: ALBUMIN 2.9 g/dL (3.4-5.0); CALCIUM 8.9 mg/dL (8.5-10.1); CARBON DIOXIDE 24.3 mmol/L (21-32); COR CA(FOR HYPOALB) 9.8 mg/dL (8.5-10.1); CREATININE 1.75 mg/dL (0.70-1.30); TOTAL PROTEIN 6.6 g/dL (6.4-8.2)
--- NOTE | 2022-03-05 13:50 | CT ---
HISTORYAbdominal pain and tenderness, abdominal distensionSTUDYCT abdomen pelvis without contrastTechnique: Axial noncontrast images with coronal and sagittal reformats. Dose reduction procedures were used with mA/kv adjusted for body size. This examination is limited due to the lack of intravenous and oral contrast. The examination was performed in this manner at the sole discretion of the ordering caregiver.[id number] lateral small pleural effusions are present left slightly larger than right. The right lung base is free of acute infiltrates. There are some atelectatic changes in the left lung base. There is visualization of the patient's known left basilar pneumothorax. The heart is enlarged. The liver, spleen, adrenal glands, and pancreas are within normal limits only to the limitations of an unenhanced examination. No opaque stones are present within the gallbladder. The kidneys are unobstructed and without stones. Left kidney is atrophic. No ureteral calculi are identified. The appendix is normal. Calcific atherosclerotic changes present in an ectatic but not significantly dilated abdominal aorta and common iliac arteries. No intraperitoneal or retroperitoneal lymphadenopathy of significance is identified. There are no findings suggestive of enteritis, colitis, or diverticulitis. There is a large amount of stool within the colon from cecum to proximal descending colon. Distal to that point there is very little gas and stool present. The area of transition is best visualized on coronal series 9, image 31. Stricture or neoplasm may be present. Correlation with colonoscopy or air-contrast barium enema is recommended. Examination of the pelvis demonstrated no evidence for pelvic masses, pelvic fluid, or pelvic lymphadenopathy. No definite bladder abnormality is identified. No lytic or blastic skeletal lesions of significance are identified. The bones are osteopenic. There are old healed fractures of the right superior and inferior pubic rami.IMPRESSIONVisualization of the patient's known left basilar pneumothoraxCardiomegaly without congestive heart failureBilateral small pleural effusions left greater than rightAtelectatic change in the retrocardiac area of the left lower lobeLarge amount of stool throughout the colon from the cecum to the proximal descending colon where there is an area of luminal narrowing distal to which the colon is collapsed with very little air or fluid present. A stricture or neoplasm in the proximal descending colon not excluded. Evaluation with colonoscopy or air-contrast barium enema would be of further diagnostic value.Electronically signed by: LORIE SAAVEDRA (Mar 05, 2022 13:48:28)
[2022-03-05] MEDS: NS 1,000 ML IV 1,000 ML IV SCH (17:50)
[2022-03-05] MEDS: LASIX PO SCH (18:39)
[2022-03-05] MEDS: CIPRO TAB 500 MG PO SCH (20:11)
[2022-03-05] MEDS: COLACE CAP 100 MG PO SCH (20:11)
[2022-03-05] MEDS: MEGACE PO SCH (20:12)
[2022-03-05] MEDS: LOPRESSOR TAB 50 MG PO SCH (20:12)
[2022-03-05] MEDS: CRESTOR TAB 10 MG PO SCH (20:12)
[2022-03-05] MEDS: ULTRAM PO PRN (20:12)
[2022-03-05] MEDS: MILK OF MAGNESIA PO SCH (20:12)
[2022-03-05] MEDS: MIRALAX POWDER (1 DOSE 17 G) PO SCH (20:12)
[2022-03-05] MEDS: MORPHINE SULFATE INJ 2 MG INJ IVP PRN (21:51)
[2022-03-06] MEDS: NS 1,000 ML IV 1,000 ML IV SCH ×4 (01:11→17:02)
[2022-03-06] MEDS: MORPHINE SULFATE INJ 2 MG INJ IVP PRN (02:15)
--- NOTE | 2022-03-06 02:22 | RAD ---
STUDY: FRONTAL VIEW CHESTCOMPARISON: 10/31/2021HISTORY: PT C/O OF INCREASED CHEST TENDERNESSFINDINGS:Status post midline sternotomy. No gross evidence of pneumothorax. No left-sided pleural effusion is seen.No focal consolidation is seen.The heart size is enlarged with findings suggesting mild degree of pulmonary edema. This is similar in appearance to the prior examination with interval worsening of a small right pleural effusion.The mediastinum is unremarkable.The trachea is midline.IMPRESSION:Stable cardiomegaly with findings suggesting mild degree of pulmonary edema and slight worsening small right pleural effusionElectronically signed by: Abraham Montez (Mar 06, 2022 02:20:46)
[2022-03-06 04:33] LABS: BASOPHILS % (AUTO) 0.2 % (0.2-1.0); EOSINOPHILS # (AUTO) 0.2 x10^3/uL (0.0-0.2); HEMATOCRIT 34.8 % (42.0-54.0); HEMOGLOBIN 12.5 g/dL (13.5-18.0); LYMPHOCYTES # (AUTO) 0.3 X10^3/uL (1.3-2.9); LYMPHOCYTES % (AUTO) 6.5 % (21.0-51.0); MEAN CORPUSCULAR HEMOGLOBIN 32.9 pg (27.0-34.0); MEAN CORPUSCULAR HGB CONC 35.9 g/dL (33.0-35.0); MEAN CORPUSCULAR VOLUME 91.8 fL (80.0-100.0); MEAN PLATELET VOLUME 7.6 fL (7.4-11.0); MONOCYTES # (AUTO) 0.4 x10^3/uL (0.3-0.8); MONOCYTES % (AUTO) 7.5 % (0.0-13.0); NEUTROPHILS # (AUTO) 4.3 x10^3/uL (2.2-4.8); NEUTROPHILS % (AUTO) 81.8 % (42.0-75.0); RED BLOOD COUNT 3.79 X10^6/uL (4.7-6.0); RED CELL DISTRIBUTION WIDTH 14.5 % (11.6-16.5); WHITE BLOOD COUNT 5.3 X10^3/uL (3.6-10.0)
[2022-03-06 04:53] LABS: ALBUMIN 2.5 g/dL (3.4-5.0); CALCIUM 8.3 mg/dL (8.5-10.1); CARBON DIOXIDE 26.4 mmol/L (21-32); COR CA(FOR HYPOALB) 9.5 mg/dL (8.5-10.1); CREATININE 1.63 mg/dL (0.70-1.30); TOTAL PROTEIN 5.8 g/dL (6.4-8.2)
[2022-03-06] MEDS ORDERED: KLOR-CON PO PRN (05:25)
[2022-03-06] MEDS ORDERED: POTASSIUM CHLORIDE LIQ 20 MEQ UDC PO PRN (05:25)
[2022-03-06] MEDS ORDERED: MICRO K EXTEN CAP 10 MEQ PO PRN (05:25)
[2022-03-06] MEDS ORDERED: POTASSIUM CHL 40 MEQ/NS 0.45% 500 ML IV PRN (05:25)
[2022-03-06] MEDS ORDERED: POTASSIUM CHL 60 MEQ/NS 0.45% 500 ML IV PRN (05:25)
[2022-03-06] MEDS ORDERED: K-DUR TAB 20 MEQ PO PRN (05:25)
--- NOTE | 2022-03-06 06:27 | RAD ---
HISTORYFollow-up [id number]/07/2022 , CT abdomen pelvis 03/05/2022FINDINGSThe abdominal gas pattern is nonspecific. Stool is visualized within the cecum, ascending, and proximal descending colon. No small bowel dilatation is identified. No abnormal masses or abnormal calcifications are identified. Once again visualized is the patient's known left basilar pneumothorax. Regional skeleton is osteopenic but intact.IMPRESSIONNonspecific bowel gas patternRe-demonstrated is the patient's known left basilar pneumothoraxElectronically signed by: LORIE SAAVEDRA (Mar 06, 2022 06:25:26)
[2022-03-06] MEDS ORDERED: NORVASC TAB 2.5 MG ONE (08:49)
[2022-03-06] MEDS: ARICEPT TAB 5 MG PO SCH (08:58)
[2022-03-06] MEDS: NORVASC TAB 2.5 MG PO SCH (08:59)
[2022-03-06] MEDS: ASPIRIN EC 81 MG PO SCH (08:59)
[2022-03-06] MEDS: CARDIZEM CD 120 MG 24-HR PO SCH (09:00)
[2022-03-06] MEDS: CIPRO TAB 500 MG PO SCH ×2 (09:00→20:38)
[2022-03-06] MEDS: CYMBALTA PO SCH (09:01)
[2022-03-06] MEDS: COLACE CAP 100 MG PO SCH ×2 (09:01→20:38)
[2022-03-06] MEDS: DETROL LA 4 MG CAP EXT REL PO SCH (09:03)
[2022-03-06] MEDS: FLOMAX PO SCH (09:04)
[2022-03-06] MEDS: LOPRESSOR TAB 50 MG PO SCH ×2 (09:04→20:39)
[2022-03-06] MEDS: LASIX PO SCH (09:04)
[2022-03-06] MEDS: MEGACE PO SCH ×2 (09:05→20:39)
[2022-03-06] MEDS: MAXZIDE 37.5/25 MG PO SCH (09:05)
[2022-03-06] MEDS: MICRO K EXTEN CAP 10 MEQ PO SCH (09:05)
[2022-03-06] MEDS: MILK OF MAGNESIA PO SCH ×4 (09:06→20:39)
[2022-03-06] MEDS: MOBIC TAB 15 MG PO SCH (09:06)
[2022-03-06] MEDS: PriLOSEC PO SCH (09:07)
[2022-03-06] MEDS ORDERED: DULCOLAX TAB EC 5 MG PO ONE (09:13)
[2022-03-06] MEDS: LOVENOX INJ 40 MG SYR SC SCH (09:43)
[2022-03-06] MEDS: MAGNESIUM SULFATE 1 GRAM/100 mL PREMIX 1 G/100 ML BAG IV PRN ×2 (11:22→12:45)
[2022-03-06 13:44] LABS: CRYPTOSPORIDIUM PARVUM ANTIGEN NEGATIVE (NEGATIVE); GIARDIA LAMBLIA ANTIGEN NEGATIVE (NEGATIVE)
[2022-03-06] MEDS: K-RIDER 10 MEQ/NS 100 ML 10 MEQ/100 ML BAG IV PRN ×2 (16:02→17:02)
--- NOTE | 2022-03-06 17:16 | DR.UPDATE ---
H&P Update History and Physical Update: History and Physical reviewed and patient examined. Changes noted: Yes with the following: WAS RECENTLY HOSPITALIZED FROM 02/25/22-02/28/22 FOR TREATMENT OF PNEUMOTHORAX, PNEUMONIA, AND MULTIPLE RIB FRACTURES FOLLOWING A FALL. HE WAS SENT HOME WITH RX FOR CIPRO 500MG PO BID, NEBULIZER TREATMENTS, AND PAIN MEDICATIONS. HIS DAUGHTER BROUGHT HIM BACK TO THE ER YESTERDAY DUE TO COMPLAINTS OF ABDOMINAL TENDERNESS, PAIN, AND DISTENTION. THEY REPORT THAT HIS LAST BOWEL MOVEMENT WAS 3-4 DAYS AGO, BUT WAS A VERY SMALL AMOUNT. HE HAS BEEN TAKING ORAL PAIN MEDICATIONS SINCE HE RETURNED HOME. HIS DAUGHTER ALSO REPORTS THAT HE HAS BEEN VERY WEAK, HAS HAD AN UNSTEADY GAIT, AND HAS BEEN UNABLE TO PERFORM ADLs WITHOUT MODERATE ASSISTANCE. EXAMINATION REVEALED SLIGHT ABDOMINAL DISTENTION AND HYPERACTIVE BOWEL SOUNDS. ON ARRIVAL TO THE ER, VITALS WERE: 97.6-62-17-93%-131/69. LABS WERE OBTAINED. WBC 6.8, RBC 3.92, HGB 12.8, HCT 36.1, PLT COUNT 222, SODIUM 135, POTASSIUM 3.5, BUN 25, CREATININE 1.75, GLUCOSE 119, AST 22, ALT 34, ALK PHOS 74, TOTAL PROTEIN 6.6, ALBUMIN 2.9. COVID-19 NEGATIVE. STOOL STUDIES NEGATIVE. AN ABDOMEN/PELVIS CT WITHOUT CONTRAST WAS OBTAINED AND REVEALED: Visualization of the patient's known left basilar pneumothorax. Cardiomegaly without congestive heart failure. Bilateral small pleural effusions left greater than right. Atelectatic change in the retrocardiac area of the left lower lobe. Large amount of stool throughout the colon from the cecum to the proximal descending colon where there is an area of luminal narrowing distal to which the colon is collapsed with very little air or fluid present. A stricture or neoplasm in the proximal descending colon not excluded. Evaluation with colonoscopy or air-contrast barium enema would be of further diagnostic value. A CHEST XRAY WAS OBTAINED AND REVEALED: Stable cardiomegaly with findings suggesting mild degree of pulmonary edema and slight worsening small right pleural effusion. WE ADMITTED PATIENT TO THE HOSPITAL FOR FURTHER EVALUATION AND TREATMENT OF ABDOMINAL PAIN, CONSTIPATION, GENERALIZED WEAKNESS, AND CACHEXIA. HE WAS STARTED ON CIPRO 500MG PO BID, NEBULIZER TREATMENTS, LOVENOX 40MG SQ DAILY, MILK OF MAGNESIA 15ML QID, COLACE 100MG BID, MIRALAX 17G PO HS, MORPHINE SULFATE 1-2MG IV Q4H PRN PAIN THE POTASSIUM AND MAGNESIUM PROTOCOLS, AND HIS HOME MEDICATIONS WERE RESUMED. WE WILL ADMINISTER A SOAP SUDS ENEMA ON ADMISSION. WE WILL CONSULT , GENERAL SURGEON, FOR POSSIBLE COLONOSCOPY. WE WILL HAVE PHYSICAL THERAPY EVALUATE PATIENT. OTHERWISE, WE PLAN TO FOLLOW-UP WITH AM LABS AND KUB AND CONTINUE TO MONITOR. TIME SPENT ON CLINICAL ASSESSMENT, REVIEWING LABS AND IMAGING, DECISION MAKING, AND DOCUMENTATION GREATER THAN 75 MINUTES. H&P Reviewed: Yes Patient was examined?: Yes
[2022-03-06] MEDS ORDERED: XOPENEX 1.25 MG/3 ML NEBULE NEB ONE (19:57)
[2022-03-06] MEDS: CRESTOR TAB 10 MG PO SCH (20:39)
[2022-03-06] MEDS: XANAX PO PRN (20:40)
[2022-03-06] MEDS: MIRALAX POWDER (1 DOSE 17 G) PO SCH (20:40)
[2022-03-06] MEDS: XOPENEX 1.25 MG/3 ML NEBULE NEB SCH (21:00)
[2022-03-06] MEDS: RESTORIL CAP 15 MG PO PRN (21:57)
[2022-03-07] MEDS: NS 1,000 ML IV 1,000 ML IV SCH ×3 (00:26→18:30)
[2022-03-07 04:27] LABS: BASOPHILS % (AUTO) 0.7 % (0.2-1.0); EOSINOPHILS # (AUTO) 0.2 x10^3/uL (0.0-0.2); EOSINOPHILS % (AUTO) 3.4 % (0.9-2.9); HEMATOCRIT 37.7 % (42.0-54.0); HEMOGLOBIN 13.2 g/dL (13.5-18.0); LYMPHOCYTES # (AUTO) 0.3 X10^3/uL (1.3-2.9); LYMPHOCYTES % (AUTO) 6.1 % (21.0-51.0); MEAN CORPUSCULAR HEMOGLOBIN 32.3 pg (27.0-34.0); MEAN CORPUSCULAR HGB CONC 35.1 g/dL (33.0-35.0); MEAN CORPUSCULAR VOLUME 92.1 fL (80.0-100.0); MEAN PLATELET VOLUME 7.7 fL (7.4-11.0); MONOCYTES # (AUTO) 0.3 x10^3/uL (0.3-0.8); MONOCYTES % (AUTO) 5.7 % (0.0-13.0); NEUTROPHILS # (AUTO) 4.2 x10^3/uL (2.2-4.8); NEUTROPHILS % (AUTO) 84.1 % (42.0-75.0); RED BLOOD COUNT 4.09 X10^6/uL (4.7-6.0); RED CELL DISTRIBUTION WIDTH 14.9 % (11.6-16.5)
[2022-03-07 04:45] LABS: ALBUMIN 2.6 g/dL (3.4-5.0); CALCIUM 8.5 mg/dL (8.5-10.1); CARBON DIOXIDE 27.5 mmol/L (21-32); COR CA(FOR HYPOALB) 9.6 mg/dL (8.5-10.1); CREATININE 1.45 mg/dL (0.70-1.30); MAGNESIUM 2.6 mg/dL (1.7-2.9); TOTAL PROTEIN 6.2 g/dL (6.4-8.2)
[2022-03-07] MEDS ORDERED: NORVASC TAB 2.5 MG ONE (08:33)
[2022-03-07] MEDS: ASPIRIN EC 81 MG PO SCH (08:38)
[2022-03-07] MEDS: CARDIZEM CD 120 MG 24-HR PO SCH (08:39)
[2022-03-07] MEDS: CIPRO TAB 500 MG PO SCH ×2 (08:39→21:29)
[2022-03-07] MEDS: NORVASC TAB 2.5 MG PO SCH (08:39)
[2022-03-07] MEDS: CYMBALTA PO SCH (08:40)
[2022-03-07] MEDS: COLACE CAP 100 MG PO SCH ×2 (08:40→21:30)
[2022-03-07] MEDS: FLOMAX PO SCH (08:41)
[2022-03-07] MEDS: MAXZIDE 37.5/25 MG PO SCH (08:41)
[2022-03-07] MEDS: DETROL LA 4 MG CAP EXT REL PO SCH (08:41)
[2022-03-07] MEDS: LOPRESSOR TAB 50 MG PO SCH ×2 (08:42→21:31)
[2022-03-07] MEDS: LASIX PO SCH (08:42)
[2022-03-07] MEDS: MEGACE PO SCH ×2 (08:43→21:31)
[2022-03-07] MEDS: MICRO K EXTEN CAP 10 MEQ PO SCH (08:43)
[2022-03-07] MEDS: MOBIC TAB 15 MG PO SCH (08:43)
[2022-03-07] MEDS: PriLOSEC PO SCH (08:44)
[2022-03-07] MEDS: XANAX PO PRN (08:44)
[2022-03-07] MEDS: LOVENOX INJ 40 MG SYR SC SCH (08:44)
--- NOTE | 2022-03-07 08:48 | RAD ---
HISTORYCONSTIPATION; ABDOMINAL PAINSTUDYKUB x-ray one viewCOMPARISONX-ray 03/06/2022FINDINGSLikely persistent left basilar pneumothorax. There is likely moderate right-sided constipation, unchanged. Mildly dilated small bowel loops are suspected in the mid abdomen, similar to prior study. This could be associated with the constipation. Phleboliths are seen in the pelvis.IMPRESSIONAppearance of the abdomen is similar to prior study.Electronically signed by: Jose Luis Cintron (Mar 07, 2022 08:47:24)
[2022-03-07] MEDS: MILK OF MAGNESIA PO SCH ×4 (08:50→21:00)
[2022-03-07] MEDS: ARICEPT TAB 5 MG PO SCH (09:02)
--- NOTE | 2022-03-07 09:57 | PCM.PROG ---
Progress Note - Progress Note for Day of Date of Exam: 03/07/22 - Subjective Subjective: IS CURRENTLY OBSERVATION STATUS FOR TREATMENT OF PERSISTENT ABDOMINAL PAIN, CONSTIPATION, GENERALIZED WEAKNESS, AND CACHEXIA. WE HAVE ALSO RESUMED HIS CIPRO FOR TREATMENT OF PNEUMONIA THAT WAS DIAGNOSED ON HIS LAST HOSPITAL VISIT. TODAY, HE IS ALERT AND ORIENTED, LYING IN BED ON MORNING ROUNDS. HE CONTINUES WITH COMPLAINTS OF DIFFUSE ABDOMINAL PAIN. HE ALSO COMPLAINS OF WEAKNESS AND SHORTNESS OF BREATH AT TIMES. STAFF REPORTS THAT HE REQUIRES MODERATE ASSISTANCE WITH AMBULATION. HE HAS RECEIVED MULTIPLE SOAP SUDS ENEMAS SINCE ADMISSION. HAS CONSULTED WITH PATIENT AND PLANS FOR A COLONOSCOPY ON FRIDAY. ON EXAMINATION, HEART IS REGULAR IN RATE AND RHYTHM. BILATERAL LUNGS NOTED WITH DIMINISHED LUNG SOUNDS THROUGHOUT. ABDOMEN IS SLIGHTLY DISTENDED. HYPERACTIVE BOWEL SOUNDS ARE NOTED TO AUSCULTATION. NO UPPER OR LOWER EXTREMITY EDEMA IS NOTED. HIS VITALS THIS MORNING ARE: 98.4-68-20-95%-145/82. LABS WERE OBTAINED. WBC 5.0, RBC 4.09, HGB 13.2, HCT 37.7, PLT COUNT 221, SODIUM 138, POTASSIUM 4.5, CHLORIDE 105, BUN 16, CREATININE 1.45, GLUCOSE 126, AST 24, ALT 30, ALK PHOS 84, TOTAL PROTEIN 6.2, ALBUMIN 2.6. HE IS CURRENTLY RECEIVING NORMAL SALINE AT 125 ML/HR, CIPRO 500MG PO BID, XOPENEX NEBS TID, LOVENOX 40MG SQ DAILY, MILK OF MAGNESIA 15ML QID, COLACE 100MG BID, MIRALAX 17G PO HS, MORPHINE SULFATE 1-2MG IV Q4H PRN PAIN THE POTASSIUM AND MAGNESIUM PROTOCOLS, AND HIS HOME MEDICATIONS WERE RESUMED. HAS ORDERED BOWEL PREP FOR COLONOSCOPY TOMORROW. PHYSICAL THERAPY HAS EVALUATED AND WORKED WITH PATIENT. THEY RECOMMEND THAT HE CONTINUE TO RECEIVE PHYSICAL THERAPY TO FACILITATE HIGHEST LEVEL OF FUNCTION. WE HAVE DISCUSSED PLACEMENT AT [facility] OPERATOR [facility] FOR AN EXTENDED COURSE OF REHAB. THEY ARE IN AGREEMENT WITH PLANS. OTHERWISE, WE WILL CONTINUE WITH CURRENT PLAN OF CARE. WE PLAN TO FOLLOW-UP WITH AM LABS AND CONTINUE TO MONITOR. TIME SPENT ON CLINICAL ASSESSMENT, REVIEWING LABS AND IMAGING, DECISION MAKING, AND DOCUMENTATION GREATER THAN 45 MINUTES. - Past Medical Family Social History Past Med/Fam/Surg Hx: No changes since H&P Allergies: Allergies Penicillins Allergy (Verified 02/25/20 11:52) - Review of Systems ROS: No change since H&P - Vital Signs and I&O's Vital Signs: Temperature 98.4 F Pulse Rate 69 Respiratory Rate 20 Blood Pressure [Right Arm] 148/78 Blood Pressure [Left Arm] 179/95 Blood Pressure [Standing] 144/83 Blood Pressure [Sitting] 179/96 Blood Pressure [Lying] 166/87 Blood Pressure 150/85 O2 Sat by Pulse Oximetry 98 Intake and Output: Intake & Output 03/04/22 03/05/22 03/06/22 03/07/22 11:59 11:59 11:59 11:59 Intake Total 182 / 6 5042 / 5042 Balance 1825 5042 / 5042 - Physical Exam Oriented: Normal Eyes: Normal Ear: Normal Nose: Normal Throat: Normal Respiratory: Generalized, Diminished Cardiovascular: Normal : Normal Auscultation: Bowel Sounds: Increased Palpation: Normal Tenderness: Diffuse, Mild. negative: Rebound, Rigidity Skin: Normal Musculoskeletal: Normal Psychiatric: Normal Mood Description: Calm Affect: Normal Speech Pattern: Clear, Appropriate - Laboratory and Diagnostics Result Diagrams: 03/07/22 03:16 03/07/22 03:16 Labs: Laboratory WBC 5.0 X10^3/uL (3.6-10.0) 03/07/22 03:16 RBC 4.09 X10^6/uL (4.7-6.0) L 03/07/22 03:16 Hgb 13.2 g/dL (13.5-18.0) L 03/07/22 03:16 Hct 37.7 % (42.0-54.0) L 03/07/22 03:16 MCV 92.1 fL (80.0-100.0) 03/07/22 03:16 MCH 32.3 pg (27.0-34.0) 03/07/22 03:16 MCHC 35.1 g/dL (33.0-35.0) H 03/07/22 03:16 RDW 14.9 % (11.6-16.5) 03/07/22 03:16 Plt Count 221 X10^3/uL (150.0-450.0) 03/07/22 03:16 MPV 7.7 fL (7.4-11.0) 03/07/22 03:16 Neut % (Auto) 84.1 % (42.0-75.0) H 03/07/22 03:16 Lymph % (Auto) 6.1 % (21.0-51.0) L 03/07/22 03:16 [place] % (Auto) 5.7 % (0.0-13.0) 03/07/22 03:16 Eos % (Auto) 3.4 % (0.9-2.9) H 03/07/22 03:16 Baso % (Auto) 0.7 % (0.2-1.0) 03/07/22 03:16 Neut # (Auto) 4.2 x10^3/uL (2.2-4.8) 03/07/22 03:16 Lymph # (Auto) 0.3 X10^3/uL (1.3-2.9) L 03/07/22 03:16 [place] # (Auto) 0.3 x10^3/uL (0.3-0.8) 03/07/22 03:16 Eos # (Auto) 0.2 x10^3/uL (0.0-0.2) 03/07/22 03:16 Baso # (Auto) 0.0 X10^3/uL (0.0-0.1) 03/07/22 03:16 Absolute Nucleated RBC 0.1 /100WBC 03/07/22 03:16 Sodium 138 mmol/L (136-145) 03/07/22 03:16 Corrected Sodium 139 mmol/L (136-145) 03/07/22 03:16 Potassium 4.5 mmol/L (3.5-5.1) 03/07/22 03:16 Chloride 105 mmol/L (98-107) 03/07/22 03:16 Carbon Dioxide 27.5 mmol/L (21-32) 03/07/22 03:16 BUN 16 mg/dL (7-18) 03/07/22 03:16 Creatinine 1.45 mg/dL (0.70-1.30) H 03/07/22 03:16 Est GFR (MDRD) Af Amer 60 (>60) 03/07/22 03:16 Est GFR (MDRD) Non-Af 50 (>60) L 03/07/22 03:16 Glucose 126 mg/dL (65-99) H 03/07/22 03:16 Calcium 8.5 mg/dL (8.5-10.1) 03/07/22 03:16 Corrected Calcium 9.6 mg/dL (8.5-10.1) 03/07/22 03:16 Magnesium 2.6 mg/dL (1.7-2.9) 03/07/22 03:16 Total Bilirubin 0.60 mg/dL (0.2-1.0) 03/07/22 03:16 AST 24 Units/L (15-37) 03/07/22 03:16 ALT 30 Units/L (12-78) 03/07/22 03:16 Alkaline Phosphatase 84 Units/L (46-116) 03/07/22 03:16 Total Protein 6.2 g/dL (6.4-8.2) L 03/07/22 03:16 Albumin 2.6 g/dL (3.4-5.0) L 03/07/22 03:16 Globulin 3.6 g/dL (2.5-4.5) 03/07/22 03:16 Albumin/Globulin Ratio 0.7 Ratio (1.1-2.1) L 03/07/22 03:16 Stool Description See comment 03/05/22 13:41 Stool Description See comment 03/05/22 13:41 Stl Occult Blood (IFOB) Negative (NEGATIVE) 03/05/22 13:41 Stool for White Cells Negative (NEGATIVE) 03/05/22 13:41 SARS-CoV-2 (PCR) Negative (NEGATIVE) 03/05/22 15:25 Cryptosporid parvum Ag Negative (NEGATIVE) 03/05/22 13:41 Giardia lamblia Ag Negative (NEGATIVE) 03/05/22 13:41 - Plan (1) Abdominal pain Status: Acute Qualifiers: Abdominal location: generalized Qualified Code(s): R10.84 - Generalized abdominal pain Plan: bowel clense, NORMAL SALINE AT 125 ML/HR, CIPRO 500MG PO BID, XOPENEX NEBS TID, LOVENOX 40MG SQ DAILY, MILK OF MAGNESIA 15ML QID, COLACE 100MG BID, MIRALAX 17G PO HS, MORPHINE SULFATE 1-2MG IV Q4H PRN PAIN THE POTASSIUM AND MAGNESIUM PROTOCOLS, AND HIS HOME MEDICATIONS WERE RESUMED (2) Constipation Status: Acute Qualifiers: Constipation type: unspecified constipation type Qualified Code(s): K59.00 - Constipation, unspecified (3) Cachexia Status: Acute (4) Generalized weakness Status: Acute (5) Multiple rib fractures Status: Acute Qualifiers: Encounter type: subsequent encounter Fracture type: closed Laterality: left Fracture healing: with routine healing Qualified Code(s): S22.42XD - Multiple fractures of ribs, left side, subsequent encounter for fracture with routine healing (6) Chronic systolic (congestive) heart failure Status: Chronic (7) Dementia Status: Chronic Qualifiers: Dementia type: vascular dementia Dementia behavioral disturbance: without behavioral disturbance Qualified Code(s): F01.50 - Vascular dementia without behavioral disturbance (8) Diabetes mellitus, type II Status: Chronic Qualifiers: 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
[2022-03-07] MEDS ORDERED: GOLYTELY or GAVILYTE or Equivalent PO SCH (11:00)
[2022-03-07] MEDS: XOPENEX 1.25 MG/3 ML NEBULE NEB SCH ×2 (13:39→21:05)
[2022-03-07] MEDS: ULTRAM PO PRN (19:45)
[2022-03-07] MEDS: CRESTOR TAB 10 MG PO SCH (21:30)
[2022-03-07] MEDS: MIRALAX POWDER (1 DOSE 17 G) PO SCH (21:31)
[2022-03-07] MEDS: RESTORIL CAP 15 MG PO PRN (21:32)
[2022-03-08 05:11] LABS: BASOPHILS % (AUTO) 0.3 % (0.2-1.0); EOSINOPHILS # (AUTO) 0.2 x10^3/uL (0.0-0.2); EOSINOPHILS % (AUTO) 3.7 % (0.9-2.9); HEMATOCRIT 34.4 % (42.0-54.0); HEMOGLOBIN 12.1 g/dL (13.5-18.0); LYMPHOCYTES # (AUTO) 0.3 X10^3/uL (1.3-2.9); LYMPHOCYTES % (AUTO) 6.1 % (21.0-51.0); MEAN CORPUSCULAR HEMOGLOBIN 32.3 pg (27.0-34.0); MEAN CORPUSCULAR HGB CONC 35.3 g/dL (33.0-35.0); MEAN CORPUSCULAR VOLUME 91.7 fL (80.0-100.0); MEAN PLATELET VOLUME 7.5 fL (7.4-11.0); MONOCYTES # (AUTO) 0.4 x10^3/uL (0.3-0.8); MONOCYTES % (AUTO) 7.9 % (0.0-13.0); NEUTROPHILS # (AUTO) 4.3 x10^3/uL (2.2-4.8); RED BLOOD COUNT 3.76 X10^6/uL (4.7-6.0); WHITE BLOOD COUNT 5.3 X10^3/uL (3.6-10.0)
[2022-03-08 05:31] LABS: ALANINE AMINOTRANSFERASE 22 Units/L (12-78); ALBUMIN 2.4 g/dL (3.4-5.0); ALKALINE PHOSPHATASE 84 Units/L (46-116); ASPARTATE AMINO TRANSFERASE 19 Units/L (15-37); BLOOD UREA NITROGEN 16 mg/dL (7-18); CALCIUM 8.2 mg/dL (8.5-10.1); CARBON DIOXIDE 24.7 mmol/L (21-32); CHLORIDE 105 mmol/L (98-107); COR CA(FOR HYPOALB) 9.5 mg/dL (8.5-10.1); CREATININE 1.46 mg/dL (0.70-1.30); SODIUM 136 mmol/L (136-145); TOTAL PROTEIN 5.6 g/dL (6.4-8.2); eGFR NON BLACK RACES 49 (>60)
[2022-03-08] MEDS: XOPENEX 1.25 MG/3 ML NEBULE NEB SCH ×3 (05:42→21:17)
[2022-03-08] MEDS: NS 1,000 ML IV 1,000 ML IV SCH ×3 (06:43→16:54)
[2022-03-08] MEDS ORDERED: NORVASC TAB 2.5 MG ONE (09:15)
[2022-03-08] MEDS: COLACE CAP 100 MG PO SCH ×2 (09:16→21:03)
[2022-03-08] MEDS: MILK OF MAGNESIA PO SCH ×4 (09:16→21:01)
[2022-03-08] MEDS: NORVASC TAB 2.5 MG PO SCH (09:16)
[2022-03-08] MEDS: MAXZIDE 37.5/25 MG PO SCH (09:16)
[2022-03-08] MEDS: CYMBALTA PO SCH (09:16)
--- NOTE | 2022-03-08 09:16 | RAD ---
HISTORYCONSTIPATION, ABD PAINSTUDYKUB x-ray one viewCOMPARISONX-ray 03/07/2022FINDINGSMild small and large bowel air is seen with improvement of constipation. Mild retained fecal material is seen in the colon. Mild impaction in the rectum and descending colon may be present.IMPRESSIONPossible mild fecal impaction in the rectum and descending colon but appearance of the constipation is improved from prior study.Electronically signed by: Jose Luis Cintron (Mar 08, 2022 09:14:49)
[2022-03-08] MEDS: MICRO K EXTEN CAP 10 MEQ PO SCH (09:17)
[2022-03-08] MEDS: FLOMAX PO SCH (09:17)
[2022-03-08] MEDS: DETROL LA 4 MG CAP EXT REL PO SCH (09:17)
[2022-03-08] MEDS: CARDIZEM CD 120 MG 24-HR PO SCH (09:17)
[2022-03-08] MEDS: MOBIC TAB 15 MG PO SCH (09:17)
[2022-03-08] MEDS: LOPRESSOR TAB 50 MG PO SCH ×2 (09:17→21:02)
[2022-03-08] MEDS: MEGACE PO SCH ×2 (09:18→21:02)
[2022-03-08] MEDS: PriLOSEC PO SCH (09:18)
[2022-03-08] MEDS: ASPIRIN EC 81 MG PO SCH (09:18)
[2022-03-08] MEDS: LASIX PO SCH (09:18)
[2022-03-08] MEDS: CIPRO TAB 500 MG PO SCH ×2 (09:18→21:01)
[2022-03-08] MEDS: ARICEPT TAB 5 MG PO SCH (09:20)
[2022-03-08] MEDS: EXELON PATCH TD SCH (10:17)
[2022-03-08] MEDS ORDERED: DIPRIVAN VIAL 20 ML ONE (11:14)
[2022-03-08] MEDS: LOVENOX INJ 40 MG SYR SC SCH (11:53)
--- NOTE | 2022-03-08 16:11 | PCM.PROG ---
Progress Note - Progress Note for Day of Date of Exam: 03/08/22 - Subjective Subjective: IS CURRENTLY OBSERVATION STATUS FOR TREATMENT OF PERSISTENT ABDOMINAL PAIN, CONSTIPATION, GENERALIZED WEAKNESS, AND CACHEXIA. WE HAVE ALSO RESUMED HIS CIPRO FOR TREATMENT OF PNEUMONIA THAT WAS DIAGNOSED ON HIS LAST HOSPITAL VISIT. TODAY, HE IS ALERT AND ORIENTED, LYING IN BED ON MORNING ROUNDS. HE CONTINUES WITH COMPLAINTS OF DIFFUSE ABDOMINAL PAIN, ALTHOUGH SLIGHTLY IMPROVED SINCE ADMISSION. HE ALSO COMPLAINS OF WEAKNESS AND SHORTNESS OF BREATH AT TIMES. STAFF REPORTS THAT HE REQUIRES MODERATE ASSISTANCE WITH AMBULATION. HE HAS RECEIVED MULTIPLE SOAP SUDS ENEMAS SINCE ADMISSION. HAS CONSULTED WITH PATIENT AND PLANS FOR A COLONOSCOPY TODAY. ON EXAMINATION, HEART IS REGULAR IN RATE AND RHYTHM. BILATERAL LUNGS NOTED WITH DIMINISHED LUNG SOUNDS THROUGHOUT. ABDOMEN IS SLIGHTLY DISTENDED. HYPERACTIVE BOWEL SOUNDS ARE NOTED TO AUSCULTATION. NO UPPER OR LOWER EXTREMITY EDEMA IS NOTED. HIS VITALS THIS MORNING ARE: 99.1-74-21-94%-146/76. LABS WERE OBTAINED. WBC 5.3, RBC 3.76, HGB 12.1, HCT 34.4, PLT COUNT 218, SODIUM 134, POTASSIUM 4.0, BUN 16, CREATININE 1.46, GLUCOSE 110, CALCIUM 8.2, TOTAL PROTEIN 5.6, ALBUMIN 2.4. HE IS CURRENTLY RECEIVING NORMAL SALINE AT 125 ML/HR, CIPRO 500MG PO BID, XOPENEX NEBS TID, LOVENOX 40MG SQ DAILY, MILK OF MAGNESIA 15ML QID, COLACE 100MG BID, MIRALAX 17G PO HS, MORPHINE SULFATE 1-2MG IV Q4H PRN PAIN THE POTASSIUM AND MAGNESIUM PROTOCOLS, AND HIS HOME MEDICATIONS WERE RESUMED. PHYSICAL THERAPY HAS EVALUATED AND WORKED WITH PATIENT. THEY RECOMMEND THAT HE CONTINUE TO RECEIVE PHYSICAL THERAPY TO FACILITATE HIGHEST LEVEL OF FUNCTION. WE HAVE DISCUSSED PLACEMENT AT LONG-TERM THERAPY FOR AN EXTENDED COURSE OF REHAB. THEY ARE IN AGREEMENT WITH PLANS. OTHERWISE, WE WILL CONTINUE WITH CURRENT PLAN OF CARE. WE PLAN TO FOLLOW-UP WITH AM LABS AND CONTINUE TO MONITOR. TIME SPENT ON CLINICAL ASSESSMENT, REVIEWING LABS AND IMAGING, DECISION MAKING, AND DOCUMENTATION GREATER THAN 45 MINUTES. - Past Medical Family Social History Past Med/Fam/Surg Hx: No changes since H&P Allergies: Allergies Penicillins Allergy (Verified 02/25/20 11:52) - Review of Systems ROS: No change since H&P - Vital Signs and I&O's Vital Signs: Temperature 99.1 F Pulse Rate 74 Respiratory Rate 23 Blood Pressure [Right Arm] 148/78 Blood Pressure [Left Arm] 179/95 Blood Pressure [Standing] 144/83 Blood Pressure [Sitting] 179/96 Blood Pressure [Lying] 166/87 Blood Pressure 108/69 O2 Sat by Pulse Oximetry 100 Intake and Output: Intake & Output 03/06/22 03/07/22 03/08/22 03/09/22 11:59 11:59 11:59 11:59 Intake Total 1826 / 6 5042 / 5042 8147 / 8147 Balance 1826 / 1826 5042 / 5042 8147 / 8147 - Physical Exam Oriented: Normal Eyes: Normal Ear: Normal Nose: Normal Throat: Normal Respiratory: Generalized, Diminished Cardiovascular: Normal : Normal Auscultation: Bowel Sounds: Increased Tenderness: Diffuse, Mild. negative: Rebound, Rigidity Skin: Normal Musculoskeletal: Normal Psychiatric: Normal Mood Description: Calm Affect: Normal Speech Pattern: Clear, Appropriate - Laboratory and Diagnostics Result Diagrams: 03/08/22 04:07 03/08/22 04:07 Labs: Laboratory WBC 5.3 X10^3/uL (3.6-10.0) 03/08/22 04:07 RBC 3.76 X10^6/uL (4.7-6.0) L 03/08/22 04:07 Hgb 12.1 g/dL (13.5-18.0) L 03/08/22 04:07 Hct 34.4 % (42.0-54.0) L 03/08/22 04:07 MCV 91.7 fL (80.0-100.0) 03/08/22 04:07 MCH 32.3 pg (27.0-34.0) 03/08/22 04:07 MCHC 35.3 g/dL (33.0-35.0) H 03/08/22 04:07 RDW 15.0 % (11.6-16.5) 03/08/22 04:07 Plt Count 218 X10^3/uL (150.0-450.0) 03/08/22 04:07 MPV 7.5 fL (7.4-11.0) 03/08/22 04:07 Neut % (Auto) 82.0 % (42.0-75.0) H 03/08/22 04:07 Lymph % (Auto) 6.1 % (21.0-51.0) L 03/08/22 04:07 [place] % (Auto) 7.9 % (0.0-13.0) 03/08/22 04:07 Eos % (Auto) 3.7 % (0.9-2.9) H 03/08/22 04:07 Baso % (Auto) 0.3 % (0.2-1.0) 03/08/22 04:07 Neut # (Auto) 4.3 x10^3/uL (2.2-4.8) 03/08/22 04:07 Lymph # (Auto) 0.3 X10^3/uL (1.3-2.9) L 03/08/22 04:07 [place] # (Auto) 0.4 x10^3/uL (0.3-0.8) 03/08/22 04:07 Eos # (Auto) 0.2 x10^3/uL (0.0-0.2) 03/08/22 04:07 Baso # (Auto) 0.0 X10^3/uL (0.0-0.1) 03/08/22 04:07 Absolute Nucleated RBC 0.0 /100WBC 03/08/22 04:07 Sodium 136 mmol/L (136-145) 03/08/22 04:07 Corrected Sodium TNP 03/08/22 04:07 Potassium 4.0 mmol/L (3.5-5.1) 03/08/22 04:07 Chloride 105 mmol/L (98-107) 03/08/22 04:07 Carbon Dioxide 24.7 mmol/L (21-32) 03/08/22 04:07 BUN 16 mg/dL (7-18) 03/08/22 04:07 Creatinine 1.46 mg/dL (0.70-1.30) H 03/08/22 04:07 Est GFR (MDRD) Af Amer 59 (>60) 03/08/22 04:07 Est GFR (MDRD) Non-Af 49 (>60) L 03/08/22 04:07 Glucose 110 mg/dL (65-99) H 03/08/22 04:07 Calcium 8.2 mg/dL (8.5-10.1) L 03/08/22 04:07 Corrected Calcium 9.5 mg/dL (8.5-10.1) 03/08/22 04:07 Magnesium 2.6 mg/dL (1.7-2.9) 03/07/22 03:16 Total Bilirubin 0.60 mg/dL (0.2-1.0) 03/08/22 04:07 AST 19 Units/L (15-37) 03/08/22 04:07 ALT 22 Units/L (12-78) 03/08/22 04:07 Alkaline Phosphatase 84 Units/L (46-116) 03/08/22 04:07 Total Protein 5.6 g/dL (6.4-8.2) L 03/08/22 04:07 Albumin 2.4 g/dL (3.4-5.0) L 03/08/22 04:07 Globulin 3.2 g/dL (2.5-4.5) 03/08/22 04:07 Albumin/Globulin Ratio 0.8 Ratio (1.1-2.1) L 03/08/22 04:07 Stool Description See comment 03/05/22 13:41 Stool Description See comment 03/05/22 13:41 Stool Neutral Fats Normal (Normal) 03/05/22 21:25 Stool Split Fat Normal (Normal) 03/05/22 21:25 Stl Occult Blood (IFOB) Negative (NEGATIVE) 03/05/22 13:41 Stool for White Cells Negative (NEGATIVE) 03/05/22 13:41 SARS-CoV-2 (PCR) Negative (NEGATIVE) 03/05/22 15:25 Cryptosporid parvum Ag Negative (NEGATIVE) 03/05/22 13:41 Giardia lamblia Ag Negative (NEGATIVE) 03/05/22 13:41 - Plan (1) Abdominal pain Status: Acute Qualifiers: Abdominal location: generalized Qualified Code(s): R10.84 - Generalized abdominal pain Plan: bowel clense, NORMAL SALINE AT 125 ML/HR, CIPRO 500MG PO BID, XOPENEX NEBS TID, LOVENOX 40MG SQ DAILY, MILK OF MAGNESIA 15ML QID, COLACE 100MG BID, MIRALAX 17G PO HS, MORPHINE SULFATE 1-2MG IV Q4H PRN PAIN THE POTASSIUM AND MAGNESIUM PROTOCOLS, AND HIS HOME MEDICATIONS WERE RESUMED (2) Constipation Status: Acute Qualifiers: Constipation type: unspecified constipation type Qualified Code(s): K59.00 - Constipation, unspecified (3) Cachexia Status: Acute (4) Generalized weakness Status: Acute (5) Multiple rib fractures Status: Acute Qualifiers: Encounter type: subsequent encounter Fracture type: closed Laterality: left Fracture healing: with routine healing Qualified Code(s): S22.42XD - Multiple fractures of ribs, left side, subsequent encounter for fracture with routine healing (6) Chronic systolic (congestive) heart failure Status: Chronic (7) Dementia Status: Chronic Qualifiers: Dementia type: vascular dementia Dementia behavioral disturbance: without behavioral disturbance Qualified Code(s): F01.50 - Vascular dementia without behavioral disturbance (8) Diabetes mellitus, type II Status: Chronic Qualifiers: Diabetes mellitus correction insulin use: with correction use Diabetes mellitus complication status: with hyperglycemia Qualified Code(s): E11.65 - Type 2 diabetes mellitus with hyperglycemia; Z79.4 - termite treater helper (current) use of insulin (9) Hypertension Status: Chronic Qualifiers: Hypertension type: primary hypertension
[2022-03-08] MEDS: MIRALAX POWDER (1 DOSE 17 G) PO SCH (21:01)
[2022-03-08] MEDS: CRESTOR TAB 10 MG PO SCH (21:02)
[2022-03-08] MEDS: RESTORIL CAP 15 MG PO PRN (21:14)
[2022-03-08] MEDS: XANAX PO PRN (22:06)
[2022-03-09] MEDS: MORPHINE SULFATE INJ 2 MG INJ IVP PRN ×2 (04:00→22:25)
[2022-03-09 05:20] LABS: BASOPHILS % (AUTO) 0.4 % (0.2-1.0); EOSINOPHILS # (AUTO) 0.2 x10^3/uL (0.0-0.2); EOSINOPHILS % (AUTO) 4.7 % (0.9-2.9); HEMATOCRIT 34.8 % (42.0-54.0); HEMOGLOBIN 12.4 g/dL (13.5-18.0); LYMPHOCYTES # (AUTO) 0.3 X10^3/uL (1.3-2.9); LYMPHOCYTES % (AUTO) 6.2 % (21.0-51.0); MEAN CORPUSCULAR HEMOGLOBIN 32.8 pg (27.0-34.0); MEAN CORPUSCULAR HGB CONC 35.8 g/dL (33.0-35.0); MEAN CORPUSCULAR VOLUME 91.6 fL (80.0-100.0); MEAN PLATELET VOLUME 7.4 fL (7.4-11.0); MONOCYTES # (AUTO) 0.4 x10^3/uL (0.3-0.8); MONOCYTES % (AUTO) 7.8 % (0.0-13.0); NEUTROPHILS # (AUTO) 3.7 x10^3/uL (2.2-4.8); NEUTROPHILS % (AUTO) 80.9 % (42.0-75.0); RED BLOOD COUNT 3.79 X10^6/uL (4.7-6.0); WHITE BLOOD COUNT 4.5 X10^3/uL (3.6-10.0)
[2022-03-09 05:27] LABS: ALBUMIN 2.6 g/dL (3.4-5.0); CALCIUM 8.3 mg/dL (8.5-10.1); CARBON DIOXIDE 25.6 mmol/L (21-32); COR CA(FOR HYPOALB) 9.4 mg/dL (8.5-10.1); CREATININE 1.78 mg/dL (0.70-1.30); TOTAL PROTEIN 5.9 g/dL (6.4-8.2)
[2022-03-09] MEDS: XOPENEX 1.25 MG/3 ML NEBULE NEB SCH ×4 (05:40→20:45)
[2022-03-09] MEDS: NS 1,000 ML IV 1,000 ML IV SCH ×3 (05:47→17:25)
--- NOTE | 2022-03-09 06:03 | RAD ---
HISTORYConstipationSTUDYKUBCOMPARISON r.br.br.br.br.br and large bowel appears unchanged. There is mild constipation. No free air.IMPRESSIONNo significant change.Electronically signed by: Antonio Doe (Mar 09, 2022 06:02:00)
[2022-03-09] MEDS ORDERED: NORVASC TAB 2.5 MG ONE (09:15)
[2022-03-09] MEDS: MOBIC TAB 15 MG PO SCH (09:17)
[2022-03-09] MEDS: MILK OF MAGNESIA PO SCH ×4 (09:17→20:55)
[2022-03-09] MEDS: LOVENOX INJ 40 MG SYR SC SCH (09:17)
[2022-03-09] MEDS: EXELON PATCH TD SCH (09:17)
[2022-03-09] MEDS: MICRO K EXTEN CAP 10 MEQ PO SCH (09:18)
[2022-03-09] MEDS: CARDIZEM CD 120 MG 24-HR PO SCH (09:18)
[2022-03-09] MEDS: FLOMAX PO SCH (09:18)
[2022-03-09] MEDS: MAXZIDE 37.5/25 MG PO SCH (09:18)
[2022-03-09] MEDS: CYMBALTA PO SCH (09:18)
[2022-03-09] MEDS: PriLOSEC PO SCH (09:19)
[2022-03-09] MEDS: LASIX PO SCH (09:19)
[2022-03-09] MEDS: LOPRESSOR TAB 50 MG PO SCH ×2 (09:19→20:56)
[2022-03-09] MEDS: ASPIRIN EC 81 MG PO SCH (09:19)
[2022-03-09] MEDS: MEGACE PO SCH ×2 (09:19→20:56)
[2022-03-09] MEDS: NORVASC TAB 2.5 MG PO SCH (09:19)
[2022-03-09] MEDS: DETROL LA 4 MG CAP EXT REL PO SCH (09:20)
[2022-03-09] MEDS: COLACE CAP 100 MG PO SCH ×2 (09:20→20:56)
[2022-03-09] MEDS: ARICEPT TAB 5 MG PO SCH (09:21)
[2022-03-09] MEDS: CIPRO TAB 500 MG PO SCH ×2 (09:21→20:55)
--- NOTE | 2022-03-09 09:50 | DR.PROGNOT ---
Hospital Progress Notes - Progress Note for Day of: Progress Note Date: 03/09/22 - Chief Complaint Chief Complaint: tolerating diet and having soft bowel movement with less abdominal pain and distention .. moderate Lt chest pain . - Past Medical Family Social History Past Med/Fam/Surg Hx: No changes since H&P Allergies: Allergies Penicillins Allergy (Verified 02/25/20 11:52) - Review Of Systems ROS: No change since H&P - Vital Signs Vital Signs: Temperature 98.2 F Pulse Rate 78 Respiratory Rate 20 Blood Pressure [Right Arm] 148/78 Blood Pressure [Left Arm] 179/95 Blood Pressure [Standing] 144/83 Blood Pressure [Sitting] 179/96 Blood Pressure [Lying] 166/87 Blood Pressure 168/88 O2 Sat by Pulse Oximetry 99 - Physical Exam Oriented: Normal Eyes: Normal Ear: Normal Nose: Normal Throat: Normal Respiratory: Generalized, Diminished Cardiovascular: Normal : Normal GI:Auscultation: Normal GI:Palpation: Normal GI: Tenderness: Diffuse (soft abdomen with mild diffuse tendrness ..), Mild. negative: Rebound, Rigidity Skin: Normal Musculoskeletal: Normal Psychiatric: Normal Mood Description: Calm Affect: Normal Speech Pattern: Clear, Appropriate - Laboratory and Diagnostics Result Diagrams: 03/09/22 04:20 03/09/22 04:20 Labs: Laboratory WBC 4.5 X10^3/uL (3.6-10.0) 03/09/22 04:20 RBC 3.79 X10^6/uL (4.7-6.0) L 03/09/22 04:20 Hgb 12.4 g/dL (13.5-18.0) L 03/09/22 04:20 Hct 34.8 % (42.0-54.0) L 03/09/22 04:20 MCV 91.6 fL (80.0-100.0) 03/09/22 04:20 MCH 32.8 pg (27.0-34.0) 03/09/22 04:20 MCHC 35.8 g/dL (33.0-35.0) H 03/09/22 04:20 RDW 15.0 % (11.6-16.5) 03/09/22 04:20 Plt Count 223 X10^3/uL (150.0-450.0) 03/09/22 04:20 MPV 7.4 fL (7.4-11.0) 03/09/22 04:20 Neut % (Auto) 80.9 % (42.0-75.0) H 03/09/22 04:20 Lymph % (Auto) 6.2 % (21.0-51.0) L 03/09/22 04:20 [place] % (Auto) 7.8 % (0.0-13.0) 03/09/22 04:20 Eos % (Auto) 4.7 % (0.9-2.9) H 03/09/22 04:20 Baso % (Auto) 0.4 % (0.2-1.0) 03/09/22 04:20 Neut # (Auto) 3.7 x10^3/uL (2.2-4.8) 03/09/22 04:20 Lymph # (Auto) 0.3 X10^3/uL (1.3-2.9) L 03/09/22 04:20 [place] # (Auto) 0.4 x10^3/uL (0.3-0.8) 03/09/22 04:20 Eos # (Auto) 0.2 x10^3/uL (0.0-0.2) 03/09/22 04:20 Baso # (Auto) 0.0 X10^3/uL (0.0-0.1) 03/09/22 04:20 Absolute Nucleated RBC 0.1 /100WBC 03/09/22 04:20 Sodium 135 mmol/L (136-145) L 03/09/22 04:20 Corrected Sodium 136 mmol/L (136-145) 03/09/22 04:20 Potassium 3.9 mmol/L (3.5-5.1) 03/09/22 04:20 Chloride 104 mmol/L (98-107) 03/09/22 04:20 Carbon Dioxide 25.6 mmol/L (21-32) 03/09/22 04:20 BUN 17 mg/dL (7-18) 03/09/22 04:20 Creatinine 1.78 mg/dL (0.70-1.30) H 03/09/22 04:20 Est GFR (MDRD) Af Amer 47 (>60) L 03/09/22 04:20 Est GFR (MDRD) Non-Af 39 (>60) L 03/09/22 04:20 Glucose 142 mg/dL (65-99) H 03/09/22 04:20 Calcium 8.3 mg/dL (8.5-10.1) L 03/09/22 04:20 Corrected Calcium 9.4 mg/dL (8.5-10.1) 03/09/22 04:20 Magnesium 2.6 mg/dL (1.7-2.9) 03/07/22 03:16 Total Bilirubin 0.50 mg/dL (0.2-1.0) 03/09/22 04:20 AST 19 Units/L (15-37) 03/09/22 04:20 ALT 22 Units/L (12-78) 03/09/22 04:20 Alkaline Phosphatase 97 Units/L (46-116) 03/09/22 04:20 Total Protein 5.9 g/dL (6.4-8.2) L 03/09/22 04:20 Albumin 2.6 g/dL (3.4-5.0) L 03/09/22 04:20 Globulin 3.3 g/dL (2.5-4.5) 03/09/22 04:20 Albumin/Globulin Ratio 0.8 Ratio (1.1-2.1) L 03/09/22 04:20 Stool Description See comment 03/05/22 13:41 Stool Description See comment 03/05/22 13:41 Stool Neutral Fats Normal (Normal) 03/05/22 21:25 Stool Split Fat Normal (Normal) 03/05/22 21:25 Stl Occult Blood (IFOB) Negative (NEGATIVE) 03/05/22 13:41 Stool for White Cells Negative (NEGATIVE) 03/05/22 13:41 SARS-CoV-2 (PCR) Negative (NEGATIVE) 03/05/22 15:25 Cryptosporid parvum Ag Negative (NEGATIVE) 03/05/22 13:41 Giardia lamblia Ag Negative (NEGATIVE) 03/05/22 13:41 - Assessment and Plan 1: subsiding ileus .. no mechanical obstruction. rib Fxs with stable pn eumothorax .. same plan .. - Problem Patient Problems: Patient Problems Abdominal pain (Acute) R10.9 Mass of colon (Acute) K63.89 Cachexia (Acute) R64 Constipation (Acute) K59.00 Multiple rib fractures (Acute) S22.49XA Diabetes mellitus, type II (Chronic) E11.9 Generalized weakness (Acute) R53.1 Hypertension (Chronic) I10 Chronic systolic (congestive) heart failure (Chronic) I50.22 Dementia (Chronic) F03.90
--- NOTE | 2022-03-09 11:01 | PCM.PROG ---
Progress Note Progress Note for Day of Date of Exam: 03/09/22 Subjective Subjective: PT IS A 81 YEAR OLD MALE THAT IS CURRENTLY OBSERVATION STATUS FOR TREATMENT OF PERSISTENT ABDOMINAL PAIN, CONSTIPATION, GENERALIZED WEAKNESS, AND CACHEXIA. TODAY, HE IS ALERT AND ORIENTED, LYING IN BED ON MORNING ROUNDS. NO ACUTE EVENTS OVERNIGHT. HAS CONSULTED, HAD COLONOSCOPY WITH NO EVIDENCE OF MALIGNANCY. NOW HAS SUBSIDING ILEUS. LABS WERE OBTAINED. WBC 4.5, HGB 12.4, PLT COUNT 223, SODIUM 135, POTASSIUM 3.9, CREATININE 1.78, GLUCOSE 142, HE IS CURRENTLY RECEIVING NORMAL SALINE AT 125 ML/HR, CIPRO 500MG PO BID, XOPENEX NEBS TID, LOVENOX 40MG SQ DAILY, MILK OF MAGNESIA 15ML QID, COLACE 100MG BID, MIRALAX 17G PO HS, MORPHINE SULFATE 1-2MG IV Q4H PRN PAIN THE POTASSIUM AND MAGNESIUM PROTOCOLS, AND HOME MEDICATIONS. PHYSICAL THERAPY HAS EVALUATED AND WORKED WITH PATIENT. THEY RECOMMEND THAT HE CONTINUE TO RECEIVE PHYSICAL THERAPY TO FACILITATE HIGHEST LEVEL OF FUNCTION. IT HAS BEEN DISCUSSED PLACEMENT AT [facility] FOR AN EXTENDED COURSE OF REHAB. THEY ARE IN AGREEMENT WITH PLANS. OTHERWISE, WILL CONTINUE WITH CURRENT PLAN OF CARE. WE PLAN TO FOLLOW-UP WITH AM LABS AND CONTINUE TO MONITOR. Past Medical Family Social History Past Med/Fam/Surg Hx: No changes since H&P Allergies: Allergies Penicillins Allergy (Verified 02/25/20 11:52) Review of Systems ROS: No change since H&P Vital Signs and I&O's Vital Signs: Temperature 98.2 F Pulse Rate 86 Respiratory Rate 27 Blood Pressure [Right Arm] 148/78 Blood Pressure [Left Arm] 179/95 Blood Pressure [Standing] 144/83 Blood Pressure [Sitting] 179/96 Blood Pressure [Lying] 166/87 Blood Pressure 150/80 O2 Sat by Pulse Oximetry 99 Intake and Output: Intake & Output 03/06/22 03/07/22 03/08/22 03/09/22 23:59 23:59 23:59 23:59 Intake Total 4724 / 4724 5905 / 5905 5480 / 5480 1060 / 1060 Output Total 300 / 300 Balance 4724 / 4724 5905 / 5905 5480 / 5480 760 / 760 Physical Exam Oriented: Normal Eyes: Normal Ear: Normal Nose: Normal Throat: Normal Respiratory: Generalized and Diminished Cardiovascular: Normal : Normal Auscultation: Bowel Sounds: Normal Tenderness: Diffuse (soft abdomen with mild diffuse tendrness ..) and Mild; negative Rebound and Rigidity Skin: Normal Musculoskeletal: Normal Psychiatric: Normal Mood Description: Calm Affect: Normal Speech Pattern: Clear and Appropriate Laboratory and Diagnostics Result Diagrams: 03/09/22 04:20 03/09/22 04:20 Labs: Laboratory WBC 4.5 X10^3/uL (3.6-10.0) 03/09/22 04:20 RBC 3.79 X10^6/uL (4.7-6.0) L 03/09/22 04:20 Hgb 12.4 g/dL (13.5-18.0) L 03/09/22 04:20 Hct 34.8 % (42.0-54.0) L 03/09/22 04:20 MCV 91.6 fL (80.0-100.0) 03/09/22 04:20 MCH 32.8 pg (27.0-34.0) 03/09/22 04:20 MCHC 35.8 g/dL (33.0-35.0) H 03/09/22 04:20 RDW 15.0 % (11.6-16.5) 03/09/22 04:20 Plt Count 223 X10^3/uL (150.0-450.0) 03/09/22 04:20 MPV 7.4 fL (7.4-11.0) 03/09/22 04:20 Neut % (Auto) 80.9 % (42.0-75.0) H 03/09/22 04:20 Lymph % (Auto) 6.2 % (21.0-51.0) L 03/09/22 04:20 [place] % (Auto) 7.8 % (0.0-13.0) 03/09/22 04:20 Eos % (Auto) 4.7 % (0.9-2.9) H 03/09/22 04:20 Baso % (Auto) 0.4 % (0.2-1.0) 03/09/22 04:20 Neut # (Auto) 3.7 x10^3/uL (2.2-4.8) 03/09/22 04:20 Lymph # (Auto) 0.3 X10^3/uL (1.3-2.9) L 03/09/22 04:20 [place] # (Auto) 0.4 x10^3/uL (0.3-0.8) 03/09/22 04:20 Eos # (Auto) 0.2 x10^3/uL (0.0-0.2) 03/09/22 04:20 Baso # (Auto) 0.0 X10^3/uL (0.0-0.1) 03/09/22 04:20 Absolute Nucleated RBC 0.1 /100WBC 03/09/22 04:20 Sodium 135 mmol/L (136-145) L 03/09/22 04:20 Corrected Sodium 136 mmol/L (136-145) 03/09/22 04:20 Potassium 3.9 mmol/L (3.5-5.1) 03/09/22 04:20 Chloride 104 mmol/L (98-107) 03/09/22 04:20 Carbon Dioxide 25.6 mmol/L (21-32) 03/09/22 04:20 BUN 17 mg/dL (7-18) 03/09/22 04:20 Creatinine 1.78 mg/dL (0.70-1.30) H 03/09/22 04:20 Est GFR (MDRD) Af Amer 47 (>60) L 03/09/22 04:20 Est GFR (MDRD) Non-Af 39 (>60) L 03/09/22 04:20 Glucose 142 mg/dL (65-99) H 03/09/22 04:20 Calcium 8.3 mg/dL (8.5-10.1) L 03/09/22 04:20 Corrected Calcium 9.4 mg/dL (8.5-10.1) 03/09/22 04:20 Magnesium 2.6 mg/dL (1.7-2.9) 03/07/22 03:16 Total Bilirubin 0.50 mg/dL (0.2-1.0) 03/09/22 04:20 AST 19 Units/L (15-37) 03/09/22 04:20 ALT 22 Units/L (12-78) 03/09/22 04:20 Alkaline Phosphatase 97 Units/L (46-116) 03/09/22 04:20 Total Protein 5.9 g/dL (6.4-8.2) L 03/09/22 04:20 Albumin 2.6 g/dL (3.4-5.0) L 03/09/22 04:20 Globulin 3.3 g/dL (2.5-4.5) 03/09/22 04:20 Albumin/Globulin Ratio 0.8 Ratio (1.1-2.1) L 03/09/22 04:20 Stool Description See comment 03/05/22 13:41 Stool Description See comment 03/05/22 13:41 Stool Neutral Fats Normal (Normal) 03/05/22 21:25 Stool Split Fat Normal (Normal) 03/05/22 21:25 Stl Occult Blood (IFOB) Negative (NEGATIVE) 03/05/22 13:41 Stool for White Cells Negative (NEGATIVE) 03/05/22 13:41 SARS-CoV-2 (PCR) Negative (NEGATIVE) 03/05/22 15:25 Cryptosporid parvum Ag Negative (NEGATIVE) 03/05/22 13:41 Giardia lamblia Ag Negative (NEGATIVE) 03/05/22 13:41 Plan (1) Abdominal pain: Status: Acute Qualifiers: Abdominal location: generalized Qualified Code(s): R10.84 - Generalized abdominal pain Plan: bowel clense, NORMAL SALINE AT 125 ML/HR, CIPRO 500MG PO BID, XOPENEX NEBS TID, LOVENOX 40MG SQ DAILY, MILK OF MAGNESIA 15ML QID, COLACE 100MG BID, MIRALAX 17G PO HS, MORPHINE SULFATE 1-2MG IV Q4H PRN PAIN THE POTASSIUM AND MAGNESIUM PROTOCOLS, AND HIS HOME MEDICATIONS WERE RESUMED (2) Constipation: Status: Acute Qualifiers: Constipation type: unspecified constipation type Qualified Code(s): K59.00 - Constipation, unspecified (3) Cachexia: Status: Acute (4) Generalized weakness: Status: Acute (5) Multiple rib fractures: Status: Acute Qualifiers: Encounter type: subsequent encounter Fracture healing: with routine healing Fracture type: closed Laterality: left Qualified Code(s): S22.42XD - Multiple fractures of ribs, left side, subsequent encounter for fracture with routine healing (6) Chronic systolic (congestive) heart failure: Status: Chronic (7) Dementia: Status: Chronic Qualifiers: Dementia behavioral disturbance: without behavioral disturbance Dementia type: vascular dementia Qualified Code(s): F01.50 - Vascular dementia without behavioral disturbance (8) Diabetes mellitus, type II: Status: Chronic Qualifiers: Diabetes mellitus complication status: with hyperglycemia Diabetes mellitus penitentiary insulin use: with extermination supervisor use Qualified Code(s): E11.65 - Type 2 diabetes mellitus with hyperglycemia; Z79.4 - joint terminal attack controller (current) use of insulin (9) Hypertension: Status: Chronic Qualifiers: Hypertension type: primary hypertension
[2022-03-09] MEDS: MIRALAX POWDER (1 DOSE 17 G) PO SCH (20:55)
[2022-03-09] MEDS: CRESTOR TAB 10 MG PO SCH (20:56)
[2022-03-09] MEDS: ULTRAM PO PRN (20:57)
[2022-03-09] MEDS: XANAX PO PRN (20:57)
[2022-03-10] MEDS: NS 1,000 ML IV 1,000 ML IV SCH ×3 (01:58→16:34)
[2022-03-10] MEDS: MORPHINE SULFATE INJ 2 MG INJ IVP PRN (02:15)
[2022-03-10 03:54] LABS: BILIRUBIN,URINE NEGATIVE (NEGATIVE); BLOOD/HEMOGLOBIN,URINE 5+ (NEGATIVE); GLUCOSE, URINE NEGATIVE (NEGATIVE); KETONES,URINE NEGATIVE (NEGATIVE); LEUKOCYTE ESTERASE ,URINE NEGATIVE (NEGATIVE); NITRITES,URINE NEGATIVE (NEGATIVE); PROTEIN,URINE NEGATIVE (NEGATIVE); UROBILINOGEN,URINE NORMAL (NORMAL)
[2022-03-10 04:23] LABS: APPEARANCE,URINE CLEAR (CLEAR); BACTERIA,URINE NEGATIVE /HPF (NEGATIVE); COLOR,URINE PALE YELLOW (YELLOW); RBC,URINE 20-30 /HPF (0-3); SQUAMOUS EPITHELIAL CELL,UR RARE /HPF (NEGATIVE)
[2022-03-10 05:20] LABS: BASOPHILS % (AUTO) 0.2 % (0.2-1.0); EOSINOPHILS # (AUTO) 0.2 x10^3/uL (0.0-0.2); EOSINOPHILS % (AUTO) 3.8 % (0.9-2.9); HEMATOCRIT 37.7 % (42.0-54.0); HEMOGLOBIN 13.2 g/dL (13.5-18.0); LYMPHOCYTES # (AUTO) 0.3 X10^3/uL (1.3-2.9); LYMPHOCYTES % (AUTO) 4.5 % (21.0-51.0); MEAN CORPUSCULAR HEMOGLOBIN 32.5 pg (27.0-34.0); MEAN PLATELET VOLUME 7.7 fL (7.4-11.0); MONOCYTES # (AUTO) 0.4 x10^3/uL (0.3-0.8); NEUTROPHILS # (AUTO) 4.9 x10^3/uL (2.2-4.8); NEUTROPHILS % (AUTO) 84.5 % (42.0-75.0); RED BLOOD COUNT 4.05 X10^6/uL (4.7-6.0); WHITE BLOOD COUNT 5.8 X10^3/uL (3.6-10.0)
[2022-03-10 05:33] LABS: ALBUMIN 2.9 g/dL (3.4-5.0); CALCIUM 8.8 mg/dL (8.5-10.1); CARBON DIOXIDE 23.1 mmol/L (21-32); COR CA(FOR HYPOALB) 9.7 mg/dL (8.5-10.1); CREATININE 1.66 mg/dL (0.70-1.30); TOTAL PROTEIN 6.5 g/dL (6.4-8.2)
[2022-03-10] MEDS: XOPENEX 1.25 MG/3 ML NEBULE NEB SCH ×4 (06:00→20:25)
[2022-03-10] MEDS ORDERED: NORVASC TAB 2.5 MG ONE (08:46)
[2022-03-10] MEDS: DETROL LA 4 MG CAP EXT REL PO SCH (08:49)
[2022-03-10] MEDS: LASIX PO SCH (08:50)
[2022-03-10] MEDS: CYMBALTA PO SCH (08:50)
[2022-03-10] MEDS: MAXZIDE 37.5/25 MG PO SCH (08:51)
[2022-03-10] MEDS: CIPRO TAB 500 MG PO SCH ×2 (08:51→21:50)
[2022-03-10] MEDS: CARDIZEM CD 120 MG 24-HR PO SCH (08:51)
[2022-03-10] MEDS: EXELON PATCH TD SCH (08:52)
[2022-03-10] MEDS: COLACE CAP 100 MG PO SCH ×2 (08:52→21:50)
[2022-03-10] MEDS: FLOMAX PO SCH (08:53)
[2022-03-10] MEDS: MEGACE PO SCH ×2 (08:53→21:49)
[2022-03-10] MEDS: NORVASC TAB 2.5 MG PO SCH (08:53)
[2022-03-10] MEDS: LOVENOX INJ 40 MG SYR SC SCH (08:54)
[2022-03-10] MEDS: ASPIRIN EC 81 MG PO SCH (08:54)
[2022-03-10] MEDS: MICRO K EXTEN CAP 10 MEQ PO SCH (08:54)
[2022-03-10] MEDS: LOPRESSOR TAB 50 MG PO SCH ×2 (08:55→21:50)
[2022-03-10] MEDS: MOBIC TAB 15 MG PO SCH (08:55)
[2022-03-10] MEDS: PriLOSEC PO SCH (08:56)
[2022-03-10] MEDS: MILK OF MAGNESIA PO SCH ×4 (08:56→21:49)
[2022-03-10] MEDS: ARICEPT TAB 5 MG PO SCH (09:00)
--- NOTE | 2022-03-10 10:46 | PCM.PROG ---
Progress Note Progress Note for Day of Date of Exam: 03/10/22 Subjective Subjective: PT IS A 81 YEAR OLD MALE THAT IS CURRENTLY OBSERVATION STATUS FOR TREATMENT OF PERSISTENT ABDOMINAL PAIN, CONSTIPATION, GENERALIZED WEAKNESS, AND CACHEXIA. THIS MORNING PATIENT RESTING COMFORTABLY IN BED. NO ACUTE EVENTS OVERNIGHT. HAS CONSULTED, HAD COLONOSCOPY WITH NO EVIDENCE OF MALIGNANCY. PATIENT DID HAVE SOME URINARY RETENTION AND HAD TO HAVE WEISS PLACED. LABS WERE OBTAINED. WBC 5.8, HGB 13.2, PLT COUNT 236, SODIUM 138, POTASSIUM 3.7, CREATININE 1.66, GLUCOSE 147, HE IS CURRENTLY RECEIVING NORMAL SALINE AT 125 ML/HR, CIPRO 500MG PO BID, XOPENEX NEBS TID, LOVENOX 40MG SQ DAILY, MILK OF MAGNESIA 15ML QID, COLACE 100MG BID, MIRALAX 17G PO HS, MORPHINE SULFATE 1-2MG IV Q4H PRN PAIN THE POTASSIUM AND MAGNESIUM PROTOCOLS, AND HOME MEDICATIONS. PHYSICAL THERAPY HAS EVALUATED AND WORKED WITH PATIENT. THEY RECOMMEND THAT HE CONTINUE TO RECEIVE PHYSICAL THERAPY TO FACILITATE HIGHEST LEVEL OF FUNCTION. IT HAS BEEN DISCUSSED PLACEMENT AT [facility] FOR AN EXTENDED COURSE OF REHAB. THEY ARE IN AGREEMENT WITH PLANS. OTHERWISE, WILL CONTINUE WITH CURRENT PLAN OF CARE. WE PLAN TO FOLLOW-UP WITH AM LABS AND CONTINUE TO MONITOR. Past Medical Family Social History Past Med/Fam/Surg Hx: No changes since H&P Allergies: Allergies Penicillins Allergy (Verified 02/25/20 11:52) Review of Systems ROS: No change since H&P Vital Signs and I&O's Vital Signs: Temperature 98.6 F Pulse Rate 71 Respiratory Rate 21 Blood Pressure [Right Arm] 148/78 Blood Pressure [Left Arm] 179/95 Blood Pressure [Standing] 144/83 Blood Pressure [Sitting] 179/96 Blood Pressure [Lying] 166/87 Blood Pressure 179/88 O2 Sat by Pulse Oximetry 96 Intake and Output: Intake & Output 03/07/22 03/08/22 03/09/22 03/10/22 23:59 23:59 23:59 23:59 Intake Total 5905 / 5905 5480 / 5480 3638 / 3638 1100 / 1100 Output Total 500 / 500 3000 / 3000 Balance 5905 / 5905 5480 / 5480 3138 / 3138 -1900 / -1900 Physical Exam Oriented: Normal Eyes: Normal Ear: Normal Nose: Normal Throat: Normal Respiratory: Generalized and Diminished Cardiovascular: Normal : Normal Auscultation: Bowel Sounds: Normal Tenderness: Diffuse (soft abdomen with mild diffuse tendrness ..) and Mild; negative Rebound and Rigidity Skin: Normal Musculoskeletal: Normal Psychiatric: Normal Mood Description: Calm Affect: Normal Speech Pattern: Clear and Appropriate Laboratory and Diagnostics Result Diagrams: 03/10/22 04:07 03/10/22 04:07 Labs: Laboratory WBC 5.8 X10^3/uL (3.6-10.0) 03/10/22 04:07 RBC 4.05 X10^6/uL (4.7-6.0) L 03/10/22 04:07 Hgb 13.2 g/dL (13.5-18.0) L 03/10/22 04:07 Hct 37.7 % (42.0-54.0) L 03/10/22 04:07 MCV 93.0 fL (80.0-100.0) 03/10/22 04:07 MCH 32.5 pg (27.0-34.0) 03/10/22 04:07 MCHC 35.0 g/dL (33.0-35.0) 03/10/22 04:07 RDW 15.0 % (11.6-16.5) 03/10/22 04:07 Plt Count 236 X10^3/uL (150.0-450.0) 03/10/22 04:07 MPV 7.7 fL (7.4-11.0) 03/10/22 04:07 Neut % (Auto) 84.5 % (42.0-75.0) H 03/10/22 04:07 Lymph % (Auto) 4.5 % (21.0-51.0) L 03/10/22 04:07 [facility] % (Auto) 7.0 % (0.0-13.0) 03/10/22 04:07 Eos % (Auto) 3.8 % (0.9-2.9) H 03/10/22 04:07 Baso % (Auto) 0.2 % (0.2-1.0) 03/10/22 04:07 Neut # (Auto) 4.9 x10^3/uL (2.2-4.8) H 03/10/22 04:07 Lymph # (Auto) 0.3 X10^3/uL (1.3-2.9) L 03/10/22 04:07 [facility] # (Auto) 0.4 x10^3/uL (0.3-0.8) 03/10/22 04:07 Eos # (Auto) 0.2 x10^3/uL (0.0-0.2) 03/10/22 04:07 Baso # (Auto) 0.0 X10^3/uL (0.0-0.1) 03/10/22 04:07 Absolute Nucleated RBC 0.1 /100WBC 03/10/22 04:07 Sodium 138 mmol/L (136-145) 03/10/22 04:07 Corrected Sodium 139 mmol/L (136-145) 03/10/22 04:07 Potassium 3.7 mmol/L (3.5-5.1) 03/10/22 04:07 Chloride 105 mmol/L (98-107) 03/10/22 04:07 Carbon Dioxide 23.1 mmol/L (21-32) 03/10/22 04:07 BUN 16 mg/dL (7-18) 03/10/22 04:07 Creatinine 1.66 mg/dL (0.70-1.30) H 03/10/22 04:07 Est GFR (MDRD) Af Amer 51 (>60) L 03/10/22 04:07 Est GFR (MDRD) Non-Af 42 (>60) L 03/10/22 04:07 Glucose 147 mg/dL (65-99) H 03/10/22 04:07 Calcium 8.8 mg/dL (8.5-10.1) 03/10/22 04:07 Corrected Calcium 9.7 mg/dL (8.5-10.1) 03/10/22 04:07 Magnesium 2.6 mg/dL (1.7-2.9) 03/10/22 04:07 Total Bilirubin 0.60 mg/dL (0.2-1.0) 03/10/22 04:07 AST 27 Units/L (15-37) 03/10/22 04:07 ALT 27 Units/L (12-78) 03/10/22 04:07 Alkaline Phosphatase 113 Units/L (46-116) 03/10/22 04:07 Total Protein 6.5 g/dL (6.4-8.2) 03/10/22 04:07 Albumin 2.9 g/dL (3.4-5.0) L 03/10/22 04:07 Globulin 3.6 g/dL (2.5-4.5) 03/10/22 04:07 Albumin/Globulin Ratio 0.8 Ratio (1.1-2.1) L 03/10/22 04:07 Specimen Type Catherized urine 03/10/22 03:46 Urine Color Pale yellow (YELLOW) 03/10/22 03:46 Urine Appearance Clear (CLEAR) 03/10/22 03:46 Urine pH 7.0 (5.0 - 8.0) 03/10/22 03:46 Ur Specific [place] 1.010 (1.000-1.030) 03/10/22 03:46 Urine Protein Negative (NEGATIVE) 03/10/22 03:46 Urine Glucose (UA) Negative (NEGATIVE) 03/10/22 03:46 Urine Ketones Negative (NEGATIVE) 03/10/22 03:46 Urine Blood 5+ (NEGATIVE) 03/10/22 03:46 Urine Nitrite Negative (NEGATIVE) 03/10/22 03:46 Urine Bilirubin Negative (NEGATIVE) 03/10/22 03:46 Urine Urobilinogen Normal (NORMAL) 03/10/22 03:46 Ur Leukocyte Esterase Negative (NEGATIVE) 03/10/22 03:46 Urine RBC 20-30 /HPF (0-3) A 03/10/22 03:46 Urine WBC None seen /HPF (0-5) 03/10/22 03:46 Ur Squamous Epith Cells Rare /HPF (NEGATIVE) 03/10/22 03:46 Urine Bacteria Negative /HPF (NEGATIVE) 03/10/22 03:46 Ur Culture Indicated? No/not indicated 03/10/22 03:46 Stool Description See comment 03/05/22 13:41 Stool Description See comment 03/05/22 13:41 Stool Neutral Fats Normal (Normal) 03/05/22 21:25 Stool Split Fat Normal (Normal) 03/05/22 21:25 Stl Occult Blood (IFOB) Negative (NEGATIVE) 03/05/22 13:41 Stool for White Cells Negative (NEGATIVE) 03/05/22 13:41 SARS-CoV-2 (PCR) Negative (NEGATIVE) 03/05/22 15:25 Cryptosporid parvum Ag Negative (NEGATIVE) 03/05/22 13:41 Giardia lamblia Ag Negative (NEGATIVE) 03/05/22 13:41 Plan (1) Abdominal pain: Status: Acute Qualifiers: Abdominal location: generalized Qualified Code(s): R10.84 - Generalized abdominal pain Plan: bowel clense, NORMAL SALINE AT 125 ML/HR, CIPRO 500MG PO BID, XOPENEX NEBS TID, LOVENOX 40MG SQ DAILY, MILK OF MAGNESIA 15ML QID, COLACE 100MG BID, MIRALAX 17G PO HS, MORPHINE SULFATE 1-2MG IV Q4H PRN PAIN THE POTASSIUM AND MAGNESIUM PROTOCOLS, AND HIS HOME MEDICATIONS WERE RESUMED (2) Constipation: Status: Acute Qualifiers: Constipation type: unspecified constipation type Qualified Code(s): K59.00 - Constipation, unspecified (3) Cachexia: Status: Acute (4) Generalized weakness: Status: Acute (5) Multiple rib fractures: Status: Acute Qualifiers: Encounter type: subsequent encounter Fracture healing: with routine healing Fracture type: closed Laterality: left Qualified Code(s): S22.42XD - Multiple fractures of ribs, left side, subsequent encounter for fracture with routine healing (6) Chronic systolic (congestive) heart failure: Status: Chronic (7) Dementia: Status: Chronic Qualifiers: Dementia behavioral disturbance: without behavioral disturbance Dementia type: vascular dementia Qualified Code(s): F01.50 - Vascular dementia without behavioral disturbance (8) Diabetes mellitus, type II: Status: Chronic Qualifiers: Diabetes mellitus complication status: with hyperglycemia Diabetes mellitus residential insulin use: with residential use Qualified Code(s): E11.65 - Type 2 diabetes mellitus with hyperglycemia; Z79.4 - half-way (current) use of insulin (9) Hypertension: Status: Chronic Qualifiers: Hypertension type: primary hypertension
[2022-03-10] MEDS: CRESTOR TAB 10 MG PO SCH (21:48)
[2022-03-10] MEDS: RESTORIL CAP 15 MG PO PRN (21:48)
[2022-03-10] MEDS: MIRALAX POWDER (1 DOSE 17 G) PO SCH (21:49)
[2022-03-11] MEDS: NS 1,000 ML IV 1,000 ML IV SCH ×2 (01:37→09:11)
[2022-03-11 04:50] LABS: BASOPHILS % (AUTO) 0.1 % (0.2-1.0); EOSINOPHILS # (AUTO) 0.2 x10^3/uL (0.0-0.2); EOSINOPHILS % (AUTO) 3.8 % (0.9-2.9); HEMATOCRIT 32.3 % (42.0-54.0); HEMOGLOBIN 11.4 g/dL (13.5-18.0); LYMPHOCYTES # (AUTO) 0.3 X10^3/uL (1.3-2.9); LYMPHOCYTES % (AUTO) 4.3 % (21.0-51.0); MEAN CORPUSCULAR HEMOGLOBIN 32.6 pg (27.0-34.0); MEAN CORPUSCULAR HGB CONC 35.4 g/dL (33.0-35.0); MEAN PLATELET VOLUME 7.7 fL (7.4-11.0); MONOCYTES # (AUTO) 0.3 x10^3/uL (0.3-0.8); MONOCYTES % (AUTO) 5.7 % (0.0-13.0); NEUTROPHILS # (AUTO) 5.2 x10^3/uL (2.2-4.8); NEUTROPHILS % (AUTO) 86.1 % (42.0-75.0); RED BLOOD COUNT 3.51 X10^6/uL (4.7-6.0); WHITE BLOOD COUNT 6.1 X10^3/uL (3.6-10.0)
[2022-03-11 05:01] LABS: ALBUMIN 2.4 g/dL (3.4-5.0); CALCIUM 8.3 mg/dL (8.5-10.1); CARBON DIOXIDE 23.3 mmol/L (21-32); COR CA(FOR HYPOALB) 9.6 mg/dL (8.5-10.1); CREATININE 1.51 mg/dL (0.70-1.30); TOTAL PROTEIN 5.7 g/dL (6.4-8.2)
[2022-03-11] MEDS: XOPENEX 1.25 MG/3 ML NEBULE NEB SCH (05:50)
[2022-03-11 08:04] VITALS: BP 178/85
[2022-03-11] MEDS ORDERED: NORVASC TAB 2.5 MG ONE (08:45)
[2022-03-11] MEDS: CIPRO TAB 500 MG PO SCH (08:48)
[2022-03-11] MEDS: LOVENOX INJ 40 MG SYR SC SCH (08:48)
[2022-03-11] MEDS: MEGACE PO SCH (08:49)
[2022-03-11] MEDS: FLOMAX PO SCH (08:49)
[2022-03-11] MEDS: DETROL LA 4 MG CAP EXT REL PO SCH (08:49)
[2022-03-11] MEDS: MICRO K EXTEN CAP 10 MEQ PO SCH (09:04)
[2022-03-11] MEDS: MAXZIDE 37.5/25 MG PO SCH (09:04)
[2022-03-11] MEDS: PriLOSEC PO SCH (09:05)
[2022-03-11] MEDS: MOBIC TAB 15 MG PO SCH (09:05)
[2022-03-11] MEDS: NORVASC TAB 2.5 MG PO SCH (09:05)
[2022-03-11] MEDS: LOPRESSOR TAB 50 MG PO SCH (09:05)
[2022-03-11] MEDS: COLACE CAP 100 MG PO SCH (09:06)
[2022-03-11] MEDS: ASPIRIN EC 81 MG PO SCH (09:07)
[2022-03-11] MEDS: LASIX PO SCH (09:07)
[2022-03-11] MEDS: CYMBALTA PO SCH (09:07)
[2022-03-11] MEDS: MILK OF MAGNESIA PO SCH (09:07)
[2022-03-11] MEDS: CARDIZEM CD 120 MG 24-HR PO SCH (09:07)
[2022-03-11] MEDS: ARICEPT TAB 5 MG PO SCH (09:08)
[2022-03-11] MEDS: EXELON PATCH TD SCH (09:10)
[2022-03-12] MEDS ORDERED: PATIENT'S HOME MEDICATION PO SCH (09:00)
== END 2022-03-11 11:30 | disposition swing bed (61) ==
LOC: ER 12:22 → ICU 12:22
PROVIDERS: ADMIT Internal Medicine; ATTEND Internal Medicine
DX: Z91.81 History of falling; R64 Cachexia; R06.02 Shortness of breath; K59.09 Other constipation; I11.0 Hypertensive heart disease with heart failure; K21.9 Gastro-esophageal reflux disease without esophagitis; E78.2 Mixed hyperlipidemia; R53.1 Weakness; Z79.4 Long term (current) use of insulin; I25.10 Atherosclerotic heart disease of native coronary artery without angina pectoris; F32.89 Other specified depressive episodes; R26.89 Other abnormalities of gait and mobility; Z20.822 Contact with and (suspected) exposure to COVID-19; I50.22 Chronic systolic (congestive) heart failure; J98.11 Atelectasis; F01.50 Vascular dementia, unspecified severity, without behavioral disturbance, psychotic disturbance, mood disturbance, and anxiety; E11.65 Type 2 diabetes mellitus with hyperglycemia; R10.84 Generalized abdominal pain; S22.42XD Multiple fractures of ribs, left side, subsequent encounter for fracture with routine healing; K56.699 Other intestinal obstruction unspecified as to partial versus complete obstruction

== ENCOUNTER 2022-03-11 11:31 | Inpatient (IN) ==
[2022-03-11] MEDS ORDERED: KLOR-CON PO PRN (12:20)
[2022-03-11] MEDS ORDERED: POTASSIUM CHL 60 MEQ/NS 0.45% 500 ML IV PRN (12:20)
[2022-03-11] MEDS ORDERED: POTASSIUM CHLORIDE LIQ 20 MEQ UDC PO PRN (12:20)
[2022-03-11] MEDS ORDERED: MICRO K EXTEN CAP 10 MEQ PO PRN (12:20)
[2022-03-11] MEDS ORDERED: POTASSIUM CHL 40 MEQ/NS 0.45% 500 ML IV PRN (12:20)
[2022-03-11] MEDS ORDERED: K-RIDER 10 MEQ/NS 100 ML 10 MEQ/100 ML BAG IV PRN (12:20)
[2022-03-11] MEDS ORDERED: K-DUR TAB 20 MEQ PO PRN (12:20)
[2022-03-11] MEDS: MILK OF MAGNESIA PO SCH ×3 (12:48→21:21)
[2022-03-11] MEDS: XOPENEX 1.25 MG/3 ML NEBULE NEB SCH ×2 (14:40→21:05)
--- NOTE | 2022-03-11 15:13 | PT/OTEVAL ---
PT/OT OBJECTIVES - HISTORY Prescription: OT eval Diagnosis: pneumothorax, S/P pneumonia, cachexia, Precautions: fall precautions PMH: Arthritis, CHF, Coronary Artery Disease, Depression, Dyslipidemia, GERD and Hypertension Prior Level of Function: Assistance Required Other, comment: per pt report, pt lives at home with home health nurses - COGNITION Mental Status: Alert, Confused, Decreased Safety Awarenes Communication Status: Verbal Ability to Follow Directions: 1 Step Memory Loss: Short term memory loss - PAIN Lower Back Pain Scale: No Pain Comments: [place] nurse aware Left Shoulder Pain Scale: No Pain Comments: No complaints of pain during PT evaluation. - BED MOBILITY Rolling: Minimal Scooting: Moderate Bridging: Moderate - TRANSFERS Supine to Sit: Moderate Sit to Stand: Moderate - ADL'S Feeding: N/A Grooming: N/A Lower Body ADL: Maximum Toileting: Maximum - BALANCE Static Sitting: Fair Standing: Poor Dynamic Sitting: Fair Standing: Poor - NEUROMOTOR/SENSATION Marcel. Upper Ext Sensation: WFL Coordination: WFL Marcel. Lower Ext Sensation: WFL Coordination: WFL - HAND DOMINANCE Extremity Function: Hand Dominance: Right - ROM Right UE Muscle Tone: WFL Left UE Muscle Tone: WFL - STRENGTH Right UE Strength Number: 3 Other comment: RUE strength grossly graded 3+/5 Left UE Strength Number: 3 Bilateral LE Strength Number: 3 Other comment: 4/5 PT/OT ASSESSMENT - PT Problem List: Decreased Bed Mobility, Decreased Balance, Decreased Safety - OT Problem List: Decreased Safety Aware - OT GOALS Senior Care Goals Days: 20 Mobility for ADL's: Pt to complete bed mobility with Trent in order to participate in ADLs. Dressing: Pt to complete UB dressing with setup A. Upper Ext. Strength/Use: Pt to participate in therapeutic exercises in order to improve strength. - PATIENT GOALS Goals Discussed with Patient/Family: Yes Weakness and Barriers: Cognitive Barrier - PLAN Suggested Treatment Plan: Bed Mobility Training, Therapeutic Activity, Self Care Training, Therapeutic Ex with HEP, Patient Education, Family Education - FREQUENCY AND DURATION OT: 5x wk x hospital stay Expected Continuation of Care at Discharge: Determined on Progress Anticipated Equipment Needs: BSC, RW
[2022-03-11] MEDS ORDERED: NS 1,000 ML IV 0 ML ONE (17:14)
--- NOTE | 2022-03-11 19:28 | PT/OTEVAL ---
PT/OT OBJECTIVES - HISTORY Prescription: PT Consult Diagnosis: Pneumothorax, s/p Pneumonia, Cachexia Precautions: Fall Risk, Cognitive Deficits/Decreased Safety Awareness PMH: Arthritis, CHF, CAD, Depression, Dyslipidemia, GERD, HTN, Dementia, Pn eumothorax, R Rib Fractures, Falls, CABG/Valve Sx Prior Level of Function: Assistance Required Other: Prior to hospitalization, pt resides in single story home with no steps to enter. Pt has nurse/caregiver daily and pt's daughter stays with him throughout the night to have 24hr care. Pt was requiring increased assistance lately x 1 and was primarily non-ambulatory due to LE weakness. Pt has wheelchair and walker. - COGNITION Mental Status: Alert, Name, Confused, Decreased Safety Awarenes Communication Status: Verbal Ability to Follow Directions: 1 Step Memory Loss: Short term memory loss, predatory animal exterminator memory loss - PAIN Lower Back Pain Scale: Mild (3-4) Comments: "Ache" Left Shoulder Pain Scale: No Pain Comments: No complaint during evaluation. - BED MOBILITY Rolling: Moderate Scooting: Maximum - TRANSFERS Supine to Sit: Moderate Sit to Stand: Moderate, x2 Sit to Stand Comment: Cues for proper hand placement & safety Sit or Stand Pivot: Moderate, x2 Sit or Stand Pivot Comment: Cues for proper hand placement & safety Safety (requires cues for:): Hand Placement Precaution - BALANCE Static Sitting: Fair Standing: Poor Dynamic Sitting: Fair Standing: Total Assist - NEUROMOTOR/SENSATION Marcel. Upper Ext Sensation: WFL Coordination: WFL Marcel. Lower Ext Sensation: WFL Coordination: WFL - ROM Bilateral LE ROM: WFL Muscle Tone: WFL - STRENGTH Right UE Strength Number: 3 Other comment: RUE strength grossly graded 3+/5 Left UE Strength Number: 3 Other comment: L shoulder NT d/t reports of pain, L elbow, wrist and hand 3/5 Bilateral LE Strength Number: 3 Other comment: 3/5 PT/OT ASSESSMENT - PT Problem List: Decreased Bed Mobility, Decreased Transfers, Decreased Gait, Decreased Balance, Decreased Safety, Decreased LE Strength - PT GOALS Short Term Goals Days: 10 Mobility: Pt will perform bed mobility tasks with mod assist Transfers: Pt will perform functional transfers with mod assist Gait: Pt will ambulate 10ft with FWW with mod assist Balance: Pt will increase static standing balance to fair-/fair Residential Goals Days: 20 Mobility: Pt will perform bed mobility tasks with min assist Transfers: Pt will perform functional transfers with min assist Gait: Pt will ambulate 25ft with FWW with min assist Balance: Pt will increase dynamic standing balance to fair- ROM/Strength: Pt will increase BLE strength to 4+/5 - OT GOALS Cyber Defense Incident Responder Goals Days: 20 Mobility for ADL's: Pt to complete bed mobility with Trent in order to participate in ADLs. Dressing: Pt to complete UB dressing with setup A. Upper Ext. Strength/Use: Pt to participate in therapeutic exercises in order to improve strength. - PATIENT GOALS Patient/Family Goals: "I just want to get home" Goals Discussed with Patient/Family: Yes (With patient) Rehabilitation Potential: Good to meet stated goals Justification for Potential: Facilitate highest level of function & safe discharge planning Weakness and Barriers: Cognitive Barrier If yes, explain: Pt with history of dementia - PLAN Suggested Treatment Plan: Bed Mobility Training, Therapeutic Activity, Gait Training, Neuro Re-education, Therapeutic Ex with HEP, Patient Education, Other - FREQUENCY AND DURATION PT: 5x per week x hospital stay Expected Continuation of Care at Discharge: Home Health
[2022-03-11] MEDS: LOPRESSOR TAB 50 MG PO SCH (21:20)
[2022-03-11] MEDS: MIRALAX POWDER (1 DOSE 17 G) PO SCH (21:20)
[2022-03-11] MEDS: CIPRO TAB 500 MG PO SCH (21:20)
[2022-03-11] MEDS: MEGACE PO SCH (21:21)
[2022-03-11] MEDS: CRESTOR TAB 10 MG PO SCH (21:21)
[2022-03-11] MEDS: RESTORIL CAP 15 MG PO PRN (21:22)
[2022-03-11] MEDS: COLACE CAP 100 MG PO SCH (21:22)
[2022-03-12] MEDS: XOPENEX 1.25 MG/3 ML NEBULE NEB SCH ×3 (06:20→21:25)
[2022-03-12] MEDS ORDERED: NORVASC TAB 2.5 MG ONE (08:59)
[2022-03-12] MEDS: COLACE CAP 100 MG PO SCH ×2 (09:01→21:37)
[2022-03-12] MEDS: ASPIRIN EC 81 MG PO SCH (09:01)
[2022-03-12] MEDS: LOPRESSOR TAB 50 MG PO SCH ×2 (09:02→21:39)
[2022-03-12] MEDS: MICRO K EXTEN CAP 10 MEQ PO SCH (09:02)
[2022-03-12] MEDS: FLOMAX PO SCH (09:03)
[2022-03-12] MEDS: MAXZIDE 37.5/25 MG PO SCH (09:03)
[2022-03-12] MEDS: PriLOSEC PO SCH (09:04)
[2022-03-12] MEDS: MILK OF MAGNESIA PO SCH ×4 (09:04→21:37)
[2022-03-12] MEDS: MEGACE PO SCH ×2 (09:04→21:37)
[2022-03-12] MEDS: CYMBALTA PO SCH (09:05)
[2022-03-12] MEDS: CARDIZEM CD 120 MG 24-HR PO SCH (09:05)
[2022-03-12] MEDS: CIPRO TAB 500 MG PO SCH ×2 (09:06→21:36)
[2022-03-12] MEDS: EXELON PATCH TD SCH (09:06)
[2022-03-12] MEDS: LASIX PO SCH (09:07)
[2022-03-12] MEDS: NORVASC TAB 2.5 MG PO SCH (09:07)
[2022-03-12] MEDS: LOVENOX INJ 40 MG SYR SC SCH (09:08)
[2022-03-12] MEDS: MOBIC TAB 15 MG PO SCH (09:08)
[2022-03-12] MEDS: ARICEPT TAB 5 MG PO SCH (09:08)
--- NOTE | 2022-03-12 09:09 | DR.UPDATE ---
H&P Update History and Physical Update: History and Physical reviewed and patient examined. Changes noted: Yes with the following: IS INPATIENT STATUS. HE WAS CHANGED TO A SWINGBED FOR PHYSICAL THERAPY AND REHABILITATION DUE TO PHYSICAL DECONDITIONING. WE WILL RESUME HIS HOME MEDICATIONS WELL LOVENOX 40MG SC DAILY AND THE POTASSIUM PROTOCOL. PHYSICAL THERAPY WILL WORK WITH HIM DAILY WHILE HE IS IN THE HOSPITAL. OTHERWISE, WE WILL MONITOR PATIENT AND LABS AND MAKE CHANGES APPROPRIATE. TIME SPENT ON CLINICAL ASSESSMENT, REVIWING LABS AND IMAGING, DECISION MAKING, AND DOCUMENTATION GREATER THAN 45 MINUTES. H&P Reviewed: Yes Patient was examined?: Yes
[2022-03-12] MEDS: PATIENT'S HOME MEDICATION PO SCH (13:03)
[2022-03-12] MEDS: ULTRAM PO PRN (17:46)
[2022-03-12] MEDS: MIRALAX POWDER (1 DOSE 17 G) PO SCH (21:37)
[2022-03-12] MEDS: CRESTOR TAB 10 MG PO SCH (21:38)
[2022-03-12] MEDS: RESTORIL CAP 15 MG PO PRN (21:39)
[2022-03-13] MEDS: XOPENEX 1.25 MG/3 ML NEBULE NEB SCH ×3 (05:25→20:55)
[2022-03-13] MEDS ORDERED: NORVASC TAB 2.5 MG ONE (09:27)
[2022-03-13] MEDS: PriLOSEC PO SCH (09:35)
[2022-03-13] MEDS: MEGACE PO SCH ×2 (09:35→20:46)
[2022-03-13] MEDS: COLACE CAP 100 MG PO SCH (09:35)
[2022-03-13] MEDS: MOBIC TAB 15 MG PO SCH (09:35)
[2022-03-13] MEDS: CYMBALTA PO SCH (09:35)
[2022-03-13] MEDS: LASIX PO SCH (09:35)
[2022-03-13] MEDS: MILK OF MAGNESIA PO SCH ×2 (09:35→10:21)
[2022-03-13] MEDS: NORVASC TAB 2.5 MG PO SCH (09:35)
[2022-03-13] MEDS: ARICEPT TAB 5 MG PO SCH (09:35)
[2022-03-13] MEDS: MAXZIDE 37.5/25 MG PO SCH (09:35)
[2022-03-13] MEDS: PATIENT'S HOME MEDICATION PO SCH (09:35)
[2022-03-13] MEDS: CIPRO TAB 500 MG PO SCH ×2 (09:35→20:49)
[2022-03-13] MEDS: FLOMAX PO SCH (09:35)
[2022-03-13] MEDS: MICRO K EXTEN CAP 10 MEQ PO SCH (09:35)
[2022-03-13] MEDS: LOPRESSOR TAB 50 MG PO SCH ×2 (09:35→20:46)
[2022-03-13] MEDS: LOVENOX INJ 40 MG SYR SC SCH (09:35)
[2022-03-13] MEDS: CARDIZEM CD 120 MG 24-HR PO SCH (09:35)
[2022-03-13] MEDS: ASPIRIN EC 81 MG PO SCH (09:35)
[2022-03-13] MEDS: EXELON PATCH TD SCH (10:22)
[2022-03-13] MEDS: CRESTOR TAB 10 MG PO SCH (20:45)
[2022-03-13] MEDS: RESTORIL CAP 15 MG PO PRN (20:47)
[2022-03-13] MEDS: XANAX PO PRN (20:47)
[2022-03-14] MEDS: XOPENEX 1.25 MG/3 ML NEBULE NEB SCH ×3 (05:48→20:56)
[2022-03-14 05:57] LABS: BASOPHILS # (AUTO) 0.1 X10^3/uL (0.0-0.1); BASOPHILS % (AUTO) 1.1 % (0.2-1.0); EOSINOPHILS # (AUTO) 0.4 x10^3/uL (0.0-0.2); EOSINOPHILS % (AUTO) 6.9 % (0.9-2.9); HEMATOCRIT 37.2 % (42.0-54.0); HEMOGLOBIN 13.1 g/dL (13.5-18.0); LYMPHOCYTES # (AUTO) 0.2 X10^3/uL (1.3-2.9); LYMPHOCYTES % (AUTO) 4.1 % (21.0-51.0); MEAN CORPUSCULAR HEMOGLOBIN 32.5 pg (27.0-34.0); MEAN CORPUSCULAR HGB CONC 35.1 g/dL (33.0-35.0); MEAN CORPUSCULAR VOLUME 92.6 fL (80.0-100.0); MEAN PLATELET VOLUME 7.6 fL (7.4-11.0); MONOCYTES # (AUTO) 0.5 x10^3/uL (0.3-0.8); MONOCYTES % (AUTO) 8.3 % (0.0-13.0); NEUTROPHILS # (AUTO) 4.5 x10^3/uL (2.2-4.8); NEUTROPHILS % (AUTO) 79.6 % (42.0-75.0); RED BLOOD COUNT 4.02 X10^6/uL (4.7-6.0); RED CELL DISTRIBUTION WIDTH 15.4 % (11.6-16.5); WHITE BLOOD COUNT 5.7 X10^3/uL (3.6-10.0)
[2022-03-14 06:09] LABS: ALBUMIN 2.7 g/dL (3.4-5.0); CALCIUM 8.9 mg/dL (8.5-10.1); CARBON DIOXIDE 25.8 mmol/L (21-32); COR CA(FOR HYPOALB) 9.9 mg/dL (8.5-10.1); CREATININE 1.46 mg/dL (0.70-1.30); TOTAL PROTEIN 6.7 g/dL (6.4-8.2)
[2022-03-14] MEDS ORDERED: NORVASC TAB 2.5 MG ONE (09:15)
[2022-03-14] MEDS: FLOMAX PO SCH (09:30)
[2022-03-14] MEDS: PATIENT'S HOME MEDICATION PO SCH (09:30)
[2022-03-14] MEDS: LOVENOX INJ 40 MG SYR SC SCH (09:30)
[2022-03-14] MEDS: ASPIRIN EC 81 MG PO SCH (09:30)
[2022-03-14] MEDS: LASIX PO SCH (09:30)
[2022-03-14] MEDS: MEGACE PO SCH ×2 (09:30→20:37)
[2022-03-14] MEDS: PriLOSEC PO SCH (09:30)
[2022-03-14] MEDS: MAXZIDE 37.5/25 MG PO SCH (09:30)
[2022-03-14] MEDS: CIPRO TAB 500 MG PO SCH ×2 (09:30→20:35)
[2022-03-14] MEDS: CYMBALTA PO SCH (09:30)
[2022-03-14] MEDS: CARDIZEM CD 120 MG 24-HR PO SCH (09:30)
[2022-03-14] MEDS: MOBIC TAB 15 MG PO SCH (09:30)
[2022-03-14] MEDS: LOPRESSOR TAB 50 MG PO SCH ×2 (09:30→20:37)
[2022-03-14] MEDS: MICRO K EXTEN CAP 10 MEQ PO SCH (09:30)
[2022-03-14] MEDS: NORVASC TAB 2.5 MG PO SCH (09:30)
[2022-03-14] MEDS: ARICEPT TAB 5 MG PO SCH (10:00)
[2022-03-14] MEDS: ULTRAM PO PRN ×2 (11:42→20:40)
[2022-03-14 12:18] LABS: BILIRUBIN,URINE NEGATIVE (NEGATIVE); BLOOD/HEMOGLOBIN,URINE 4+ (NEGATIVE); GLUCOSE, URINE NEGATIVE (NEGATIVE); KETONES,URINE NEGATIVE (NEGATIVE); LEUKOCYTE ESTERASE ,URINE 3+ (NEGATIVE); NITRITES,URINE POSITIVE (NEGATIVE); PROTEIN,URINE 2+ (NEGATIVE); UROBILINOGEN,URINE NORMAL (NORMAL)
[2022-03-14 12:24] LABS: APPEARANCE,URINE CLOUDY (CLEAR); COLOR,URINE PALE YELLOW (YELLOW)
[2022-03-14 12:39] LABS: SQUAMOUS EPITHELIAL CELL,UR RARE /HPF (NEGATIVE)
[2022-03-14 12:40] LABS: BACTERIA,URINE 3+ /HPF (NEGATIVE)
[2022-03-14] MEDS: NYSTATIN SUSP PO SCH ×4 (14:24→20:38)
[2022-03-14] MEDS ORDERED: ROCEPHIN VIAL 1 GRAM 1 G in NS 100 ML IV 100 ML IV SCH (16:30)
[2022-03-14] MEDS: EXELON PATCH TD SCH (18:24)
[2022-03-14] MEDS: CRESTOR TAB 10 MG PO SCH (20:37)
[2022-03-14] MEDS: VIBRAMYCIN PO SCH (20:38)
[2022-03-14] MEDS: XANAX PO PRN (20:39)
[2022-03-14] MEDS: RESTORIL CAP 15 MG PO PRN (20:39)
[2022-03-15] MEDS: XOPENEX 1.25 MG/3 ML NEBULE NEB SCH ×3 (05:57→20:10)
[2022-03-15] MEDS ORDERED: NORVASC TAB 2.5 MG ONE (07:17)
[2022-03-15] MEDS: FLOMAX PO SCH (09:02)
[2022-03-15] MEDS: MAXZIDE 37.5/25 MG PO SCH (09:02)
[2022-03-15] MEDS: CIPRO TAB 500 MG PO SCH ×2 (09:02→21:21)
[2022-03-15] MEDS: VIBRAMYCIN PO SCH ×2 (09:02→21:21)
[2022-03-15] MEDS: ASPIRIN EC 81 MG PO SCH (09:02)
[2022-03-15] MEDS: CYMBALTA PO SCH (09:02)
[2022-03-15] MEDS: CARDIZEM CD 120 MG 24-HR PO SCH (09:03)
[2022-03-15] MEDS: MEGACE PO SCH ×2 (09:05→21:22)
[2022-03-15] MEDS: LASIX PO SCH (09:05)
[2022-03-15] MEDS: LOPRESSOR TAB 50 MG PO SCH ×2 (09:05→21:22)
[2022-03-15] MEDS: ARICEPT TAB 5 MG PO SCH (09:05)
[2022-03-15] MEDS: NORVASC TAB 2.5 MG PO SCH (09:06)
[2022-03-15] MEDS: MOBIC TAB 15 MG PO SCH (09:06)
[2022-03-15] MEDS: MICRO K EXTEN CAP 10 MEQ PO SCH (09:06)
[2022-03-15] MEDS: PATIENT'S HOME MEDICATION PO SCH (09:07)
[2022-03-15] MEDS: PriLOSEC PO SCH (09:07)
[2022-03-15] MEDS: NYSTATIN SUSP PO SCH ×4 (09:07→21:21)
[2022-03-15] MEDS: LOVENOX INJ 40 MG SYR SC SCH (09:30)
[2022-03-15] MEDS: EXELON PATCH TD SCH (09:45)
[2022-03-15] MEDS: MAGNESIUM SULFATE 1 GRAM/100 mL PREMIX 1 G/100 ML BAG IV PRN (11:00)
[2022-03-15] MEDS ORDERED: MAG-OX TAB PO ONE (12:06)
[2022-03-15] MEDS: CRESTOR TAB 10 MG PO SCH (21:21)
[2022-03-15] MEDS: RESTORIL CAP 15 MG PO PRN (21:23)
[2022-03-15] MEDS: XANAX PO PRN (21:27)
[2022-03-15] MEDS: ULTRAM PO PRN (21:27)
[2022-03-16] MEDS: XOPENEX 1.25 MG/3 ML NEBULE NEB SCH ×3 (05:00→20:40)
[2022-03-16 05:01] LABS: MAGNESIUM 1.9 mg/dL (1.7-2.9)
[2022-03-16] MEDS ORDERED: NORVASC TAB 2.5 MG ONE (08:29)
[2022-03-16] MEDS: ASPIRIN EC 81 MG PO SCH (08:44)
[2022-03-16] MEDS: PriLOSEC PO SCH (08:45)
[2022-03-16] MEDS: NYSTATIN SUSP PO SCH ×4 (08:45→21:09)
[2022-03-16] MEDS: ARICEPT TAB 5 MG PO SCH (08:45)
[2022-03-16] MEDS: CARDIZEM CD 120 MG 24-HR PO SCH (08:46)
[2022-03-16] MEDS: VIBRAMYCIN PO SCH ×2 (08:46→21:09)
[2022-03-16] MEDS: FLOMAX PO SCH (08:46)
[2022-03-16] MEDS: CYMBALTA PO SCH (08:46)
[2022-03-16] MEDS: MOBIC TAB 15 MG PO SCH (08:46)
[2022-03-16] MEDS: EXELON PATCH TD SCH (08:46)
[2022-03-16] MEDS: NORVASC TAB 2.5 MG PO SCH (08:47)
[2022-03-16] MEDS: LOPRESSOR TAB 50 MG PO SCH ×2 (08:47→21:08)
[2022-03-16] MEDS: LASIX PO SCH (08:47)
[2022-03-16] MEDS: MICRO K EXTEN CAP 10 MEQ PO SCH (08:47)
[2022-03-16] MEDS: MAXZIDE 37.5/25 MG PO SCH (08:47)
[2022-03-16] MEDS: CIPRO TAB 500 MG PO SCH ×2 (08:47→21:07)
[2022-03-16] MEDS: MEGACE PO SCH ×2 (08:48→21:09)
[2022-03-16] MEDS: PATIENT'S HOME MEDICATION PO SCH (08:48)
[2022-03-16] MEDS: LOVENOX INJ 40 MG SYR SC SCH (08:50)
[2022-03-16] MEDS: ULTRAM PO PRN ×2 (13:45→21:11)
[2022-03-16] MEDS: CRESTOR TAB 10 MG PO SCH (21:08)
[2022-03-16] MEDS: COLACE CAP 100 MG PO SCH (21:08)
[2022-03-16] MEDS: RESTORIL CAP 15 MG PO PRN (21:10)
[2022-03-16] MEDS: XANAX PO PRN (21:11)
[2022-03-17 04:58] LABS: BASOPHILS % (AUTO) 0.2 % (0.2-1.0); EOSINOPHILS # (AUTO) 0.5 x10^3/uL (0.0-0.2); EOSINOPHILS % (AUTO) 9.1 % (0.9-2.9); HEMATOCRIT 37.3 % (42.0-54.0); LYMPHOCYTES # (AUTO) 0.5 X10^3/uL (1.3-2.9); LYMPHOCYTES % (AUTO) 9.1 % (21.0-51.0); MEAN CORPUSCULAR HEMOGLOBIN 32.3 pg (27.0-34.0); MEAN CORPUSCULAR HGB CONC 34.9 g/dL (33.0-35.0); MEAN CORPUSCULAR VOLUME 92.5 fL (80.0-100.0); MEAN PLATELET VOLUME 7.9 fL (7.4-11.0); MONOCYTES # (AUTO) 0.5 x10^3/uL (0.3-0.8); NEUTROPHILS # (AUTO) 3.7 x10^3/uL (2.2-4.8); NEUTROPHILS % (AUTO) 71.6 % (42.0-75.0); RED BLOOD COUNT 4.03 X10^6/uL (4.7-6.0); RED CELL DISTRIBUTION WIDTH 15.1 % (11.6-16.5); WHITE BLOOD COUNT 5.1 X10^3/uL (3.6-10.0)
[2022-03-17 05:31] LABS: ALBUMIN 2.7 g/dL (3.4-5.0); CALCIUM 8.9 mg/dL (8.5-10.1); CARBON DIOXIDE 25.6 mmol/L (21-32); COR CA(FOR HYPOALB) 9.9 mg/dL (8.5-10.1); CREATININE 1.94 mg/dL (0.70-1.30); TOTAL PROTEIN 6.8 g/dL (6.4-8.2)
[2022-03-17] MEDS ORDERED: NORVASC TAB 2.5 MG ONE (08:51)
[2022-03-17] MEDS: PriLOSEC PO SCH (08:59)
[2022-03-17] MEDS: COLACE CAP 100 MG PO SCH ×2 (09:00→21:44)
[2022-03-17] MEDS: VIBRAMYCIN PO SCH ×2 (09:00→21:45)
[2022-03-17] MEDS: MICRO K EXTEN CAP 10 MEQ PO SCH (09:00)
[2022-03-17] MEDS: MOBIC TAB 15 MG PO SCH (09:00)
[2022-03-17] MEDS: CYMBALTA PO SCH (09:01)
[2022-03-17] MEDS: LOPRESSOR TAB 50 MG PO SCH ×2 (09:01→21:45)
[2022-03-17] MEDS: NORVASC TAB 2.5 MG PO SCH (09:01)
[2022-03-17] MEDS: CARDIZEM CD 120 MG 24-HR PO SCH (09:01)
[2022-03-17] MEDS: ASPIRIN EC 81 MG PO SCH (09:01)
[2022-03-17] MEDS: ARICEPT TAB 5 MG PO SCH (09:01)
[2022-03-17] MEDS: CIPRO TAB 500 MG PO SCH ×2 (09:02→21:44)
[2022-03-17] MEDS: MAXZIDE 37.5/25 MG PO SCH (09:02)
[2022-03-17] MEDS: FLOMAX PO SCH (09:03)
[2022-03-17] MEDS: LASIX PO SCH (09:03)
[2022-03-17] MEDS: EXELON PATCH TD SCH (09:03)
[2022-03-17] MEDS: PATIENT'S HOME MEDICATION PO SCH (09:04)
[2022-03-17] MEDS: NYSTATIN SUSP PO SCH ×4 (09:05→21:45)
[2022-03-17] MEDS: MEGACE PO SCH ×2 (09:05→21:45)
[2022-03-17] MEDS: LOVENOX INJ 40 MG SYR SC SCH (13:34)
[2022-03-17] MEDS: NS 1,000 ML IV 1,000 ML IV SCH (13:51)
[2022-03-17] MEDS: XOPENEX 1.25 MG/3 ML NEBULE NEB SCH ×2 (13:55→21:20)
[2022-03-17] MEDS: CRESTOR TAB 10 MG PO SCH (21:44)
[2022-03-18] MEDS: NS 1,000 ML IV 1,000 ML IV SCH ×2 (03:40→18:19)
[2022-03-18] MEDS: XOPENEX 1.25 MG/3 ML NEBULE NEB SCH ×4 (05:27→21:51)
[2022-03-18] MEDS ORDERED: NORVASC TAB 2.5 MG ONE (09:18)
[2022-03-18] MEDS: CARDIZEM CD 120 MG 24-HR PO SCH (09:21)
[2022-03-18] MEDS: ASPIRIN EC 81 MG PO SCH (09:21)
[2022-03-18] MEDS: ARICEPT TAB 5 MG PO SCH (09:21)
[2022-03-18] MEDS: CIPRO TAB 500 MG PO SCH (09:22)
[2022-03-18] MEDS: COLACE CAP 100 MG PO SCH ×2 (09:22→21:27)
[2022-03-18] MEDS: CYMBALTA PO SCH (09:23)
[2022-03-18] MEDS: FLOMAX PO SCH (09:23)
[2022-03-18] MEDS: LASIX PO SCH (09:24)
[2022-03-18] MEDS: LOPRESSOR TAB 50 MG PO SCH ×2 (09:24→21:28)
[2022-03-18] MEDS: LOVENOX INJ 40 MG SYR SC SCH (09:24)
[2022-03-18] MEDS: MICRO K EXTEN CAP 10 MEQ PO SCH (09:26)
[2022-03-18] MEDS: MEGACE PO SCH ×2 (09:26→21:28)
[2022-03-18] MEDS: MAXZIDE 37.5/25 MG PO SCH (09:26)
[2022-03-18] MEDS: MOBIC TAB 15 MG PO SCH (09:27)
[2022-03-18] MEDS: NORVASC TAB 2.5 MG PO SCH (09:27)
[2022-03-18] MEDS: VIBRAMYCIN PO SCH (09:28)
[2022-03-18] MEDS: NYSTATIN SUSP PO SCH ×4 (09:28→21:28)
[2022-03-18] MEDS: PriLOSEC PO SCH (09:28)
[2022-03-18] MEDS: PATIENT'S HOME MEDICATION PO SCH (09:30)
--- NOTE | 2022-03-18 10:09 | PCM.PROG ---
Progress Note - Progress Note for Day of Date of Exam: 03/14/22 - Subjective Subjective: IS CURRENTLY INPATIENT, SWINGBED STATUS FOR PHYSCIAL THERAPY AND REHABILITATION DUE TO DECONDITIONING AND SEVERE WEAKNESS. HE IS ALSO RECEIVING ANTIBIOTICS FOR A UTI. TODAY, HE IS ALERT AND ORIENTED, LYING IN BED ON MORNING ROUNDS. HE CONTINUES WITH COMPLAINS OF GENERALIZED WEAKNESS. STAFF REPORTS THAT HE REQUIRES MODERATE ASSISTANCE WITH AMBULATION. THEY ALSO REPORT THAT HE CONTINUES WITH CONFUSION AT TIMES. ON EXAMINATION, HEART IS REGULAR IN RATE AND RHYTHM. BILATERAL LUNGS NOTED WITH DIMINISHED LUNG SOUNDS THROUGHOUT. ABDOMEN IS ROUND, SOFT, AND NON-TENDER WITH NORMAL BOWEL SOUNDS NOTED IN ALL QUADRANTS. NO UPPER OR LOWER EXTREMITY EDEMA IS NOTED. HIS VITALS THIS MORNING ARE: 98.7-76-12-96%-176/92. LABS WERE OBTAINED. WBC 5.7, RBC 4.02, HGB 13.1, HCT 37.2, PLT COUNT 222, SODIUM 133, POTASSIUM 3.6, CHLORIDE 100, BUN 17, CREATININE 1.46, GLUCOSE 129, CALCIUM 8.9, AST 25, ALT 35, ALK PHOS 124, TOTAL PROTIEN 6.7, ALBUMIN 2.7. HE IS CURRENTLY RECEIVING CIPRO 500MG PO BID, DOXYCYCLINE 100MG PO BID, XOPENEX NEBS TID, XANAX 0.25MG PO BID PRN, AMLODIPINE 2.5MG PO DAILY, ECOTRIN 81MG PO DAILY, CARDIZEM CD 120MG PO DAILY, COLACE 100MG PO BID, ARICEPT 5MG PO DAILY, CYMBALTA 60MG PO DAILY, LOVENOX 40MG SC DAILY, LASIX 20MG PO DAILY, MEGACE 40MG PO BID, MOBIC 7.5MG PO DAILY, LOPRESSOR 50MG PO BID, NYSTATIN SUSPENSION 5ML PO QID, EXELON PATCH DAILY, CRESTOR 20MG PO HS, FLOMAX 0.4MG PO DAILY, RESTORIL 15MG PO HS PRN, ULTRAM 50MG PO TID PRN, AND MAXZIDE 37.5/25MG PO DAILY. HE HAS BEEN COOPERATIVE WITH PHYSICAL THERAPY. WE WILL CONTINUE WITH CURRENT PLAN OF CARE TODAY. OTHERWISE, WE PLAN TO FOLLOW-UP WITH AM LABS AND CONTINUE TO MONITOR. TIME SPENT ON CLINICAL ASSESSMENT, REVIEWING LABS AND IMAGING, DECISION MAKING, AND DOCUMENTATION GREATER THAN 45 MINUTES. - Past Medical Family Social History Past Med/Fam/Surg Hx: No changes since H&P Allergies: Allergies Penicillins Allergy (Verified 02/25/20 11:52) - Review of Systems ROS: No change since H&P - Vital Signs and I&O's Vital Signs: Temperature 97.7 F Pulse Rate [Apical] 78 Pulse Rate 72 Respiratory Rate 18 Blood Pressure [Right Arm] 164/90 Blood Pressure [Left Arm] 117/78 Blood Pressure [Standing] 144/83 Blood Pressure [Sitting] 179/96 Blood Pressure [Lying] 166/87 Blood Pressure 178/85 O2 Sat by Pulse Oximetry 96 Intake and Output: Intake & Output 03/15/22 03/16/22 03/17/22 03/18/22 11:59 11:59 11:59 11:59 Intake Total 345 / 345 920 / 920 380 / 380 2754 / 2754 Output Total 500 / 500 Balance -155 / -155 920 / 920 380 / 380 2754 / 2754 - Physical Exam Oriented: Normal Eyes: Normal Ear: Normal Nose: Normal Throat: Normal Respiratory: Generalized, Diminished : Normal Auscultation: Bowel Sounds: Normal Palpation: Normal Tenderness: Normal Skin: Normal Musculoskeletal: Normal Psychiatric: Normal Mood Description: Calm Affect: Normal Speech Pattern: Clear - Laboratory and Diagnostics Result Diagrams: 03/17/22 03:45 03/17/22 03:45 Labs: 03/14/22 12:05 Urine,Catheterized Urine Culture - Final Escherichia Coli Laboratory WBC 5.1 X10^3/uL (3.6-10.0) 03/17/22 03:45 RBC 4.03 X10^6/uL (4.7-6.0) L 03/17/22 03:45 Hgb 13.0 g/dL (13.5-18.0) L 03/17/22 03:45 Hct 37.3 % (42.0-54.0) L 03/17/22 03:45 MCV 92.5 fL (80.0-100.0) 03/17/22 03:45 MCH 32.3 pg (27.0-34.0) 03/17/22 03:45 MCHC 34.9 g/dL (33.0-35.0) 03/17/22 03:45 RDW 15.1 % (11.6-16.5) 03/17/22 03:45 Plt Count 246 X10^3/uL (150.0-450.0) 03/17/22 03:45 MPV 7.9 fL (7.4-11.0) 03/17/22 03:45 Neut % (Auto) 71.6 % (42.0-75.0) 03/17/22 03:45 Lymph % (Auto) 9.1 % (21.0-51.0) L 03/17/22 03:45 [place] % (Auto) 10.0 % (0.0-13.0) 03/17/22 03:45 Eos % (Auto) 9.1 % (0.9-2.9) H 03/17/22 03:45 Baso % (Auto) 0.2 % (0.2-1.0) 03/17/22 03:45 Neut # (Auto) 3.7 x10^3/uL (2.2-4.8) 03/17/22 03:45 Lymph # (Auto) 0.5 X10^3/uL (1.3-2.9) L 03/17/22 03:45 [place] # (Auto) 0.5 x10^3/uL (0.3-0.8) 03/17/22 03:45 Eos # (Auto) 0.5 x10^3/uL (0.0-0.2) H 03/17/22 03:45 Baso # (Auto) 0.0 X10^3/uL (0.0-0.1) 03/17/22 03:45 Absolute Nucleated RBC 0.1 /100WBC 03/17/22 03:45 Sodium 138 mmol/L (136-145) 03/17/22 03:45 Corrected Sodium 140 mmol/L (136-145) 03/17/22 03:45 Potassium 3.6 mmol/L (3.5-5.1) 03/17/22 03:45 Chloride 104 mmol/L (98-107) 03/17/22 03:45 Carbon Dioxide 25.6 mmol/L (21-32) 03/17/22 03:45 BUN 32 mg/dL (7-18) H 03/17/22 03:45 Creatinine 1.94 mg/dL (0.70-1.30) H 03/17/22 03:45 Est GFR (MDRD) Af Amer 43 (>60) L 03/17/22 03:45 Est GFR (MDRD) Non-Af 35 (>60) L 03/17/22 03:45 Glucose 179 mg/dL (65-99) H 03/17/22 03:45 Calcium 8.9 mg/dL (8.5-10.1) 03/17/22 03:45 Corrected Calcium 9.9 mg/dL (8.5-10.1) 03/17/22 03:45 Magnesium 1.9 mg/dL (1.7-2.9) 03/16/22 04:31 Total Bilirubin 0.40 mg/dL (0.2-1.0) 03/17/22 03:45 AST 28 Units/L (15-37) 03/17/22 03:45 ALT 36 Units/L (12-78) 03/17/22 03:45 Alkaline Phosphatase 113 Units/L (46-116) 03/17/22 03:45 Total Protein 6.8 g/dL (6.4-8.2) 03/17/22 03:45 Albumin 2.7 g/dL (3.4-5.0) L 03/17/22 03:45 Globulin 4.1 g/dL (2.5-4.5) 03/17/22 03:45 Albumin/Globulin Ratio 0.7 Ratio (1.1-2.1) L 03/17/22 03:45 Specimen Type Catherized urine 03/14/22 12:05 Urine Color Pale yellow (YELLOW) 03/14/22 12:05 Urine Appearance Cloudy (CLEAR) 03/14/22 12:05 Urine pH 7.0 (5.0 - 8.0) 03/14/22 12:05 Ur Specific [place] 1.015 (1.000-1.030) 03/14/22 12:05 Urine Protein 2+ (NEGATIVE) 03/14/22 12:05 Urine Glucose (UA) Negative (NEGATIVE) 03/14/22 12:05 Urine Ketones Negative (NEGATIVE) 03/14/22 12:05 Urine Blood 4+ (NEGATIVE) 03/14/22 12:05 Urine Nitrite Positive (NEGATIVE) 03/14/22 12:05 Urine Bilirubin Negative (NEGATIVE) 03/14/22 12:05 Urine Urobilinogen Normal (NORMAL) 03/14/22 12:05 Ur Leukocyte Esterase 3+ (NEGATIVE) 03/14/22 12:05 Urine RBC 5-10 /HPF (0-3) A 03/14/22 12:05 Urine WBC 10-20 /HPF (0-5) A 03/14/22 12:05 Ur Squamous Epith Cells Rare /HPF (NEGATIVE) 03/14/22 12:05 Amorphous Sediment Trace /HPF (NEGATIVE) 03/14/22 12:05 Urine Bacteria 3+ /HPF (NEGATIVE) 03/14/22 12:05 Ur Culture Indicated? Yes/culture set up 03/14/22 12:05 - Plan (1) Generalized weakness Status: Acute Plan: PHYSICAL THERAPY, CIPRO 500MG PO BID, DOXYCYCLINE 100MG PO BID, XOPENEX NEBS TID, XANAX 0.25MG PO BID PRN, AMLODIPINE 2.5MG PO DAILY, ECOTRIN 81MG PO DAILY, CARDIZEM CD 120MG PO DAILY, COLACE 100MG PO BID, ARICEPT 5MG PO DAILY, CYMBALTA 60MG PO DAILY, LOVENOX 40MG SC DAILY, LASIX 20MG PO DAILY, MEGACE 40MG PO BID, MOBIC 7.5MG PO DAILY, LOPRESSOR 50MG PO BID, NYSTATIN SUSPENSION 5ML PO QID, EXELON PATCH DAILY, CRESTOR 20MG PO HS, FLOMAX 0.4MG PO DAILY, RESTORIL 15MG PO HS PRN, ULTRAM 50MG PO TID PRN, AND MAXZIDE 37.5/25MG PO DAILY. (2) Urinary tract infection Status: Acute Qualifiers: Urinary tract infection type: acute cystitis Hematuria presence: without hematuria Qualified Code(s): N30.00 - Acute cystitis without hematuria (3) Diabetes mellitus, type II Status: Chronic Qualifiers: Diabetes mellitus half-way insulin use: with half-way use Diabetes mellitus complication status: with hyperglycemia Qualified Code(s): E11.65 - Type 2 diabetes mellitus with hyperglycemia; Z79.4 - vermin exterminator (current) use of insulin (4) Hypertension Status: Chronic Qualifiers: Hypertension type: primary hypertension (5) Chronic systolic (congestive) heart failure Status: Chronic (6) Dementia Status: Chronic Qualifiers: Dementia type: unspecified type Dementia behavioral disturbance: without behavioral disturbance Qualified Code(s): F03.90 - Unspecified dementia without behavioral disturbance
[2022-03-18] MEDS: EXELON PATCH TD SCH (11:43)
[2022-03-18] MEDS: INVanz INJ 1 GRAM VIAL 1 G in NS 100 ML IV 100 ML IV SCH (12:50)
[2022-03-18] MEDS: CRESTOR TAB 10 MG PO SCH (21:27)
[2022-03-19] MEDS: XOPENEX 1.25 MG/3 ML NEBULE NEB SCH ×3 (05:15→20:45)
[2022-03-19] MEDS: NS 1,000 ML IV 1,000 ML IV SCH ×4 (05:34→22:23)
[2022-03-19] MEDS ORDERED: NORVASC TAB 2.5 MG ONE (07:45)
[2022-03-19] MEDS: EXELON PATCH TD SCH (09:00)
[2022-03-19] MEDS: ASPIRIN EC 81 MG PO SCH (09:08)
[2022-03-19] MEDS: ARICEPT TAB 5 MG PO SCH (09:08)
[2022-03-19] MEDS: COLACE CAP 100 MG PO SCH ×2 (09:09→20:46)
[2022-03-19] MEDS: FLOMAX PO SCH (09:09)
[2022-03-19] MEDS: CARDIZEM CD 120 MG 24-HR PO SCH (09:09)
[2022-03-19] MEDS: CYMBALTA PO SCH (09:09)
[2022-03-19] MEDS: INVanz INJ 1 GRAM VIAL 1 G in NS 100 ML IV 100 ML IV SCH (09:10)
[2022-03-19] MEDS: LASIX PO SCH (09:11)
[2022-03-19] MEDS: LOPRESSOR TAB 50 MG PO SCH ×2 (09:12→20:47)
[2022-03-19] MEDS: MAXZIDE 37.5/25 MG PO SCH (09:12)
[2022-03-19] MEDS: MEGACE PO SCH ×2 (09:12→20:47)
[2022-03-19] MEDS: MICRO K EXTEN CAP 10 MEQ PO SCH (09:13)
[2022-03-19] MEDS: NYSTATIN SUSP PO SCH ×4 (09:13→20:47)
[2022-03-19] MEDS: PriLOSEC PO SCH (09:13)
[2022-03-19] MEDS: PATIENT'S HOME MEDICATION PO SCH (09:13)
[2022-03-19] MEDS: MOBIC TAB 15 MG PO SCH (09:14)
[2022-03-19] MEDS: NORVASC TAB 2.5 MG PO SCH (09:14)
[2022-03-19] MEDS: LOVENOX INJ 40 MG SYR SC SCH (09:53)
[2022-03-19 15:16] VITALS: BMI 22.4
[2022-03-19] MEDS: XANAX PO PRN (20:48)
[2022-03-19] MEDS: CRESTOR TAB 10 MG PO SCH (20:48)
[2022-03-20] MEDS: XOPENEX 1.25 MG/3 ML NEBULE NEB SCH ×3 (05:18→21:40)
[2022-03-20 05:38] LABS: BASOPHILS % (AUTO) 0.4 % (0.2-1.0); EOSINOPHILS # (AUTO) 0.3 x10^3/uL (0.0-0.2); EOSINOPHILS % (AUTO) 6.9 % (0.9-2.9); HEMATOCRIT 32.7 % (42.0-54.0); HEMOGLOBIN 11.7 g/dL (13.5-18.0); LYMPHOCYTES # (AUTO) 0.5 X10^3/uL (1.3-2.9); LYMPHOCYTES % (AUTO) 9.9 % (21.0-51.0); MEAN CORPUSCULAR HEMOGLOBIN 32.8 pg (27.0-34.0); MEAN CORPUSCULAR HGB CONC 35.9 g/dL (33.0-35.0); MEAN CORPUSCULAR VOLUME 91.3 fL (80.0-100.0); MEAN PLATELET VOLUME 7.7 fL (7.4-11.0); MONOCYTES # (AUTO) 0.5 x10^3/uL (0.3-0.8); MONOCYTES % (AUTO) 10.3 % (0.0-13.0); NEUTROPHILS # (AUTO) 3.5 x10^3/uL (2.2-4.8); NEUTROPHILS % (AUTO) 72.5 % (42.0-75.0); RED BLOOD COUNT 3.58 X10^6/uL (4.7-6.0); RED CELL DISTRIBUTION WIDTH 15.2 % (11.6-16.5); WHITE BLOOD COUNT 4.8 X10^3/uL (3.6-10.0)
[2022-03-20 05:59] LABS: ALBUMIN 2.4 g/dL (3.4-5.0); CALCIUM 8.7 mg/dL (8.5-10.1); CREATININE 1.46 mg/dL (0.70-1.30); TOTAL PROTEIN 5.8 g/dL (6.4-8.2)
[2022-03-20] MEDS ORDERED: NORVASC TAB 2.5 MG ONE (07:47)
[2022-03-20] MEDS: LOVENOX INJ 40 MG SYR SC SCH (08:00)
[2022-03-20] MEDS: MAXZIDE 37.5/25 MG PO SCH (08:22)
[2022-03-20] MEDS: FLOMAX PO SCH (08:23)
[2022-03-20] MEDS: MOBIC TAB 15 MG PO SCH (08:23)
[2022-03-20] MEDS: MEGACE PO SCH ×2 (08:23→21:16)
[2022-03-20] MEDS: CYMBALTA PO SCH (08:23)
[2022-03-20] MEDS: CARDIZEM CD 120 MG 24-HR PO SCH (08:23)
[2022-03-20] MEDS: LOPRESSOR TAB 50 MG PO SCH ×2 (08:23→21:16)
[2022-03-20] MEDS: ARICEPT TAB 5 MG PO SCH (08:23)
[2022-03-20] MEDS: PATIENT'S HOME MEDICATION PO SCH (08:24)
[2022-03-20] MEDS: MICRO K EXTEN CAP 10 MEQ PO SCH (08:24)
[2022-03-20] MEDS: ASPIRIN EC 81 MG PO SCH (08:24)
[2022-03-20] MEDS: PriLOSEC PO SCH (08:24)
[2022-03-20] MEDS: COLACE CAP 100 MG PO SCH ×2 (08:24→21:15)
[2022-03-20] MEDS: LASIX PO SCH (08:25)
[2022-03-20] MEDS: NORVASC TAB 2.5 MG PO SCH (08:25)
[2022-03-20] MEDS: INVanz INJ 1 GRAM VIAL 1 G in NS 100 ML IV 100 ML IV SCH (08:26)
[2022-03-20] MEDS: NYSTATIN SUSP PO SCH ×4 (08:26→21:17)
[2022-03-20] MEDS: EXELON PATCH TD SCH (08:38)
[2022-03-20] MEDS: MAGNESIUM SULFATE 1 GRAM/100 mL PREMIX 1 G/100 ML BAG IV PRN ×2 (12:39→13:30)
[2022-03-20] MEDS: CRESTOR TAB 10 MG PO SCH (21:16)
[2022-03-21] MEDS: XOPENEX 1.25 MG/3 ML NEBULE NEB SCH ×3 (06:00→21:36)
[2022-03-21] MEDS ORDERED: NORVASC TAB 2.5 MG ONE (07:48)
[2022-03-21] MEDS: ARICEPT TAB 5 MG PO SCH (09:15)
[2022-03-21] MEDS: COLACE CAP 100 MG PO SCH ×2 (09:15→22:58)
[2022-03-21] MEDS: ASPIRIN EC 81 MG PO SCH (09:15)
[2022-03-21] MEDS: CARDIZEM CD 120 MG 24-HR PO SCH (09:15)
[2022-03-21] MEDS: LASIX PO SCH (09:16)
[2022-03-21] MEDS: INVanz INJ 1 GRAM VIAL 1 G in NS 100 ML IV 100 ML IV SCH (09:16)
[2022-03-21] MEDS: EXELON PATCH TD SCH (09:16)
[2022-03-21] MEDS: FLOMAX PO SCH (09:16)
[2022-03-21] MEDS: CYMBALTA PO SCH (09:16)
[2022-03-21] MEDS: LOVENOX INJ 40 MG SYR SC SCH (09:17)
[2022-03-21] MEDS: LOPRESSOR TAB 50 MG PO SCH ×2 (09:17→22:59)
[2022-03-21] MEDS: MICRO K EXTEN CAP 10 MEQ PO SCH (09:17)
[2022-03-21] MEDS: MEGACE PO SCH ×2 (09:17→22:58)
[2022-03-21] MEDS: MAXZIDE 37.5/25 MG PO SCH (09:17)
[2022-03-21] MEDS: MOBIC TAB 15 MG PO SCH (09:18)
[2022-03-21] MEDS: NYSTATIN SUSP PO SCH ×4 (09:18→22:58)
[2022-03-21] MEDS: NORVASC TAB 2.5 MG PO SCH (09:18)
[2022-03-21] MEDS: PATIENT'S HOME MEDICATION PO SCH (09:19)
[2022-03-21] MEDS: PriLOSEC PO SCH (09:19)
--- NOTE | 2022-03-21 22:48 | PCM.PROG ---
Progress Note - Progress Note for Day of Date of Exam: 03/20/22 - Subjective Subjective: IS CURRENTLY INPATIENT, SWINGBED STATUS FOR PHYSCIAL THERAPY AND REHABILITATION DUE TO DECONDITIONING AND SEVERE WEAKNESS. HE IS ALSO RECEIVING ANTIBIOTICS FOR A UTI. TODAY, HE IS ALERT, LYING IN BED ON MORNING ROUNDS. HE CONTINUES WITH COMPLAINS OF GENERALIZED WEAKNESS. STAFF REPORTS THAT HE REQUIRES MODERATE ASSISTANCE WITH AMBULATION. THEY ALSO REPORT THAT HE CONTINUES WITH CONFUSION AT TIMES. ON EXAMINATION, HEART IS REGULAR IN RATE AND RHYTHM. BILATERAL LUNGS NOTED WITH DIMINISHED LUNG SOUNDS THROUGHOUT. ABDOMEN IS ROUND, SOFT, AND NON-TENDER WITH NORMAL BOWEL SOUNDS NOTED IN ALL QUADRANTS. NO UPPER OR LOWER EXTREMITY EDEMA IS NOTED. HIS VITALS THIS MORNING ARE: 97.-76 -18-95%-146/85. LABS WERE OBTAINED. WBC 4.8, RBC 3.58, HGB 11.7, HCT 32.7, PLT COUNT 200, SODIUM 137, POTASSIUM 3.3, BUN 20, CREATININE 1.46, GLUCOSE 132, MAGNESIUM 1.6, TOTAL PROTEIN 5.8, ALBUMIN 2.4. HE IS CURRENTLY RECEIVING NORMAL SALINE AT 75 ML/HR, INVANZ 1G IV DAILY, XOPENEX NEBS TID, XANAX 0.25MG PO BID PRN, AMLODIPINE 2.5MG PO DAILY, ECOTRIN 81MG PO DAILY, CARDIZEM CD 120MG PO DAILY, COLACE 100MG PO BID, ARICEPT 5MG PO DAILY, CYMBALTA 60MG PO DAILY, LOVENOX 40MG SC DAILY, LASIX 20MG PO DAILY, MEGACE 40MG PO BID, MOBIC 7.5MG PO DAILY, LOPRESSOR 50MG PO BID, NYSTATIN SUSPENSION 5ML PO QID, EXELON PATCH DAILY, CRESTOR 20MG PO HS, FLOMAX 0.4MG PO DAILY, RESTORIL 15MG PO HS PRN, ULTRAM 50MG PO TID PRN, AND MAXZIDE 37.5/25MG PO DAILY. HE HAS BEEN COOPERATIVE WITH PHYSICAL THERAPY. WE WILL CONTINUE WITH CURRENT PLAN OF CARE TODAY. OTHERWISE, WE PLAN TO FOLLOW-UP WITH AM LABS AND CONTINUE TO MONITOR. TIME SPENT ON CLINICAL ASSESSMENT, REVIEWING LABS AND IMAGING, DECISION MAKING, AND D OCUMENTATION GREATER THAN 45 MINUTES. - Past Medical Family Social History Past Med/Fam/Surg Hx: No changes since H&P Allergies: Allergies Penicillins Allergy (Verified 02/25/20 11:52) - Review of Systems ROS: No change since H&P - Vital Signs and I&O's Vital Signs: Temperature 98.9 F Pulse Rate [Apical] 76 Pulse Rate 81 Respiratory Rate 20 Blood Pressure [Right Arm] 152/80 Blood Pressure [Left Arm] 117/78 Blood Pressure [Standing] 144/83 Blood Pressure [Sitting] 179/96 Blood Pressure [Lying] 166/87 Blood Pressure 178/85 O2 Sat by Pulse Oximetry 96 Intake and Output: Intake & Output 03/19/22 03/20/22 03/21/22 03/22/22 11:59 11:59 11:59 11:59 Intake Total 2176 / 2176 2388 / 2388 2259 / 2259 663 / 663 Output Total 350 / 350 500 / 500 700 / 700 Balance 1826 / 1826 1888 / 1888 1559 / 1559 663 / 663 - Physical Exam Oriented: Person Eyes: Normal Ear: Normal Nose: Normal Throat: Normal Respiratory: Generalized, Diminished : Normal Auscultation: Bowel Sounds: Normal Palpation: Normal Tenderness: Normal Skin: Bruising Musculoskeletal: Normal Psychiatric: Normal Mood Description: Calm Affect: Normal Speech Pattern: Clear - Laboratory and Diagnostics Result Diagrams: 03/20/22 04:55 03/20/22 04:55 Labs: 03/14/22 12:05 Urine,Catheterized Urine Culture - Final Escherichia Coli Laboratory WBC 4.8 X10^3/uL (3.6-10.0) 03/20/22 04:55 RBC 3.58 X10^6/uL (4.7-6.0) L 03/20/22 04:55 Hgb 11.7 g/dL (13.5-18.0) L 03/20/22 04:55 Hct 32.7 % (42.0-54.0) L 03/20/22 04:55 MCV 91.3 fL (80.0-100.0) 03/20/22 04:55 MCH 32.8 pg (27.0-34.0) 03/20/22 04:55 MCHC 35.9 g/dL (33.0-35.0) H 03/20/22 04:55 RDW 15.2 % (11.6-16.5) 03/20/22 04:55 Plt Count 200 X10^3/uL (150.0-450.0) 03/20/22 04:55 MPV 7.7 fL (7.4-11.0) 03/20/22 04:55 Neut % (Auto) 72.5 % (42.0-75.0) 03/20/22 04:55 Lymph % (Auto) 9.9 % (21.0-51.0) L 03/20/22 04:55 [place] % (Auto) 10.3 % (0.0-13.0) 03/20/22 04:55 Eos % (Auto) 6.9 % (0.9-2.9) H 03/20/22 04:55 Baso % (Auto) 0.4 % (0.2-1.0) 03/20/22 04:55 Neut # (Auto) 3.5 x10^3/uL (2.2-4.8) 03/20/22 04:55 Lymph # (Auto) 0.5 X10^3/uL (1.3-2.9) L 03/20/22 04:55 [place] # (Auto) 0.5 x10^3/uL (0.3-0.8) 03/20/22 04:55 Eos # (Auto) 0.3 x10^3/uL (0.0-0.2) H 03/20/22 04:55 Baso # (Auto) 0.0 X10^3/uL (0.0-0.1) 03/20/22 04:55 Absolute Nucleated RBC 0.0 /100WBC 03/20/22 04:55 Sodium 137 mmol/L (136-145) 03/20/22 04:55 Corrected Sodium 138 mmol/L (136-145) 03/20/22 04:55 Potassium 3.3 mmol/L (3.5-5.1) L 03/20/22 04:55 Chloride 105 mmol/L (98-107) 03/20/22 04:55 Carbon Dioxide 23.0 mmol/L (21-32) 03/20/22 04:55 BUN 20 mg/dL (7-18) H 03/20/22 04:55 Creatinine 1.46 mg/dL (0.70-1.30) H 03/20/22 04:55 Est GFR (MDRD) Af Amer 59 (>60) 03/20/22 04:55 Est GFR (MDRD) Non-Af 49 (>60) L 03/20/22 04:55 Glucose 132 mg/dL (65-99) H 03/20/22 04:55 Calcium 8.7 mg/dL (8.5-10.1) 03/20/22 04:55 Corrected Calcium 10.0 mg/dL (8.5-10.1) 03/20/22 04:55 Magnesium 1.9 mg/dL (1.7-2.9) 03/21/22 05:11 Total Bilirubin 0.40 mg/dL (0.2-1.0) 03/20/22 04:55 AST 25 Units/L (15-37) 03/20/22 04:55 ALT 31 Units/L (12-78) 03/20/22 04:55 Alkaline Phosphatase 85 Units/L (46-116) 03/20/22 04:55 Total Protein 5.8 g/dL (6.4-8.2) L 03/20/22 04:55 Albumin 2.4 g/dL (3.4-5.0) L 03/20/22 04:55 Globulin 3.4 g/dL (2.5-4.5) 03/20/22 04:55 Albumin/Globulin Ratio 0.7 Ratio (1.1-2.1) L 03/20/22 04:55 Specimen Type Catherized urine 03/14/22 12:05 Urine Color Pale yellow (YELLOW) 03/14/22 12:05 Urine Appearance Cloudy (CLEAR) 03/14/22 12:05 Urine pH 7.0 (5.0 - 8.0) 03/14/22 12:05 Ur Specific [place] 1.015 (1.000-1.030) 03/14/22 12:05 Urine Protein 2+ (NEGATIVE) 03/14/22 12:05 Urine Glucose (UA) Negative (NEGATIVE) 03/14/22 12:05 Urine Ketones Negative (NEGATIVE) 03/14/22 12:05 Urine Blood 4+ (NEGATIVE) 03/14/22 12:05 Urine Nitrite Positive (NEGATIVE) 03/14/22 12:05 Urine Bilirubin Negative (NEGATIVE) 03/14/22 12:05 Urine Urobilinogen Normal (NORMAL) 03/14/22 12:05 Ur Leukocyte Esterase 3+ (NEGATIVE) 03/14/22 12:05 Urine RBC 5-10 /HPF (0-3) A 03/14/22 12:05 Urine WBC 10-20 /HPF (0-5) A 03/14/22 12:05 Ur Squamous Epith Cells Rare /HPF (NEGATIVE) 03/14/22 12:05 Amorphous Sediment Trace /HPF (NEGATIVE) 03/14/22 12:05 Urine Bacteria 3+ /HPF (NEGATIVE) 03/14/22 12:05 Ur Culture Indicated? Yes/culture set up 03/14/22 12:05 - Plan (1) Generalized weakness Status: Acute Plan: PHYSICAL THERAPY, NORMAL SALINE AT 75 ML/HR, INVANZ 1G IV DAILY, XOPENEX NEBS TID, XANAX 0.25MG PO BID PRN, AMLODIPINE 2.5MG PO DAILY, ECOTRIN 81MG PO DAILY, CARDIZEM CD 120MG PO DAILY, COLACE 100MG PO BID, ARICEPT 5MG PO DAILY, CYMBALTA 60MG PO DAILY, LOVENOX 40MG SC DAILY, LASIX 20MG PO DAILY, MEGACE 40MG PO BID, MOBIC 7.5MG PO DAILY, LOPRESSOR 50MG PO BID, NYSTATIN SUSPENSION 5ML PO QID, EXELON PATCH DAILY, CRESTOR 20MG PO HS, FLOMAX 0.4MG PO DAILY, RESTORIL 15M G PO HS PRN, ULTRAM 50MG PO TID PRN, AND MAXZIDE 37.5/25MG PO DAILY. (2) Urinary tract infection Status: Acute Qualifiers: Urinary tract infection type: acute cystitis Hematuria presence: without hematuria Qualified Code(s): N30.00 - Acute cystitis without hematuria (3) Physical deconditioning Status: Acute (4) Diabetes mellitus, type II Status: Chronic Qualifiers: Diabetes mellitus terminal supervisor insulin use: with terminal supervisor use Diabetes fish itus complication status: with hyperglycemia Qualified Code(s): E11.65 - Type 2 diabetes mellitus with hyperglycemia; Z79.4 - terminal supervisor (current) use of insulin (5) Hypertension Status: Chronic Qualifiers: Hypertension type: primary hypertension (6) Chronic systolic (congestive) heart failure Status: Chronic (7) Dementia Status: Chronic Qualifiers: Dementia type: unspecified type Dementia behavioral disturbance: without behavioral disturbance Qualified Code(s): F03.90 - Unspecified dementia without behavioral disturbance
[2022-03-21] MEDS: CRESTOR TAB 10 MG PO SCH (22:59)
[2022-03-21] MEDS: ULTRAM PO PRN (23:00)
[2022-03-21] MEDS: RESTORIL CAP 15 MG PO PRN (23:00)
[2022-03-21] MEDS: XANAX PO PRN (23:01)
[2022-03-22] MEDS: XOPENEX 1.25 MG/3 ML NEBULE NEB SCH ×3 (05:38→21:44)
[2022-03-22] MEDS ORDERED: NORVASC TAB 2.5 MG ONE (07:07)
[2022-03-22] MEDS: ARICEPT TAB 5 MG PO SCH (09:24)
[2022-03-22] MEDS: ASPIRIN EC 81 MG PO SCH (09:24)
[2022-03-22] MEDS: EXELON PATCH TD SCH (09:25)
[2022-03-22] MEDS: LOPRESSOR TAB 50 MG PO SCH ×2 (09:25→21:33)
[2022-03-22] MEDS: CARDIZEM CD 120 MG 24-HR PO SCH (09:26)
[2022-03-22] MEDS: COLACE CAP 100 MG PO SCH ×2 (09:26→21:32)
[2022-03-22] MEDS: CYMBALTA PO SCH (09:26)
[2022-03-22] MEDS: FLOMAX PO SCH (09:27)
[2022-03-22] MEDS: INVanz INJ 1 GRAM VIAL 1 G in NS 100 ML IV 100 ML IV SCH (09:28)
[2022-03-22] MEDS: PriLOSEC PO SCH (09:29)
[2022-03-22] MEDS: NORVASC TAB 2.5 MG PO SCH (09:30)
[2022-03-22] MEDS: LOVENOX INJ 40 MG SYR SC SCH (09:30)
[2022-03-22] MEDS: MAXZIDE 37.5/25 MG PO SCH (09:32)
[2022-03-22] MEDS: MEGACE PO SCH ×2 (09:32→21:33)
[2022-03-22] MEDS: MICRO K EXTEN CAP 10 MEQ PO SCH (09:32)
[2022-03-22] MEDS: MOBIC TAB 15 MG PO SCH (09:33)
[2022-03-22] MEDS: NYSTATIN SUSP PO SCH ×4 (09:33→21:32)
[2022-03-22] MEDS: LASIX PO SCH (09:33)
[2022-03-22] MEDS: PATIENT'S HOME MEDICATION PO SCH (09:33)
[2022-03-22] MEDS: CRESTOR TAB 10 MG PO SCH (21:33)
[2022-03-22] MEDS: RESTORIL CAP 15 MG PO PRN (21:43)
[2022-03-23 05:55] LABS: BASOPHILS % (AUTO) 0.3 % (0.2-1.0); EOSINOPHILS # (AUTO) 0.3 x10^3/uL (0.0-0.2); HEMATOCRIT 28.7 % (42.0-54.0); HEMOGLOBIN 10.3 g/dL (13.5-18.0); LYMPHOCYTES # (AUTO) 0.5 X10^3/uL (1.3-2.9); LYMPHOCYTES % (AUTO) 7.8 % (21.0-51.0); MEAN CORPUSCULAR HEMOGLOBIN 32.8 pg (27.0-34.0); MEAN PLATELET VOLUME 7.7 fL (7.4-11.0); MONOCYTES # (AUTO) 0.6 x10^3/uL (0.3-0.8); NEUTROPHILS # (AUTO) 5.2 x10^3/uL (2.2-4.8); NEUTROPHILS % (AUTO) 77.9 % (42.0-75.0); RED BLOOD COUNT 3.16 X10^6/uL (4.7-6.0); RED CELL DISTRIBUTION WIDTH 15.3 % (11.6-16.5); WHITE BLOOD COUNT 6.6 X10^3/uL (3.6-10.0)
[2022-03-23 06:01] LABS: ALBUMIN 2.7 g/dL (3.4-5.0); CARBON DIOXIDE 26.4 mmol/L (21-32); CREATININE 1.6 mg/dL (0.70-1.30); TOTAL PROTEIN 6.3 g/dL (6.4-8.2)
[2022-03-23] MEDS: XOPENEX 1.25 MG/3 ML NEBULE NEB SCH ×4 (06:10→20:32)
[2022-03-23] MEDS ORDERED: NS 1,000 ML IV 1,000 ML ONE (07:52)
[2022-03-23] MEDS: ARICEPT TAB 5 MG PO SCH (09:09)
[2022-03-23] MEDS: INVanz INJ 1 GRAM VIAL 1 G in NS 100 ML IV 100 ML IV SCH (09:10)
[2022-03-23] MEDS: MOBIC TAB 15 MG PO SCH (09:10)
[2022-03-23] MEDS: FLOMAX PO SCH (09:10)
[2022-03-23] MEDS: LASIX PO SCH (09:10)
[2022-03-23] MEDS: PATIENT'S HOME MEDICATION PO SCH (09:10)
[2022-03-23] MEDS: PriLOSEC PO SCH (09:10)
[2022-03-23] MEDS: NYSTATIN SUSP PO SCH ×4 (09:10→20:13)
[2022-03-23] MEDS: LOPRESSOR TAB 50 MG PO SCH ×2 (09:10→20:13)
[2022-03-23] MEDS: COLACE CAP 100 MG PO SCH ×2 (09:10→20:13)
[2022-03-23] MEDS: MEGACE PO SCH ×2 (09:10→20:13)
[2022-03-23] MEDS: MAXZIDE 37.5/25 MG PO SCH (09:10)
[2022-03-23] MEDS: CARDIZEM CD 120 MG 24-HR PO SCH (09:10)
[2022-03-23] MEDS: CYMBALTA PO SCH (09:10)
[2022-03-23] MEDS: NORVASC TAB 2.5 MG PO SCH (09:10)
[2022-03-23] MEDS ORDERED: NORVASC TAB 2.5 MG ONE (09:34)
[2022-03-23] MEDS: ASPIRIN 81 MG CHEWTAB PO SCH (10:10)
[2022-03-23] MEDS: MICRO K EXTEN CAP 10 MEQ PO SCH (10:12)
[2022-03-23] MEDS: LOVENOX INJ 40 MG SYR SC SCH (10:17)
[2022-03-23] MEDS: EXELON PATCH TD SCH (10:37)
--- NOTE | 2022-03-23 18:05 | PCM.PROG ---
Progress Note Progress Note for Day of Date of Exam: 03/23/22 Subjective Subjective: IS CURRENTLY INPATIENT, SWINGBED STATUS FOR PHYSCIAL THERAPY AND REHABILITATION DUE TO DECONDITIONING AND SEVERE WEAKNESS. HE IS ALSO RECEIVING ANTIBIOTICS FOR A UTI. The patient is alert and awake and reports no new problems. It is noted his blood pressure has been elevated over the last few days and is currently not at goal. Past Medical Family Social History Past Med/Fam/Surg Hx: No changes since H&P Allergies: Allergies Penicillins Allergy (Verified 02/25/20 11:52) Review of Systems ROS: No change since H&P Vital Signs and I&O's Vital Signs: Temperature 97.3 F Pulse Rate [Apical] 82 Pulse Rate 82 Respiratory Rate 22 Blood Pressure [Right Arm] 170/95 Blood Pressure [Left Arm] 117/78 Blood Pressure [Standing] 144/83 Blood Pressure [Sitting] 179/96 Blood Pressure [Lying] 166/87 Blood Pressure 178/85 O2 Sat by Pulse Oximetry 94 Intake and Output: Intake & Output 03/21/22 03/22/22 03/23/22 03/24/22 11:59 11:59 11:59 11:59 Intake Total 2259 / 2259 1003 / 1003 900 / 900 150 / 150 Output Total 700 / 700 100 / 100 1000 / 1000 Balance 1559 / 1559 903 / 903 -100 / -100 150 / 150 Physical Exam Oriented: Person Eyes: Normal Ear: Normal Nose: Normal Throat: Normal Respiratory: Generalized and Diminished Cardiovascular: Normal : Normal Auscultation: Bowel Sounds: Normal Palpation: Normal Tenderness: Normal Skin: Bruising Musculoskeletal: Normal Psychiatric: Normal Mood Description: Calm Affect: Normal Speech Pattern: Clear and Appropriate Laboratory and Diagnostics Result Diagrams: 03/23/22 05:12 03/23/22 05:12 Labs: 03/14/22 12:05 Urine,Catheterized Urine Culture - Final Escherichia Coli Laboratory WBC 6.6 X10^3/uL (3.6-10.0) 03/23/22 05:12 RBC 3.16 X10^6/uL (4.7-6.0) L 03/23/22 05:12 Hgb 10.3 g/dL (13.5-18.0) L 03/23/22 05:12 Hct 28.7 % (42.0-54.0) L 03/23/22 05:12 MCV 91.0 fL (80.0-100.0) 03/23/22 05:12 MCH 32.8 pg (27.0-34.0) 03/23/22 05:12 MCHC 36.0 g/dL (33.0-35.0) H 03/23/22 05:12 RDW 15.3 % (11.6-16.5) 03/23/22 05:12 Plt Count 233 X10^3/uL (150.0-450.0) 03/23/22 05:12 MPV 7.7 fL (7.4-11.0) 03/23/22 05:12 Neut % (Auto) 77.9 % (42.0-75.0) H 03/23/22 05:12 Lymph % (Auto) 7.8 % (21.0-51.0) L 03/23/22 05:12 [place] % (Auto) 9.0 % (0.0-13.0) 03/23/22 05:12 Eos % (Auto) 5.0 % (0.9-2.9) H 03/23/22 05:12 Baso % (Auto) 0.3 % (0.2-1.0) 03/23/22 05:12 Neut # (Auto) 5.2 x10^3/uL (2.2-4.8) H 03/23/22 05:12 Lymph # (Auto) 0.5 X10^3/uL (1.3-2.9) L 03/23/22 05:12 [place] # (Auto) 0.6 x10^3/uL (0.3-0.8) 03/23/22 05:12 Eos # (Auto) 0.3 x10^3/uL (0.0-0.2) H 03/23/22 05:12 Baso # (Auto) 0.0 X10^3/uL (0.0-0.1) 03/23/22 05:12 Absolute Nucleated RBC 0.0 /100WBC 03/23/22 05:12 Sodium 136 mmol/L (136-145) 03/23/22 05:12 Corrected Sodium 137 mmol/L (136-145) 03/23/22 05:12 Potassium 3.4 mmol/L (3.5-5.1) L 03/23/22 05:12 Chloride 103 mmol/L (98-107) 03/23/22 05:12 Carbon Dioxide 26.4 mmol/L (21-32) 03/23/22 05:12 BUN 23 mg/dL (7-18) H 03/23/22 05:12 Creatinine 1.60 mg/dL (0.70-1.30) H 03/23/22 05:12 Est GFR (MDRD) Af Amer 53 (>60) L 03/23/22 05:12 Est GFR (MDRD) Non-Af 44 (>60) L 03/23/22 05:12 Glucose 139 mg/dL (65-99) H 03/23/22 05:12 Calcium 9.0 mg/dL (8.5-10.1) 03/23/22 05:12 Corrected Calcium 10.0 mg/dL (8.5-10.1) 03/23/22 05:12 Magnesium 1.7 mg/dL (1.7-2.9) 03/23/22 05:12 Total Bilirubin 0.50 mg/dL (0.2-1.0) 03/23/22 05:12 AST 26 Units/L (15-37) 03/23/22 05:12 ALT 35 Units/L (12-78) 03/23/22 05:12 Alkaline Phosphatase 93 Units/L (46-116) 03/23/22 05:12 Total Protein 6.3 g/dL (6.4-8.2) L 03/23/22 05:12 Albumin 2.7 g/dL (3.4-5.0) L 03/23/22 05:12 Globulin 3.6 g/dL (2.5-4.5) 03/23/22 05:12 Albumin/Globulin Ratio 0.8 Ratio (1.1-2.1) L 03/23/22 05:12 Specimen Type Catherized urine 03/14/22 12:05 Urine Color Pale yellow (YELLOW) 03/14/22 12:05 Urine Appearance Cloudy (CLEAR) 03/14/22 12:05 Urine pH 7.0 (5.0 - 8.0) 03/14/22 12:05 Ur Specific [place] 1.015 (1.000-1.030) 03/14/22 12:05 Urine Protein 2+ (NEGATIVE) 03/14/22 12:05 Urine Glucose (UA) Negative (NEGATIVE) 03/14/22 12:05 Urine Ketones Negative (NEGATIVE) 03/14/22 12:05 Urine Blood 4+ (NEGATIVE) 03/14/22 12:05 Urine Nitrite Positive (NEGATIVE) 03/14/22 12:05 Urine Bilirubin Negative (NEGATIVE) 03/14/22 12:05 Urine Urobilinogen Normal (NORMAL) 03/14/22 12:05 Ur Leukocyte Esterase 3+ (NEGATIVE) 03/14/22 12:05 Urine RBC 5-10 /HPF (0-3) A 03/14/22 12:05 Urine WBC 10-20 /HPF (0-5) A 03/14/22 12:05 Ur Squamous Epith Cells Rare /HPF (NEGATIVE) 03/14/22 12:05 Amorphous Sediment Trace /HPF (NEGATIVE) 03/14/22 12:05 Urine Bacteria 3+ /HPF (NEGATIVE) 03/14/22 12:05 Ur Culture Indicated? Yes/culture set up 03/14/22 12:05 Plan (1) Generalized weakness: Status: Acute Plan: PHYSICAL THERAPY, NORMAL SALINE AT 75 ML/HR, INVANZ 1G IV DAILY, XOPENEX NEBS TID, XANAX 0.25MG PO BID PRN, AMLODIPINE 2.5MG PO DAILY, ECOTRIN 81MG PO DAILY, CARDIZEM CD 120MG PO DAILY, COLACE 100MG PO BID, ARICEPT 5MG PO DAILY, CYMBALTA 60MG PO DAILY, LOVENOX 40MG SC DAILY, LASIX 20MG PO DAILY, MEGACE 40MG PO BID, MOBIC 7.5MG PO DAILY, LOPRESSOR 50MG PO BID, NYSTATIN SUSPENSION 5ML PO QID, EXELON PATCH DAILY, CRESTOR 20MG PO HS, FLOMAX 0.4MG PO D AILY, RESTORIL 15MG PO HS PRN, ULTRAM 50MG PO TID PRN, AND MAXZIDE 37.5/25MG PO DAILY. (2) Urinary tract infection: Status: Acute Qualifiers: Urinary tract infection type: acute cystitis Hematuria presence: without hematuria Qualified Code(s): N30.00 - Acute cystitis without hematuria (3) Physical deconditioning: Status: Acute (4) Diabetes mellitus, type II: Status: Chronic Qualifiers: Diabetes mellitus exterminator helper insulin use: with exterminator helper use Diabetes mellitus complication status: with hyperglycemia Qualified Code(s): E11.65 - Type 2 diabetes mellitus with hyperglycemia; Z79.4 - computer terminal operator (current) use of insulin (5) Hypertension: Status: Chronic Qualifiers: Hypertension type: primary hypertension Plan: I will resume the patient's Maxide 1 tablet daily. (6) Chronic systolic (congestive) heart failure: Status: Chronic (7) Dementia: Status: Chronic Qualifiers: Dementia behavioral disturbance: without behavioral disturbance Dementia type: unspecified type Qualified Code(s): F03.90 - Unspecified dementia without behavioral disturbance
[2022-03-23] MEDS: CRESTOR TAB 10 MG PO SCH (20:13)
[2022-03-23] MEDS: ULTRAM PO PRN (20:14)
[2022-03-24] MEDS: XOPENEX 1.25 MG/3 ML NEBULE NEB SCH ×3 (05:47→20:00)
[2022-03-24] MEDS ORDERED: NORVASC TAB 2.5 MG ONE (08:13)
[2022-03-24] MEDS: ARICEPT TAB 5 MG PO SCH (08:56)
[2022-03-24] MEDS: PriLOSEC PO SCH (08:57)
[2022-03-24] MEDS: PATIENT'S HOME MEDICATION PO SCH (08:57)
[2022-03-24] MEDS: NORVASC TAB 2.5 MG PO SCH (08:58)
[2022-03-24] MEDS: MOBIC TAB 15 MG PO SCH (08:58)
[2022-03-24] MEDS: NYSTATIN SUSP PO SCH ×4 (08:58→20:56)
[2022-03-24] MEDS: MEGACE PO SCH ×2 (08:59→20:54)
[2022-03-24] MEDS: MICRO K EXTEN CAP 10 MEQ PO SCH (08:59)
[2022-03-24] MEDS: MAXZIDE 37.5/25 MG PO SCH (08:59)
[2022-03-24] MEDS: LOVENOX INJ 40 MG SYR SC SCH (09:00)
[2022-03-24] MEDS: LASIX PO SCH (09:00)
[2022-03-24] MEDS: LOPRESSOR TAB 50 MG PO SCH ×2 (09:01→20:54)
[2022-03-24] MEDS: INVanz INJ 1 GRAM VIAL 1 G in NS 100 ML IV 100 ML IV SCH (09:01)
[2022-03-24] MEDS: EXELON PATCH TD SCH (09:01)
[2022-03-24] MEDS: CYMBALTA PO SCH (09:02)
[2022-03-24] MEDS: CARDIZEM CD 120 MG 24-HR PO SCH (09:02)
[2022-03-24] MEDS: ASPIRIN 81 MG CHEWTAB PO SCH (09:02)
[2022-03-24] MEDS: COLACE CAP 100 MG PO SCH ×2 (09:02→20:54)
[2022-03-24] MEDS: FLOMAX PO SCH (09:03)
[2022-03-24] MEDS: XANAX PO PRN ×2 (09:12→20:54)
[2022-03-24] MEDS: CRESTOR TAB 10 MG PO SCH (20:54)
[2022-03-24] MEDS: ULTRAM PO PRN (20:54)
[2022-03-25] MEDS: XOPENEX 1.25 MG/3 ML NEBULE NEB SCH ×4 (05:00→21:12)
[2022-03-25 06:13] LABS: CALCIUM 9.8 mg/dL (8.5-10.1); CARBON DIOXIDE 23.1 mmol/L (21-32); CREATININE 1.73 mg/dL (0.70-1.30)
[2022-03-25 06:15] LABS: BASOPHILS % (AUTO) 0.4 % (0.2-1.0); EOSINOPHILS # (AUTO) 0.3 x10^3/uL (0.0-0.2); EOSINOPHILS % (AUTO) 4.7 % (0.9-2.9); HEMATOCRIT 37.9 % (42.0-54.0); HEMOGLOBIN 13.7 g/dL (13.5-18.0); LYMPHOCYTES # (AUTO) 0.7 X10^3/uL (1.3-2.9); LYMPHOCYTES % (AUTO) 10.9 % (21.0-51.0); MEAN CORPUSCULAR HEMOGLOBIN 32.9 pg (27.0-34.0); MEAN CORPUSCULAR HGB CONC 36.1 g/dL (33.0-35.0); MEAN CORPUSCULAR VOLUME 91.1 fL (80.0-100.0); MONOCYTES # (AUTO) 0.5 x10^3/uL (0.3-0.8); MONOCYTES % (AUTO) 8.5 % (0.0-13.0); NEUTROPHILS # (AUTO) 4.5 x10^3/uL (2.2-4.8); NEUTROPHILS % (AUTO) 75.5 % (42.0-75.0); RED BLOOD COUNT 4.16 X10^6/uL (4.7-6.0); RED CELL DISTRIBUTION WIDTH 15.9 % (11.6-16.5)
[2022-03-25 06:45] LABS: COR CA(FOR HYPOALB) 10.6 mg/dL (8.5-10.1); MAGNESIUM 1.9 mg/dL (1.7-2.9); TOTAL PROTEIN 6.8 g/dL (6.4-8.2)
[2022-03-25] MEDS ORDERED: NORVASC TAB 2.5 MG ONE (09:07)
[2022-03-25] MEDS: PriLOSEC PO SCH (09:33)
[2022-03-25] MEDS: ARICEPT TAB 5 MG PO SCH (09:33)
[2022-03-25] MEDS: NORVASC TAB 2.5 MG PO SCH (09:34)
[2022-03-25] MEDS: PATIENT'S HOME MEDICATION PO SCH (09:40)
[2022-03-25] MEDS: MOBIC TAB 15 MG PO SCH (09:41)
[2022-03-25] MEDS: MICRO K EXTEN CAP 10 MEQ PO SCH (09:42)
[2022-03-25] MEDS: NYSTATIN SUSP PO SCH ×4 (09:42→21:26)
[2022-03-25] MEDS: LOPRESSOR TAB 50 MG PO SCH ×2 (09:42→21:25)
[2022-03-25] MEDS: MAXZIDE 37.5/25 MG PO SCH (09:42)
[2022-03-25] MEDS: MEGACE PO SCH ×2 (09:44→21:25)
[2022-03-25] MEDS: LASIX PO SCH (09:44)
[2022-03-25] MEDS: LOVENOX INJ 40 MG SYR SC SCH (09:45)
[2022-03-25] MEDS: EXELON PATCH TD SCH (09:50)
[2022-03-25] MEDS: FLOMAX PO SCH (09:53)
[2022-03-25] MEDS: COLACE CAP 100 MG PO SCH ×2 (09:54→21:24)
[2022-03-25] MEDS: CYMBALTA PO SCH (09:54)
[2022-03-25] MEDS: ASPIRIN 81 MG CHEWTAB PO SCH (09:55)
[2022-03-25] MEDS: CARDIZEM CD 120 MG 24-HR PO SCH (09:55)
[2022-03-25] MEDS: INVanz INJ 1 GRAM VIAL 1 G in NS 100 ML IV 100 ML IV SCH (10:42)
[2022-03-25] MEDS: ULTRAM PO PRN (13:57)
[2022-03-25] MEDS: CRESTOR TAB 10 MG PO SCH (21:24)
[2022-03-25] MEDS: XANAX PO PRN (23:30)
[2022-03-26] MEDS: RESTORIL CAP 15 MG PO PRN (01:30)
[2022-03-26] MEDS: XOPENEX 1.25 MG/3 ML NEBULE NEB SCH ×3 (06:08→21:02)
[2022-03-26] MEDS ORDERED: NORVASC TAB 2.5 MG ONE (07:42)
[2022-03-26] MEDS: MOBIC TAB 15 MG PO SCH (08:46)
[2022-03-26] MEDS: MAXZIDE 37.5/25 MG PO SCH (08:46)
[2022-03-26] MEDS: ARICEPT TAB 5 MG PO SCH (08:46)
[2022-03-26] MEDS: CYMBALTA PO SCH (08:47)
[2022-03-26] MEDS: LOPRESSOR TAB 50 MG PO SCH ×2 (08:47→20:48)
[2022-03-26] MEDS: MEGACE PO SCH ×2 (08:47→20:48)
[2022-03-26] MEDS: MICRO K EXTEN CAP 10 MEQ PO SCH (08:47)
[2022-03-26] MEDS: FLOMAX PO SCH (08:47)
[2022-03-26] MEDS: ASPIRIN 81 MG CHEWTAB PO SCH (08:47)
[2022-03-26] MEDS: COLACE CAP 100 MG PO SCH ×2 (08:47→20:47)
[2022-03-26] MEDS: CARDIZEM CD 120 MG 24-HR PO SCH (08:47)
[2022-03-26] MEDS: LASIX PO SCH (08:48)
[2022-03-26] MEDS: EXELON PATCH TD SCH (08:48)
[2022-03-26] MEDS: NORVASC TAB 2.5 MG PO SCH (08:48)
[2022-03-26] MEDS: PriLOSEC PO SCH (08:48)
[2022-03-26] MEDS: INVanz INJ 1 GRAM VIAL 1 G in NS 100 ML IV 100 ML IV SCH (08:48)
[2022-03-26] MEDS: NYSTATIN SUSP PO SCH ×4 (08:49→20:48)
[2022-03-26] MEDS: PATIENT'S HOME MEDICATION PO SCH (08:49)
[2022-03-26] MEDS: LOVENOX INJ 40 MG SYR SC SCH (09:00)
--- NOTE | 2022-03-26 19:13 | PCM.PROG ---
Progress Note Progress Note for Day of Date of Exam: 03/26/22 Subjective Subjective: IS A PATIENT OF . HE IS CURRENTLY INPATIENT, SWINGBED STATUS FOR PHYSCIAL THERAPY AND REHABILITATION DUE TO DECONDITIONING AND SEVERE WEAKNESS. HE IS ALSO RECEIVING IV ANTIBIOTICS FOR A UTI. TODAY, HE IS ALERT, LYING IN BED ON MORNING ROUNDS. HE CONTINUES WITH COMPLAINS OF GENERALIZED WEAKNESS. STAFF REPORTS THAT HE CONTINUES TO REQUIRE MODERATE ASSISTANCE WITH AMBULATION. HE REQUIRES MAXIMUM ASSISTANCE TO MAINTAIN SITTING BALANCE. THERAPY REPORTS THAT HE IS UNABLE TO TRANSFER WITHOUT MODERATE ASSISTANCE. STAFF REPORTS THAT HE CONTINUES WITH CONFUSION AT TIMES. ON EXAMINATION, HEART IS REGULAR IN RATE AND RHYTHM. BILATERAL LUNGS NOTED WITH DIMINISHED LUNG SOUNDS THROUGHOUT. ABDOMEN IS ROUND, SOFT, AND NON-TENDER WITH NORMAL BOWEL SOUNDS NOTED IN ALL QUADRANTS. NO UPPER OR LOWER EXTREMITY EDEMA IS NOTED. HIS VITALS THIS MORNING ARE: 98.1-80-18-94%-128/70. LABS WERE OBTAINED YESTERDAY. WBC 6.0, RBC 4.16, HGB 13.7, HCT 37.9, SODIUM 136, POTASSIUM 3.5, CHLORIDE 102, BUN 29, CREATININE 1.73, GLUCOSE 127, MAGNESIUM 1.9, AST 24, ALT 26, ALK PHOS 97, TOTAL PROTEIN 6.8, ALBUMIN 3.0. HE IS CURRENTLY RECEIVING INVANZ 1G IV DAILY, XOPENEX NEBS TID, XANAX 0.25MG PO BID PRN, AMLODIPINE 2.5MG PO DAILY, ECOTRIN 81MG PO DAILY, CARDIZEM CD 120MG PO DAILY, COLACE 100MG PO BID, ARICEPT 5MG PO DAILY, CYMBALTA 60MG PO DAILY, LOVENOX 40MG SC DAILY, LASIX 20MG PO DAILY, MEGACE 40MG PO BID, MOBIC 7.5MG PO DAILY, LOPRESSOR 50MG PO BID, NYSTATIN SUSPENSION 5ML PO QID, EXELON PATCH DAILY, CRESTOR 20MG PO HS, FLOMAX 0.4MG PO DAILY, RESTORIL 15MG PO HS PRN, ULTRAM 50MG PO TID PRN, MAXZIDE 37.5/25MG PO DAILY, AND THE POTASSIUM AND MAGNESIUM PROTOCOLS. WE WILL CONTINUE WITH PHYSICAL THERAPY AND CURRENT PLAN OF CARE TODAY. OTHERWISE, WE PLAN TO FOLLOW-UP WITH AM LABS AND CONTINUE TO MONITOR. TIME SPENT ON CLINICAL ASSESSMENT, REVIEWING LABS AND IMAGING, DECISION MAKING, AND DOCUMENTATION GREATER THAN 45 MINUTES. Past Medical Family Social History Past Med/Fam/Surg Hx: No changes since H&P Allergies: Allergies Penicillins Allergy (Verified 02/25/20 11:52) Review of Systems ROS: No change since H&P Vital Signs and I&O's Vital Signs: Temperature 98.1 F Pulse Rate [Apical] 80 Pulse Rate 80 Respiratory Rate 18 Blood Pressure [Right Arm] 128/70 Blood Pressure [Left Arm] 117/78 Blood Pressure [Standing] 144/83 Blood Pressure [Sitting] 179/96 Blood Pressure [Lying] 166/87 Blood Pressure 178/85 O2 Sat by Pulse Oximetry 93 Intake and Output: Intake & Output 03/24/22 03/25/22 03/26/22 03/27/22 11:59 11:59 11:59 11:59 Intake Total 610 / 610 920 / 920 1290 / 1290 225 / 225 Output Total 900 / 900 475 / 475 Balance 610 / 610 815 / 815 225 / 225 Physical Exam Oriented: Person Eyes: Normal Ear: Normal Nose: Normal Throat: Normal Respiratory: Generalized and Diminished Cardiovascular: Normal : Normal Auscultation: Bowel Sounds: Normal Tenderness: Normal Skin: Bruising Musculoskeletal: Normal Psychiatric: Normal Mood Description: Calm Affect: Normal Speech Pattern: Clear and Appropriate Laboratory and Diagnostics Result Diagrams: 03/25/22 05:12 03/25/22 05:12 Labs: 03/14/22 12:05 Urine,Catheterized Urine Culture - Final Escherichia Coli Laboratory WBC 6.0 X10^3/uL (3.6-10.0) 03/25/22 05:12 RBC 4.16 X10^6/uL (4.7-6.0) L 03/25/22 05:12 Hgb 13.7 g/dL (13.5-18.0) D 03/25/22 05:12 Hct 37.9 % (42.0-54.0) L 03/25/22 05:12 MCV 91.1 fL (80.0-100.0) 03/25/22 05:12 MCH 32.9 pg (27.0-34.0) 03/25/22 05:12 MCHC 36.1 g/dL (33.0-35.0) H 03/25/22 05:12 RDW 15.9 % (11.6-16.5) 03/25/22 05:12 Plt Count 217 X10^3/uL (150.0-450.0) 03/25/22 05:12 MPV 8.0 fL (7.4-11.0) 03/25/22 05:12 Neut % (Auto) 75.5 % (42.0-75.0) H 03/25/22 05:12 Lymph % (Auto) 10.9 % (21.0-51.0) L 03/25/22 05:12 [place] % (Auto) 8.5 % (0.0-13.0) 03/25/22 05:12 Eos % (Auto) 4.7 % (0.9-2.9) H 03/25/22 05:12 Baso % (Auto) 0.4 % (0.2-1.0) 03/25/22 05:12 Neut # (Auto) 4.5 x10^3/uL (2.2-4.8) 03/25/22 05:12 Lymph # (Auto) 0.7 X10^3/uL (1.3-2.9) L 03/25/22 05:12 [place] # (Auto) 0.5 x10^3/uL (0.3-0.8) 03/25/22 05:12 Eos # (Auto) 0.3 x10^3/uL (0.0-0.2) H 03/25/22 05:12 Baso # (Auto) 0.0 X10^3/uL (0.0-0.1) 03/25/22 05:12 Absolute Nucleated RBC 0.2 /100WBC 03/25/22 05:12 Sodium 136 mmol/L (136-145) 03/25/22 05:12 Corrected Sodium 137 mmol/L (136-145) 03/25/22 05:12 Potassium 3.5 mmol/L (3.5-5.1) 03/25/22 05:12 Chloride 102 mmol/L (98-107) 03/25/22 05:12 Carbon Dioxide 23.1 mmol/L (21-32) 03/25/22 05:12 BUN 29 mg/dL (7-18) H 03/25/22 05:12 Creatinine 1.73 mg/dL (0.70-1.30) H 03/25/22 05:12 Est GFR (MDRD) Af Amer 49 (>60) L 03/25/22 05:12 Est GFR (MDRD) Non-Af 40 (>60) L 03/25/22 05:12 Glucose 127 mg/dL (65-99) H 03/25/22 05:12 Calcium 9.8 mg/dL (8.5-10.1) 03/25/22 05:12 Corrected Calcium 10.6 mg/dL (8.5-10.1) H 03/25/22 05:12 Magnesium 1.9 mg/dL (1.7-2.9) 03/25/22 05:12 Total Bilirubin 0.80 mg/dL (0.2-1.0) 03/25/22 05:12 AST 24 Units/L (15-37) 03/25/22 05:12 ALT 26 Units/L (12-78) 03/25/22 05:12 Alkaline Phosphatase 97 Units/L (46-116) 03/25/22 05:12 Total Protein 6.8 g/dL (6.4-8.2) 03/25/22 05:12 Albumin 3.0 g/dL (3.4-5.0) L 03/25/22 05:12 Globulin 3.8 g/dL (2.5-4.5) 03/25/22 05:12 Albumin/Globulin Ratio 0.8 Ratio (1.1-2.1) L 03/25/22 05:12 Specimen Type Catherized urine 03/14/22 12:05 Urine Color Pale yellow (YELLOW) 03/14/22 12:05 Urine Appearance Cloudy (CLEAR) 03/14/22 12:05 Urine pH 7.0 (5.0 - 8.0) 03/14/22 12:05 Ur Specific [place] 1.015 (1.000-1.030) 03/14/22 12:05 Urine Protein 2+ (NEGATIVE) 03/14/22 12:05 Urine Glucose (UA) Negative (NEGATIVE) 03/14/22 12:05 Urine Ketones Negative (NEGATIVE) 03/14/22 12:05 Urine Blood 4+ (NEGATIVE) 03/14/22 12:05 Urine Nitrite Positive (NEGATIVE) 03/14/22 12:05 Urine Bilirubin Negative (NEGATIVE) 03/14/22 12:05 Urine Urobilinogen Normal (NORMAL) 03/14/22 12:05 Ur Leukocyte Esterase 3+ (NEGATIVE) 03/14/22 12:05 Urine RBC 5-10 /HPF (0-3) A 03/14/22 12:05 Urine WBC 10-20 /HPF (0-5) A 03/14/22 12:05 Ur Squamous Epith Cells Rare /HPF (NEGATIVE) 03/14/22 12:05 Amorphous Sediment Trace /HPF (NEGATIVE) 03/14/22 12:05 Urine Bacteria 3+ /HPF (NEGATIVE) 03/14/22 12:05 Ur Culture Indicated? Yes/culture set up 03/14/22 12:05 Plan (1) Generalized weakness: Status: Acute Plan: PHYSICAL THERAPY, INVANZ 1G IV DAILY, XOPENEX NEBS TID, XANAX 0.25MG PO BID PRN, AMLODIPINE 2.5MG PO DAILY, ECOTRIN 81MG PO DAILY, CARDIZEM CD 120MG PO DAILY, COLACE 100MG PO BID, ARICEPT 5MG PO DAILY, CYMBALTA 60MG PO DAILY, LOVENOX 40MG SC DAILY, LASIX 20MG PO DAILY, MEGACE 40MG PO BID, MOBIC 7.5MG PO DAILY, LOPRESSOR 50MG PO BID, NYSTATIN SUSPENSION 5ML PO QID, EXELON PATCH DAILY, CRESTOR 20MG PO HS, FLOMAX 0.4MG PO DAILY, RESTORIL 15MG PO HS PRN, ULTRAM 50MG PO TID PRN, MAXZIDE 37.5/25MG PO DAILY, POTASSIUM AND MAGNESIUM PROTOCOL. (2) Urinary tract infection: Status: Acute Qualifiers: Urinary tract infection type: acute cystitis Hematuria presence: withou t hematuria Qualified Code(s): N30.00 - Acute cystitis without hematuria (3) Physical deconditioning: Status: Acute (4) Diabetes mellitus, type II: Status: Chronic Qualifiers: Diabetes mellitus [employer] insulin use: with residential use Diabetes mellitus complication status: with hyperglycemia Qualified Code(s): E11.65 - Type 2 diabetes mellitus with hyperglycemia; Z79.4 - prison (current) use of insulin (5) Hypertension: Status: Chronic Qualifiers: Hypertension type: primary hypertension Plan: I will resume the patient's Maxide 1 tablet daily. (6) Chronic systolic (congestive) heart failure: Status: Chronic (7) Dementia: Status: Chronic Qualifiers: Dementia behavioral disturbance: without behavioral disturbance Dementia type: unspecified type Qualified Code(s): F03.90 - Unspecified dementia without behavioral disturbance
[2022-03-26] MEDS: CRESTOR TAB 10 MG PO SCH (20:47)
[2022-03-27] MEDS: XANAX PO PRN ×2 (04:50→21:01)
[2022-03-27] MEDS: XOPENEX 1.25 MG/3 ML NEBULE NEB SCH ×3 (06:12→20:44)
[2022-03-27] MEDS ORDERED: NORVASC TAB 2.5 MG ONE (07:53)
[2022-03-27] MEDS: MICRO K EXTEN CAP 10 MEQ PO SCH (08:50)
[2022-03-27] MEDS: MAXZIDE 37.5/25 MG PO SCH (08:50)
[2022-03-27] MEDS: FLOMAX PO SCH (08:50)
[2022-03-27] MEDS: COLACE CAP 100 MG PO SCH ×2 (08:50→21:00)
[2022-03-27] MEDS: PriLOSEC PO SCH (08:50)
[2022-03-27] MEDS: LOPRESSOR TAB 50 MG PO SCH ×2 (08:50→21:01)
[2022-03-27] MEDS: MEGACE PO SCH ×2 (08:50→21:00)
[2022-03-27] MEDS: CYMBALTA PO SCH (08:50)
[2022-03-27] MEDS: ARICEPT TAB 5 MG PO SCH (08:51)
[2022-03-27] MEDS: NORVASC TAB 2.5 MG PO SCH (08:51)
[2022-03-27] MEDS: LASIX PO SCH (08:51)
[2022-03-27] MEDS: MOBIC TAB 15 MG PO SCH (08:51)
[2022-03-27] MEDS: EXELON PATCH TD SCH (08:51)
[2022-03-27] MEDS: ASPIRIN 81 MG CHEWTAB PO SCH (08:51)
[2022-03-27] MEDS: CARDIZEM CD 120 MG 24-HR PO SCH (08:51)
[2022-03-27] MEDS: NYSTATIN SUSP PO SCH ×4 (08:52→21:01)
[2022-03-27] MEDS: PATIENT'S HOME MEDICATION PO SCH (08:52)
[2022-03-27] MEDS: INVanz INJ 1 GRAM VIAL 1 G in NS 100 ML IV 100 ML IV SCH (08:52)
[2022-03-27] MEDS: LOVENOX INJ 40 MG SYR SC SCH (09:00)
[2022-03-27] MEDS: CRESTOR TAB 10 MG PO SCH (21:00)
[2022-03-28] MEDS: XOPENEX 1.25 MG/3 ML NEBULE NEB SCH ×3 (06:15→20:10)
[2022-03-28 06:23] LABS: BASOPHILS % (AUTO) 0.2 % (0.2-1.0); EOSINOPHILS # (AUTO) 0.3 x10^3/uL (0.0-0.2); HEMATOCRIT 39.5 % (42.0-54.0); HEMOGLOBIN 13.8 g/dL (13.5-18.0); LYMPHOCYTES # (AUTO) 0.5 X10^3/uL (1.3-2.9); LYMPHOCYTES % (AUTO) 9.7 % (21.0-51.0); MEAN CORPUSCULAR HEMOGLOBIN 32.5 pg (27.0-34.0); MEAN CORPUSCULAR HGB CONC 34.9 g/dL (33.0-35.0); MEAN CORPUSCULAR VOLUME 93.3 fL (80.0-100.0); MEAN PLATELET VOLUME 8.1 fL (7.4-11.0); MONOCYTES # (AUTO) 0.5 x10^3/uL (0.3-0.8); NEUTROPHILS % (AUTO) 76.1 % (42.0-75.0); RED BLOOD COUNT 4.24 X10^6/uL (4.7-6.0); RED CELL DISTRIBUTION WIDTH 15.6 % (11.6-16.5); WHITE BLOOD COUNT 5.2 X10^3/uL (3.6-10.0)
[2022-03-28 06:41] LABS: ALBUMIN 3.1 g/dL (3.4-5.0); CALCIUM 9.9 mg/dL (8.5-10.1); COR CA(FOR HYPOALB) 10.6 mg/dL (8.5-10.1); CREATININE 2.29 mg/dL (0.70-1.30); TOTAL PROTEIN 7.1 g/dL (6.4-8.2)
[2022-03-28] MEDS ORDERED: NORVASC TAB 2.5 MG ONE (08:29)
[2022-03-28] MEDS: INVanz INJ 1 GRAM VIAL 0.5 G in NS 50 ML IV 50 ML IV SCH (08:49)
[2022-03-28] MEDS: MAXZIDE 37.5/25 MG PO SCH (08:50)
[2022-03-28] MEDS: PriLOSEC PO SCH (08:50)
[2022-03-28] MEDS: MOBIC TAB 15 MG PO SCH (08:51)
[2022-03-28] MEDS: MICRO K EXTEN CAP 10 MEQ PO SCH (08:51)
[2022-03-28] MEDS: ARICEPT TAB 5 MG PO SCH (08:51)
[2022-03-28] MEDS: COLACE CAP 100 MG PO SCH ×2 (08:51→20:28)
[2022-03-28] MEDS: FLOMAX PO SCH (08:52)
[2022-03-28] MEDS: LOPRESSOR TAB 50 MG PO SCH ×2 (08:52→20:27)
[2022-03-28] MEDS: MEGACE PO SCH ×2 (08:52→20:27)
[2022-03-28] MEDS: LASIX PO SCH (08:53)
[2022-03-28] MEDS: CARDIZEM CD 120 MG 24-HR PO SCH (08:53)
[2022-03-28] MEDS: ASPIRIN 81 MG CHEWTAB PO SCH (08:53)
[2022-03-28] MEDS: PATIENT'S HOME MEDICATION PO SCH (08:54)
[2022-03-28] MEDS: NYSTATIN SUSP PO SCH ×4 (08:54→20:27)
[2022-03-28] MEDS: CYMBALTA PO SCH (08:54)
[2022-03-28] MEDS: LOVENOX INJ 40 MG SYR SC SCH (08:55)
[2022-03-28] MEDS: NORVASC TAB 2.5 MG PO SCH (08:55)
[2022-03-28] MEDS: EXELON PATCH TD SCH (08:56)
[2022-03-28] MEDS: NS 1,000 ML IV 1,000 ML IV SCH ×2 (09:48→19:41)
[2022-03-28 19:12] LABS: BILIRUBIN,URINE NEGATIVE (NEGATIVE); BLOOD/HEMOGLOBIN,URINE 4+ (NEGATIVE); GLUCOSE, URINE NEGATIVE (NEGATIVE); KETONES,URINE NEGATIVE (NEGATIVE); LEUKOCYTE ESTERASE ,URINE NEGATIVE (NEGATIVE); NITRITES,URINE NEGATIVE (NEGATIVE); PROTEIN,URINE NEGATIVE (NEGATIVE); UROBILINOGEN,URINE NORMAL (NORMAL)
[2022-03-28 19:24] LABS: APPEARANCE,URINE CLEAR (CLEAR); COLOR,URINE YELLOW (YELLOW)
[2022-03-28] MEDS ORDERED: CRESTOR TAB 10 MG PO ONE (19:24)
[2022-03-28 19:29] LABS: BACTERIA,URINE NEGATIVE /HPF (NEGATIVE); HYALINE CASTS, URINE FEW /LPF (NEGATIVE); SQUAMOUS EPITHELIAL CELL,UR NEGATIVE /HPF (NEGATIVE)
[2022-03-28] MEDS ORDERED: CRESTOR TAB 10 MG PO SCH (21:00)
[2022-03-28] MEDS: XANAX PO PRN (23:30)
[2022-03-29] MEDS: NS 1,000 ML IV 1,000 ML IV SCH (00:09)
[2022-03-29] MEDS: XOPENEX 1.25 MG/3 ML NEBULE NEB SCH (05:07)
[2022-03-29] MEDS ORDERED: NORVASC TAB 2.5 MG ONE (07:39)
[2022-03-29] MEDS: CARDIZEM CD 120 MG 24-HR PO SCH (08:01)
[2022-03-29] MEDS: CYMBALTA PO SCH (08:01)
[2022-03-29] MEDS: LOPRESSOR TAB 50 MG PO SCH (08:01)
[2022-03-29] MEDS: ASPIRIN 81 MG CHEWTAB PO SCH (08:02)
[2022-03-29] MEDS: PriLOSEC PO SCH (08:02)
[2022-03-29] MEDS: FLOMAX PO SCH (08:02)
[2022-03-29] MEDS: COLACE CAP 100 MG PO SCH (08:02)
[2022-03-29] MEDS: ARICEPT TAB 5 MG PO SCH (08:04)
[2022-03-29] MEDS: NORVASC TAB 2.5 MG PO SCH (08:04)
[2022-03-29] MEDS: MEGACE PO SCH (08:05)
[2022-03-29] MEDS: LASIX PO SCH (08:05)
[2022-03-29] MEDS: MOBIC TAB 15 MG PO SCH (08:06)
[2022-03-29] MEDS: MICRO K EXTEN CAP 10 MEQ PO SCH (08:06)
[2022-03-29] MEDS: LOVENOX INJ 40 MG SYR SC SCH (08:07)
[2022-03-29] MEDS: INVanz INJ 1 GRAM VIAL 0.5 G in NS 50 ML IV 50 ML IV SCH (08:08)
[2022-03-29] MEDS: NYSTATIN SUSP PO SCH (08:08)
[2022-03-29] MEDS: PATIENT'S HOME MEDICATION PO SCH (08:08)
[2022-03-29 08:34] VITALS: BP 158/87
[2022-03-29] MEDS: EXELON PATCH TD SCH (08:58)
== END 2022-03-29 12:00 | DRG 948 ==
LOC: ICU 11:31 → MED/SURG 03-12 14:40
PROVIDERS: ADMIT Internal Medicine; ATTEND Internal Medicine